=== PATIENT | male | born 1965 | race Caucasian/White ===

== ENCOUNTER 2016-05-17 11:46 | Inpatient (IN) | payer OTHER ==
[~2016-05-17] VITALS: Ht 180.3 cm; Wt 96.6 kg
[2016-05-17] VITALS (15 sets, daily range): BP systolic 131–169; BP diastolic 68–104; PULSE 99–138; RESP 14–24; O2SAT 89–99
[~2016-05-17 11:46] MED LIST: CARI350T PO; CITA20TA11 PO; HYDR50TA3 PO; INSU100I13 SUBQ; INSU100V28 SUBQ; LISI40TA PO; OXYC5CAP4 PO
--- NOTE | 2016-05-17 11:55 | ED.REPORT ---
HPI-Abd Pain M 40 and Over Date of Service May 17, 2016 ED Provider: Quan Gonzalez MD Pt is a 50 y/o male w/ a hx of IDDM, portal gastropathy, HTN, diverticulosis, hereditary hemochromatosis, hx colon polyps, presenting to the ED via EMS c/o vomiting onset this morning. He vomited once yesterday at noon and this morning at 02:00 he vomited coffee-ground emesis and called EMS. He c/o associated soft dark stool (non-melena), upper abdominal pain. He denies diarrhea, fever, chills , CP, SOB. The pt states he had a terrible flu-like illness 2 weeks ago which caused him to be bedridden. Last endoscopy 01/28/16 with final diagnosis of portal gastropathy. Nursing Notes Stated Complaint: VOMITING Chief Complaint: Male Abdominal Pain Nursing Notes Reviewed: Yes Allergies: Coded Allergies: No Known Drug Allergies (Verified Allergy, Unknown, 05/17/16) Scheduled Amlodipine (Amlodipine) 10 Mg Tablet 10 MG PO DAILY Atorvastatin (Lipitor) 10 Mg Tab 10 MG PO DAILY Citalopram (Citalopram) 20 Mg Tablet 20 MG PO DAILY Hydrochlorothiazide (Hydrochlorothiazide) 50 Mg Tablet 50 MG PO DAILY Insulin Glargine (Lantus U100 Solostar Insulin Pen) 100 Unit/1 Ml Insuln.pen 35 UNIT SUBQ EVENING Insulin Regular, Human (HUMulin-R U100 Insulin Vial) 100 Unit/1 Ml Vial 3-5 UNIT SUBQ ACHS SLIDING SCALE Lansoprazole DR (Prevacid) 30 Mg Capsule 20 MG PO DAILY Lisinopril (Lisinopril) 40 Mg Tablet 40 MG PO DAILY Lisinopril (Lisinopril) 40 Mg Tablet 40 MG PO DAILY Scheduled PRN Carisoprodol (Soma) 350 Mg Tablet 350 MG PO BID PRN PRN For Spasm Ondansetron ODT (Zofran ODT) 4 Mg Tablet 4 MG PO Q4H PRN PRN For Nausea Oxycodone (Roxicodone) 5 Mg Tablet 5 MG PO TID PRN PRN For Pain General Time Seen by MD: 11:53 Chief Complaint Other (Vomiting) Hx Obtained From: Patient, EMS Arrived By: Ambulance Sudden in Onset?: Yes Onset Occurred: Yesterday Symptom Duration: Intermittent Progression since Onset: Intermittent Location: : Abdomen upper Quality: Painful Radiation: : Does not radiate Severity: Current: Moderate Severity: Maximum: Moderate Past Medical History Past Medical History Notes: Followed by Dr. 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 Physical Exam Initial Vital Signs Vital Signs (First) Date Time Temp Pulse Resp B/P Pulse Ox O2 Delivery O2 Flow Rate FiO2 05/17/16 11:48 36.5 127 24 157/104 99 Room Air Initial VS: Reviewed, Vital signs abnormal Head / Eyes: Atraumatic, Normocephalic, PERRL ENT: Mucous membranes moist, Conjunctiva normal, No scleral icterus Neck: Supple, Full range of motion Extremities: Vascular intact, Neuro intact, No swelling, No tenderness Neurologic: Alert, Oriented, Nonfocal Psychiatric: Mood/affect normal, Behavior normal, Normal thought content General/Constitutional: Awake, Alert, Cooperative, Not toxic appearing Respiratory / Chest: Atraumatic, Breath sounds NL, Breath sounds = bilat, No respiratory distress, No rales, No rhonchi, No wheezing, No retractions, No stridor, No chest tenderness, No chest wall deformity, No crepitus Cardiovascular: Regular rhythm, Heart sounds NL, No gallop, No murmurs, No rubs , Cap refill not delayed, Peripheral circulation NL Heart Rate / Rhythm: Positive: Tachycardia Abdomen: Atraumatic, Soft, No rebound, No distention Upper abdominal tenderness with guarding Back: Full range of motion, Painless range of motion Skin: Atraumatic, Warm, Dry, Intact Color / Condition: Positive: Rash present Rash / Lesion Notes: Patchy multiple erythematous macules over chest, confluent with upper back Rectum / Perineum: Atraumatic, No gross blood Brown liquid stool Faintly guaiac positive Interpretation & Diagnostics Lab Results Interpretation Result Diagram: 05/17/16 1214 05/17/16 1214 Test 05/17/16 12:14 White Blood Count 15.5th/mm3 (3.8-10.1) Red Blood Count 5.35mil/mm3 (4.40-5.80) Hemoglobin 16.9g/dL (13.8-17.2) Hematocrit 45.8% (41.0-50.0) Mean Corpuscular Volume 85.6fL (81-100) Mean Corpuscular Hemoglobin 31.6pg (27.0-35.0) Mean Corpuscular Hemoglobin Concent 36.9% (32.0-37.0) Red Cell Distribution Width 12.9% (12.3-15.4) Platelet Count 134bil/L (150-400) Neutrophils (%) (Auto) 79.0% (40-74) Lymphocytes (%) (Auto) 12.1% (14-46) Monocytes (%) (Auto) 8.5% (4-12) Eosinophils (%) (Auto) 0% (0-5) Basophils (%) (Auto) 0.1% (0-3) Prothrombin Time 10.9sec (8.1-12.5) Prothromb Time International Ratio 1.02ratio Sodium Level 136mEq/L (134-144) Potassium Level 3.3mEq/L (3.5-5.2) Chloride Level 89mEq/L (97-108) Carbon Dioxide Level 24mmol/L (18-29) Blood Urea Nitrogen 23mg/dL (6-24) Creatinine 1.01mg/dL (0.76-1.27) Estimat Glomerular Filtration Rate 82mL/min (>59) Glucose Level 277mg/dL (60-99) Calcium Level 10.6mg/dL (8.5-10.1) Magnesium Level 1.9mg/dL (1.6-2.6) Total Bilirubin 1.1mg/dL (0.0-1.2) Aspartate Amino Transf (AST/SGOT) 27U/L (0-50) Alanine Aminotransferase (ALT/SGPT) 26U/L (0-44) Alkaline Phosphatase 90U/L (25-150) Total Protein 9.2g/dL (6.4-8.4) Albumin 5.3g/dL (3.4-5.0) Re-Eval/Medical Decision Source of Hx: Old records, EMS Time of Eval: 13:53 Patient Status: Condition improved, Moderate relief, Pain improved Re-Evaluation/Progress Note: Pt rechecked. Sleeping comfortably and is easily aroused. He is much improved and is no longer vomiting after medications. Abdomen is non-tender. He feels appropriate to be discharged as long as he can walk. Orthostatics will be performed. Time of Eval: 15:06 Re-Evaluation/Progress Note: Pt rechecked. The patient is orthostatic both objectively and subjectively and will be admitted. Informed pt of need for admission. Pt understands and agrees with plan for admission. All questions addressed. Consultation #1: Referral / Consult Name: Go Covington MD Call Returned at: 15:14 Receiving Worker: Will see patient, Agrees with eval, Agrees with plan Note: Case discussed with GI. Requests a second IV be placed. Will perform endoscopy later today. Consultation #2: Referral / Consult Name: Emma Sunshine MD Consulted With: Hospitalist Call Returned at: 15:39 Receiving Worker: Will see patient, Agrees with eval, Agrees with plan, Accepts admit Note: Case discussed. Counseled Regarding: Diagnosis, Lab results, Need for admission Discharge & Departure Primary Impression: Generalized abdominal pain Additional Impressions: Vomiting Vomiting type: unspecified Vomiting Intractability: non-intractable Nausea presence: unspecified Qualified Code: R11.10 - Vomiting, unspecified Hematochezia Orthostasis Disposition: ADMITTED TO HOSPITAL Vital Signs - All Vital Signs Date Time Temp Pulse Resp B/P Pulse Ox O2 Delivery O2 Flow Rate FiO2 05/17/16 14:35 138 24 151/94 95 Room Air 05/17/16 14:30 113 14 169/96 97 Room Air 05/17/16 14:05 108 17 136/68 95 Room Air 05/17/16 11:48 36.5 127 24 157/104 99 Room Air )( All Prior VS Reviewed: Yes Condition: Stable Referrals: Zelalem Echols MD (PCP) Scribe Attestation Portions of this note were transcribed by Min Savage. I, Dr. Gonzalez personally performed the history, physical exam and medical decision-making; I reviewed and confirmed the accuracy of the information in the transcribed note. Signed by Sunitha Mejia, 05/17/16 - 0402 copies to: Zelalem Echols MD, Kirk H MD May 17, 2016 11:55 MIN SAVAGE May 17, 2016 12:01
[2016-05-17] MEDS ORDERED: 0.9% Sodium Chloride 1,000 ML IV ONE (12:01)
[2016-05-17] MEDS ORDERED: Acetaminophen IV 1,000 MG in IV Premix 1 EACH IV ONE (12:05)
[2016-05-17] MEDS ORDERED: Pantoprazole 4 mg/mL 10 mL Inj IVPUSH ONE (12:05)
[2016-05-17] MEDS ORDERED: MetoCLOpramide 5 mg/mL 2 mL Inj IVPUSH ONE ×2 (12:05→15:05)
[2016-05-17] MEDS ORDERED: AMLO10TA3 PO (12:09)
[2016-05-17] MEDS ORDERED: ATRV10T PO (12:09)
[2016-05-17] MEDS ORDERED: LISI40TA PO (12:09)
[2016-05-17] MEDS ORDERED: OXYC-474 PO (12:09)
[2016-05-17 12:18] LABS: BASOPHILS % (AUTO) 0.1 % (0-3); EOSINOPHILS % (AUTO) 0 % (0-5); MONOCYTES % (AUTO) 8.5 % (4-12); Mean Corpuscular Hemoglobin 31.6 pg (27.0-35.0); Mean Corpuscular Volume 85.6 fL (81-100); Platelet Count 134 bil/L (150-400)
[2016-05-17 12:22] LABS: INR 1.02 ratio
[2016-05-17 12:30] LABS: Magnesium 1.9 mg/dL (1.6-2.6)
[2016-05-17] MEDS ORDERED: LANS30CA14 PO (14:01)
[2016-05-17] MEDS ORDERED: ONDA4TAB9 PO (14:01)
[2016-05-17] MEDS ORDERED: HYDROmorphone 1 mg/mL Inj IVPUSH PRN (15:05)
[2016-05-17] MEDS ORDERED: Pantoprazole Inj 80 MG, Pharmacy To Mix 1 EA in 0.9% Sodium Chloride 80 ML IV ONE ×2 (15:05)
--- NOTE | 2016-05-17 15:49 | PCM.HPANE ---
Patient Data Surgeon Admitting Provider: Attending Provider:Go Covington MD Primary Care Physician:Zelalem Echols MD Other Provider: Reason for Visit Upper Gi Bleed Ht/WT & BMI Height (Feet): 5 Height (Inches): 11 Weight (Kilograms): 95.91 Body Mass Index Allergies Coded Allergies: No Known Drug Allergies (Verified Allergy, Unknown, 05/17/16) Past Anesthesia History Anesthesia History: Denies:: Abnormal Airway, Anesthesia Reactions, Difficult Intubation, Fam Anesthesia Reaction, Fam Malignant Hypertherm, Malignant Hyperthermia Diabetes History Hx Diabetes?: Yes Type of Diabetes: Type II Glycemic Control: Insulin Dependent MRSA MRSA: No Medications Active Scripts Ondansetron ODT (Zofran ODT)4 Mg Tablet4 Mg PO Q4H PRN For Nausea #20 TABLET Prov:Quan Gonzalez MD 05/17/[address] (Prevacid)30 Mg [id number] Mg PO DAILY #20 CAPSULE Ref 0 Prov:Quan Gonzalez MD 05/17/16 Reported Medications Atorvastatin (Lipitor)10 Mg Tab10 Mg PO DAILY Ref 0 05/17/16 Amlodipine 10 Mg Heytau06 Mg PO DAILY Ref 0 05/17/16 Lisinopril 40 Mg [id number] Mg PO DAILY 30 Days Ref 0 05/17/16 Oxycodone (Roxicodone)5 Mg Tablet5 Mg PO TID PRN For Pain Ref 0 05/17/16 Hydrochlorothiazide 50 Mg Rcagua79 Mg PO DAILY Ref 0 12/06/15 Lisinopril 40 Mg Xgdwxo15 Mg PO DAILY Ref 0 12/06/15 Carisoprodol (Soma)350 Mg Wesrik186 Mg PO BID PRN For Spasm 08/23/15 Insulin Regular, Human (HUMulin-R U100 Insulin Vial)100 Unit/1 Ml Vial3-5 Unit SUBQ ACHS #1 VIAL Ref 0 SLIDING SCALE 06/25/15 Citalopram 20 Mg Hyvckq72 Mg PO DAILY Ref 0 06/25/15 Insulin Glargine (Lantus U100 Solostar Insulin Pen)100 Unit/1 Ml Insuln.pen35 Unit SUBQ EVENING #1 PENINJ Ref 0 04/29/14 Discontinued Scripts oxyCODONE 5 Mg Capsule5 Mg PO Q4H PRN For Pain #20 CAPSULE Ref 0 Prov:Jermaine Zendejas MD 12/03/13 History History of ENT Problems?: No HEENT History: Denies:: Abnormal Airway Difficult Intubation Dysphagia Hearing Problem Sinus Problem Hx of Heart Problems?: Yes Cardiovascular History: Positive for:: Edema (ANKLES, none present today) Hypertension (hyperlipidemia) Denies:: AICD Atrial Fibrillation Chest Pain Congestive Heart Failure Heart Murmur Pacemaker Rheumatic Fever Thrombophlebitis Valvular Heart Disease Hx of Respiratory Problem?: No Respiratory History: Positive for:: Cough Dyspnea Denies:: Asthma COPD Emphysema Hemoptysis Pneumonia Tuberculosis Use of C-PAP Machine Hx Neurologic Problems?: Yes Neurological History: Positive for:: Headaches Denies:: Alzheimer's Disease CVA Dementia Dizziness Seizures Hx of GI Problems?: Yes Gastrointestinal History: Positive for:: Cirrhosis Gastroesphageal Reflux Hepatitis (hep C s/p anti-retroviral therapy(HARVONI)) Denies:: Diverticulitis (DIVERTICULOSIS) Heartburn Hiatal Hernia Rectal Bleeding (HX OF COLON POLYPS) Hx of Problems?: Yes Genitourinary History: Positive for:: Kidney Stones (HX OF) Denies:: HX of Hemodialysis Urinary Tract Infection Male Hx: Positive for:: Prostate Problems (S/P TUR PROSTATIC ABCESS 2013) Denies:: Scrotal Mass Testicular Surgery Skin History: Positive for:: History Skin Disorders? (HX OF CHRONIC PRURITIS/ RASHES) Denies:: Pressure Ulcers Hx Musculoskeletal Problems?: Yes Musculoskeletal History: Positive for:: Back Injury (chronic back pain) Musculoskeletal Trauma (HX FX HAND/WRIST S/P RPR MCA'S X3) Denies:: Joint Replacement Hx of Psycho/Social Problems?: Yes Psycho Social History: Positive for:: Anxiety Hx Depression Denies:: Bipolar Disorder Hx Surgeries?: Yes (BACK, HIP, FINGER WRIST, prostate) Hx Any Other Health Problems?: Yes Other History: Positive for:: Hospitalization Denies:: Cancer Endocrine Disease (c/of chills) Thyroid Disease History Blood Transfusions: Denies:: Blood Transfuse Reaction Blood Transfusions Hx Diabetes: Yes Hx Alcohol Use: Yes (OCCASIONALLY)Hx Substance Use: Yes (CURRENT MARIJUANA; HX (REMOTE) OF COCAINE) Smoking Status: Never Smoker Have You Smoked inLast 12 mo: No Stop/Bang Risk Assessment Category Category 1A: Patient has history of documented sleep apnea, and HAS NOT received any narcotic, sedative or anesthesia administration during this stay. Category 1B: Patient has history of documented sleep apnea, and HAS received any narcotic , sedative or anesthesia administration during this stay Category 2: Patient has SUSPECTED Obstructive Sleep Apnea, and HAS received any narcotic , sedative or anesthesia administration during this stay. Category 3: Patient has SUSPECTED Obstructive Sleep Apnea and HAS NOT received narcotic, sedative or anesthesia administration during this stay. Category 4: Outpatient in Procedural Areas with known sleep apnea or who screen positive for High Risk via the STOP/BANG questionnaire. Exam Exam Vital Signs Vital Signs Date Time Temp Pulse Resp B/P Pulse Ox O2 Delivery O2 Flow Rate FiO2 05/17/16 14:35 138 24 151/94 95 Room Air 05/17/16 14:30 113 14 169/96 97 Room Air 05/17/16 14:05 108 17 136/68 95 Room Air 05/17/16 11:48 36.5 127 24 157/104 99 Room Air General Appearance: Alert, Oriented X3, Cooperative, Mild Distress HEENT/AIRWAY: MP 2, Neck Movement (from), Mouth Opening (wnl, missing teeth) Lungs: Clear to Auscultation Heart: Exam Unremarkable (HR of around 120) Meds/Labs/Diagnostics Admission Meds Current Medications Pantoprazole 80 mg 80 mg STAT ONCE IVPUSH Last administered on 05/17/16 12:27 ; Start 05/17/16 at 12:05; Stop 05/17/16 at 12:06; Status DC Sodium Chloride 1,000 ml @ 0 mls/hr Q0M ONCE IV Last administered on 05/17/16 12:26; Start 05/17/16 at 12:01; Stop 05/17/16 at 12:05; Status DC Acetaminophen 1000 mg/Premix 100 ml @ 400 mls/hr ONCE ONCE IV Last administered on 05/17/16 13:02; Start 05/17/16 at 12:05; Stop 05/17/16 at 12:19; Status DC Pantoprazole/ Miscellaneous/ Sodium Chloride (Protonix Inj/ Pharmacy To Mix/ Normal Saline) 100 ml @ 10 mls/hr ONCE ONCE IV Last administered on 05/17/16 15:41; Start 05/17/16 at 15:05; Stop 05/18/16 at 01:04 Metoclopramide HCl (Reglan Inj) 5 mg ONCE ONCE IVPUSH Last administered on 05/17t 15:41; Start 05/17/16 at 15:05; Stop 05/17/16 at 15:09; Status DC Labs Test 05/17/16 12:14 White Blood Count 15.5th/mm3 (3.8-10.1) Red Blood Count 5.35mil/mm3 (4.40-5.80) Hemoglobin 16.9g/dL (13.8-17.2) Hematocrit 45.8% (41.0-50.0) Mean Corpuscular Volume 85.6fL (81-100) Mean Corpuscular Hemoglobin 31.6pg (27.0-35.0) Mean Corpuscular Hemoglobin Concent 36.9% (32.0-37.0) Red Cell Distribution Width 12.9% (12.3-15.4) Platelet Count 134bil/L (150-400) Neutrophils (%) (Auto) 79.0% (40-74) Lymphocytes (%) (Auto) 12.1% (14-46) Monocytes (%) (Auto) 8.5% (4-12) Eosinophils (%) (Auto) 0% (0-5) Basophils (%) (Auto) 0.1% (0-3) Prothrombin Time 10.9sec (8.1-12.5) Prothromb Time International Ratio 1.02ratio Sodium Level 136mEq/L (134-144) Potassium Level 3.3mEq/L (3.5-5.2) Chloride Level 89mEq/L (97-108) Carbon Dioxide Level 24mmol/L (18-29) Blood Urea Nitrogen 23mg/dL (6-24) Creatinine 1.01mg/dL (0.76-1.27) Estimat Glomerular Filtration Rate 82mL/min (>59) Glucose Level 277mg/dL (60-99) Calcium Level 10.6mg/dL (8.5-10.1) Magnesium Level 1.9mg/dL (1.6-2.6) Total Bilirubin 1.1mg/dL (0.0-1.2) Aspartate Amino Transf (AST/SGOT) 27U/L (0-50) Alanine Aminotransferase (ALT/SGPT) 26U/L (0-44) Alkaline Phosphatase 90U/L (25-150) Total Protein 9.2g/dL (6.4-8.4) Albumin 5.3g/dL (3.4-5.0) Plan Impression Patient chart reviewed, patient interviewed and anesthestic plan with risks, benefits, and alternatives discussed, and informed consent obtained. NPO Status: COFFEE BLACK 5AM ASA Physical Status: ASA4 Plus Emergency Anesthetic Plan: GA Bene/Risks/Altern/Consents: Yes HP Complete Prior to Induction: Yes Jose Rafael Henderson MD May 17, 2016 15:49
[2016-05-17] MEDS ORDERED: Lactated Ringer's 1,000 ML IV ONE (15:52)
[2016-05-17] MEDS ORDERED: Insulin Human REGular-Omnicell 100 Unit/mL ONE (15:59)
--- NOTE | 2016-05-17 16:36 | PCM.ANEP1 ---
Post Anesthesia Phase 1 PACU Phase 1 Assessment Vital Signs Vital Signs Date Time Temp Pulse Resp B/P Pulse Ox O2 Delivery O2 Flow Rate FiO2 05/17/16 15:55 37.7 118 14 132/96 96 Nasal Cannula 2 05/17/16 15:51 36.5 138 24 151/94 95 Room Air 05/17/16 15:40 117 18 167/100 97 Nasal Cannula 2 05/17/16 15:30 89 Room Air 05/17/16 14:35 138 24 151/94 95 Room Air 05/17/16 14:30 113 14 169/96 97 Room Air 05/17/16 14:05 108 17 136/68 95 Room Air 05/17/16 11:48 36.5 127 24 157/104 99 Room Air Anesthetic Administered: GA Level of Alertness: Awake, talking MARAVILLA's with Equal Strength: Yes Pain: Yes Nausea or Vomiting: No Oxygen Delivery: Nasal Cannula Lungs: Normal Air Movement Jose Rafael Henderson MD May 17, 2016 16:36
--- NOTE | 2016-05-17 16:37 | PCM.ANEP2 ---
Post Anesthesia Evaluation ASA/CMS Post Anesthesia VS in Patient's Normal Range?: Yes Resp Stable; Airway Patent?: Yes CV Function & Hydration Stable: Yes Mental Status Recovered?: Yes Pain control Satisfactory?: Yes N/V Control Satisfactory?: Yes Jose Rafael Henderson MD May 17, 2016 16:37
[2016-05-17 16:49] LABS: Lipase 27 U/L (13-60)
--- NOTE | 2016-05-17 16:52 | PCM.CHPMED ---
Subjective Date of Service: May 17, 2016 Provider requesting consult: Quan Gonzalez MD Primary Physician: Admitting Physician: Primary Care Physician: Zelalem Echols MD Attending Physician: Go Covington MD Chief Complaint: Chief Complaint: Abdominal pain, nausea, vomiting, hematemesis History of Present Illness: Patient is a 50 year old male with hx of diabetes on insulin, portal gastropathy , HTN, diverticulosis, hereditary hemochromatosis, Hep C treated with Harvoni, and colon polyps who presents with nausea and vomiting with hematemesis and abdominal pain. He states he vomited yesterday at noon and continued to vomit throughout the night, associated with fevers, night sweats, and chills. Early this morning he reports he vomited coffee-ground emesis and called EMS and was brought to the ED. He also complains of soft dark stool, but denies black tarry stool. He reports central upper abdominal pain which does not radiate and comes in waves. He has been unable to eat for the past 2 days because of his nausea and abdominal pain. He denies diarrhea, CP, SOB. The pt states he had a flu- like illness 2 weeks ago which caused him to be bedridden. In the ED, he was found to have brown stool that was faintly guaiac positive. Denies NSAID or Tylenol use. No family history of colon cancer, Crohn's, UC, or celiac disease. He states he doesn't drink alcohol although he drank heavily in his 20s. Last EGD 01/28/16 showed portal gastropathy. Last colonoscopy 07/20/14 showed 2 polyps and scattered sigmoid diverticula. Abdominal ultrasound on 12/21/15 showed liver with coarse echotexture, with splenomegaly redemonstrated suggesting portal hypertension. A region of increased echogenicity was seen within the posterior right hepatic lobe which likely represents periportal fibrosis but subcentimeter mass cannot totally be completely excluded; recommended follow up US in 3 months. Cholelithiasis without evidence for cholecystitis was also seen. Review of Systems: Comprehensive review of systems conducted and was negative except for the pertinent positives listed above. 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 Portal gastropathy Diverticulosis Hx colon polyps Hx prostatic abscess s/p removal Chronic back pain Depression Anxiety Surgical History Back surgery Hip surgery Finger surgery Wrist surgery Prostate abscess removal Allergies: Coded Allergies: No Known Drug Allergies (Verified Allergy, Unknown, 05/17/16) Social History Hx Alcohol Use: Yes (OCCASIONALLY)Hx Substance Use: Yes (CURRENT MARIJUANA; HX (REMOTE) OF COCAINE)Hx Tobacco Use: No Smoking Status: Never Smoker Exam Vital Signs Vital Sign - Last Date Time Temp Pulse Resp B/P Pulse Ox O2 Delivery O2 Flow Rate FiO2 05/17/16 15:55 37.7 118 14 132/96 96 Nasal Cannula 2 Additional Information: General: Alert, Oriented X3, Cooperative, No Acute Distress Head: Normocephalic, atraumatic. External ears normal. Eyes: PERRLA, EOMI. Anicteric sclerae. Mouth: Mouth Normal, Mucous Membranes Dry Neck: Neck supple with full range of motion. Poor skin turgor. Chest & Lungs: Clear to auscultation bilaterally with no crackles, wheezes, or rhonchi. Cardiovascular: Regular Rate/Rhythm, Normal S1, Normal S2, No Murmurs/Rubs/ Gallops Abdomen: Severe epigastric tenderness to palpation, with no tenderness in the 4 quadrants, Non-distended, No masses, Normoactive bowel tones, Soft Musculoskeletal: Normal Range of Motion Skin: Scattered macular rash across lower chest. Extremities: No cyanosis/clubbing/edema bilaterally Neurological: Grossly Neurologically Intact, Normal Speech Lab and Diagnostics Result Diagram: 05/17/16 1214 05/17/16 1214 Assessment & Plan Assessment Patient is a 50 year old male with hx of diabetes on insulin, portal gastropathy , HTN, diverticulosis, hereditary hemochromatosis, Hep C treated with Harvoni, and colon polyps who presents with nausea and vomiting with hematemesis and abdominal pain. Ulcerative esophagitis - EGD today showed L.A. Class D ulcerative esophagitis, encompassing 100% of the circumference of the esophagus. Likely the cause of his hematemesis. His Hb today is normal at 16.9, but suspect hemoconcentration given his elevated total protein of 9.2. Will have to re-evaluate after he receives IV fluids and monitor his H&H. - Carafate 1g QID for 2 weeks - Protonix 40 mg BID - Clear liquid diet - Trend H&H, transfuse as necessary. Abdominal pain, acute. - Pt presents with central abdominal pain and epigastric pain on palpation. US on 12/21/15 showed cholelithiasis without evidence for cholecystitis was also seen. Differential includes his ulcerative esophagitis, but cannot yet rule out pancreatitis given his nausea and epigastric pain. Cholecystitis/ choledocholithiasis are still possibilities, and can still occur in the absence of elevated bilirubin, LFTs, or lipase. - Amylase and lipase ordered - Monitor CMP - Abdominal ultrasound ordered - Recommend aggressive fluid resuscitation Dehydration, acute. - Pt presents with signs of hemoconcentration (total protein 9.2) and appears dehydrated on physical exam. Given his possible pancreatitis, recommend aggressive IV hydration. - Aggressive fluids, 200 ml/hr for around 4 hours, then down to 150 ml/hr History of possible liver mass. - Abdominal ultrasound on 12/21/15 showed a region of increased echogenicity within the posterior right hepatic lobel; possible periportal fibrosis vs possible mass. If the repeat US is negative, we will consider proceeding with abdominal MRI. - Ordered repeat abdominal US History of hereditary hemochromatosis. - Followed by Dr. Horne. Given his history of hemochromatosis and Hep C (now in remission), he is at risk for hepatocellular carcinoma. Given his risk, we will have to monitor this possible liver mass closely. Problems: Attending Statement patient seen and examined with resident physician I agree with his note and plan as outlined in his plan. Ramo Maxwell May 17, 2016 16:07 Go Covington MD May 20, 2016 12:34
--- NOTE | 2016-05-17 16:59 | ENDO ---
[address] [address] ENDOSCOPY PROCEDURE PATIENT: JANNIE GAMBOA : 1965 MR#: [id number] ADMIT: 05/17/2016 JOB ID: [id number] PROCEDURE: Esophagogastroduodenoscopy. INDICATION: Hematemesis. Patient's ASA classification, Mallampati score and medications as per Dr. Jose Rafael Henderson' anesthesia report. INSTRUMENT USED: GIF H 180 J. PROCEDURE DETAILS: After informed consent was obtained, the patient was brought into the GI suite, where he was placed on oxygen via nasal cannula and monitored with continuous pulse oximeter, telemetry, and blood pressure monitoring. A time-out was performed and then he was placed in a left lateral decubitus position and medications were administered for sedation. A bite block was placed. The standard EGD scope was inserted through the bite block and advanced under direct visualization to the second portion of the duodenum without difficulty. FINDINGS: 1. There was evidence of old blood noted in the examined portions of the duodenum that we were able to clear with irrigation and suctioning. 2. Normal-appearing pylorus. In the antrum, body and fundus of the stomach, there was evidence of old blood in the form of coffee grounds which we were able to clear with suction irrigation. No fresh blood was seen in the stomach or duodenum. 3. The GE junction was at approximately 40 cm. From 40 cm extending up to 30 cm proximally, the mucosa was ulcerated, friable, appearance was consistent with ulcerative esophagitis in a circumferential fashion. The proximal to 30 cm the mucosa appeared unremarkable. 4. No esophageal or gastric varices were seen. 5. Portal gastropathy was appreciated in the antrum and gastric body of the stomach. IMPRESSION: 1. LA class D ulcerative esophagitis. 2. Portal gastropathy. RECOMMENDATIONS: 1. Sucralfate 1 g q.i.d. Continue PPI b.i.d. Recommend abdominal imaging to evaluate the patient's complaint of abdominal pain and check amylase and lipase. Would recommend discontinuing PPI drip. 2. A clear liquid diet. COMPLICATIONS: None. ESTIMATED BLOOD LOSS: 0. MTDD
[2016-05-17] MEDS ORDERED: fentaNYL-PF 50 mCg/mL 2 mL Inj ONE (17:26)
[2016-05-17] MEDS ORDERED: Propofol 10,000 mCg/mL 20 mL Inj ONE (17:26)
--- NOTE | 2016-05-17 17:47 | NUR ---
Admit [facility] Rm 3028 Pt admitted to [facility] from ENDO at 1720. Pt c/o abd pain 07/24. Currently NPO-waiting for US of abd. IVF and PPI IV infusing. 1 IVS in R arm, patent, 1 infusing fluids. Pt oriented to room and facility. All questions answered. All admit BUT med rec complete. Bed in low position, upper rails up, call light in reach. Will continue with frequent rounding.
--- NOTE | 2016-05-17 18:52 | DRSVH ---
PROCEDURE: US ABDOMEN ([id number]) INDICATIONS: Abdominal pain, hx gallstones and poss liver mass TECHNIQUE: Real-time scanning was performed of the abdominal and retroperitoneal organs, with image documentatio n. COMPARISON: [facility] Ultrasound, US, US ABDOMEN, 05/10/2015, 8:11. FINDINGS: Liver: Liver is normal in size and homogeneous in echotexture. Gallbladder: The multiple mobile gallstones are identified. No gallbladder wall thickening. No per icholecystic fluid. No sonographic Toledo sign. Biliary ducts: Intrahepatic bile ducts are non-dilated. Extrahepatic bile duct caliber measures 6.1 mm. Normal is 6-7 mm or less in diameter, or 10 mm or less post-cholecystectomy. Pancreas: Visualized portions of the pancreas are sonographically normal. Spleen: Spleen is enlarged measuring 14.0 cm Spleen is homogeneous in echotexture. Kidneys: Kidneys are normal in size and echotexture. Right kidney measures 13.3 cm long; left kidne y measures 12.9 cm long. No hydronephrosis or nephrolithiasis. No solid masses. Left renal cyst is noted. Aorta: Visualized aorta is normal in caliber at less than 3 cm. Iliacs: Proximal common iliac arteries are normal in caliber at less than 2.5 cm. IVC: Intrahepatic inferior vena cava is patent. Miscellaneous: No free abdominal fluid. IMPRESSION: 1. Cholelithiasis without evidence of cholecystitis. 2. Sonographic splenomegaly. Please correlate with clinical data. 3. Left renal cyst. Dictated by: Tracey Meier MD, PhD on 05/17/2016 at 18:47 Approved by: Tracey Meier MD, PhD on 05/17/2016 at 18:50
[2016-05-17] MEDS: 0.9% Sodium Chloride 1,000 ML IV SCH ×2 (19:51→23:28)
--- NOTE | 2016-05-17 21:29 | PCM.HPMED ---
Subjective Date of Service May 17, 2016 Primary Provider: Admitting Physician: Go Covington MD Primary Care Physician: Zelalem Echols MD Attending Physician: Go Covington MD Chief Complaint: Abdominal pain, nausea, vomiting, hematemesis History of Present Illness: Patient is a 50 year old male with hx of diabetes on insulin, portal gastropathy , HTN, diverticulosis, hereditary hemochromatosis, Hep C treated with Harvoni, and colon polyps presented with intractable nausea, frequent emesis, abdominal pain. Patient stated the symptoms started 2 days ago, appetite has decreased, constant nausea and vomiting, early this morning patient vomited coffee- grounded vomitus, also had dark stools, never had similar episode in the past, complaining of abdominal pain, epigastric, sharp, 10/10, no radiation. pt also mild difficulty of swallowing at the lower neck level. this is also new to the patient. Patient was recently sick with flu-like symptoms 2 weeks ago but recovered. in ED, [id number], tachy [id number], afebrile, 99% on RA, found to have FOBT+, seen by GI, started on PPI drip, taken to EGD, which showed ulcerative esophagitis, portal gastropathy(seen in last EGD ), PPI switch to bid, sucralfate qid started. on MPC post-EGD, patient still felt mildly nauseous, however pain seems really subsided, comfortably laying down on the back ROS: Denied fever, chills, dysuria, frequency, urgency, diarrhea, constipation, sick contacts, travel, chest pain, palpitation Review of Systems: Pertinent positives as noted in history of present illness. All other systems were reviewed and are negative Allergies Coded Allergies: No Known Drug Allergies (Verified Allergy, Unknown, 05/17/16) Home Medications DOSAGE HAS TO BE VERIFIED Scheduled Amlodipine (Amlodipine) 10 Mg Tablet 10 MG PO DAILY Atorvastatin (Lipitor) 10 Mg Tab 10 MG PO DAILY Citalopram (Citalopram) 20 Mg Tablet 20 MG PO DAILY Hydrochlorothiazide (Hydrochlorothiazide) ??50 Mg Tablet 50 MG PO DAILY Insulin Glargine (Lantus U100 Solostar Insulin Pen) 100 Unit/1 Ml Insuln.pen 35 UNIT SUBQ EVENING Insulin Regular, Human (HUMulin-R U100 Insulin Vial) 100 Unit/1 Ml Vial 3-5 UNIT SUBQ ACHS SLIDING SCALE Patient is not sure taking PPI ?Lansoprazole DR (Prevacid) 30 Mg Capsule 20 MG PO DAILY Lisinopril (Lisinopril) 40 Mg Tablet 40 MG PO DAILY Scheduled PRN Carisoprodol (Soma) 350 Mg Tablet 350 MG PO BID PRN PRN For Spasm Ondansetron ODT (Zofran ODT) 4 Mg Tablet 4 MG PO Q4H PRN PRN For Nausea Oxycodone (Roxicodone) 5 Mg Tablet 5 MG PO TID PRN PRN For Pain 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 Portal gastropathy Diverticulosis Hx colon polyps Hx prostatic abscess s/p removal Chronic back pain Depression Anxiety Surgical History Surgical History Back surgery Hip surgery Finger surgery Wrist surgery Prostate abscess removal Patient is scheduled to have a neck fusion surgery next week Family History No CAD Social History Hx Alcohol Use: Yes (quit drinking "my liver cannot handle it") Hx Substance Use: Yes (CURRENT MARIJUANA; ) Hx Tobacco Use: No Smoking Status: Never Smoker Additional Information , lives alone Exam Vital Signs Vital Sign - Last Date Time Temp Pulse Resp B/P Pulse Ox O2 Delivery O2 Flow Rate FiO2 05/17/16 20:48 37.0 106 16 162/96 98 Room Air 05/17/16 17:00 2 Exam NAD, comfortably laying down on the bed no JVD, MMM, no LAD RRR, nl s1, s2 no mrg CTAB, no w,c S,ND, diffuse abdominal tenderness,normoactive BS+ warm, no edema, pulses 2/2 Lab and Diagnostics Result Diagram: 05/17/16 1910 05/17/16 1214 Additional Diagnostics: PROCEDURE: Esophagogastroduodenoscopy. INDICATION: Hematemesis. Patient's ASA classification, Mallampati score and medications as per Dr. Jose Rafael Henderson' anesthesia report. INSTRUMENT USED: GIF H 180 J. PROCEDURE DETAILS: After informed consent was obtained, the patient was brought into the GI suite, where he was placed on oxygen via nasal cannula and monitored with continuous pulse oximeter, telemetry, and blood pressure monitoring. A time-out was performed and then he was placed in a left lateral decubitus position and medications were administered for sedation. A bite block was placed. The standard EGD scope was inserted through the bite block and advanced under direct visualization to the second portion of the duodenum without difficulty. FINDINGS: 1. There was evidence of old blood noted in the examined portions of the duodenum that we were able to clear with irrigation and suctioning. 2. Normal-appearing pylorus. In the antrum, body and fundus of the stomach, there was evidence of old blood in the form of coffee grounds which we were able to clear with suction irrigation. No fresh blood was seen in the stomach or duodenum. 3. The GE junction was at approximately 40 cm. From 40 cm extending up to 30 cm proximally, the mucosa was ulcerated, friable, appearance was consistent with ulcerative esophagitis. The proximal to 30 cm mucosa appeared unremarkable. 4. No esophageal or gastric varices were seen. 5. Portal gastropathy was appreciated in the antrum and gastric body of the stomach. IMPRESSION: 1. LA class B ulcerative esophagitis. 2. Portal gastropathy. RECOMMENDATIONS: 1. Sucralfate 1 g q.i.d. Continue PPI b.i.d. Recommend abdominal imaging to evaluate the patient's complaint of abdominal pain and check amylase and lipase. Would recommend discontinuing PPI drip. 2. A clear liquid diet. COMPLICATIONS: None. ESTIMATED BLOOD LOSS: 0. Go Covington MD 05/17/16 9881 PROCEDURE: US ABDOMEN ([id number]) INDICATIONS: Abdominal pain, hx gallstones and poss liver mass TECHNIQUE: Real-time scanning was performed of the abdominal and retroperitoneal organs, with image documentation. COMPARISON: [facility] Ultrasound, US, US ABDOMEN, 05/10/2015, 8: 11. FINDINGS: Liver: Liver is normal in size and homogeneous in echotexture. Gallbladder: The multiple mobile gallstones are identified. No gallbladder wall thickening. No pericholecystic fluid. No sonographic Toledo sign. Biliary ducts: Intrahepatic bile ducts are non-dilated. Extrahepatic bile duct caliber measures 6.1 mm. Normal is 6-7 mm or less in diameter, or 10 mm or less post-cholecystectomy. Pancreas: Visualized portions of the pancreas are sonographically normal. Spleen: Spleen is enlarged measuring 14.0 cm Spleen is homogeneous in echotexture. Kidneys: Kidneys are normal in size and echotexture. Right kidney measures 13.3 cm long; left kidney measures 12.9 cm long. No hydronephrosis or nephrolithiasis. No solid masses. Left renal cyst is noted. Aorta: Visualized aorta is normal in caliber at less than 3 cm. Iliacs: Proximal common iliac arteries are normal in caliber at less than 2.5 cm. IVC: Intrahepatic inferior vena cava is patent. Miscellaneous: No free abdominal fluid. IMPRESSION: 1. Cholelithiasis without evidence of cholecystitis. 2. Sonographic splenomegaly. Please correlate with clinical data. 3. Left renal cyst. Dictated by: Tracey Meier MD, PhD on 05/17/2016 at 18:47 Approved by: Tracey Meier MD, PhD on 05/17/2016 at 18:50 Assessment & Plan Acute, active #UGIB, POA, secondary to ulcerative esophagitis on repeat EGD, no varices, but persistent portal gastropathy. lipase/amylase WNL, abd US showed GB stones, no signs of cholecystitis or pancreatitis. -appreciate GI recommendation -Continue PPI twice a day, sucralfate 4 times a day -Advanced to clears -Zofran when necessary for nausea -Continue IV fluids 200 mL per hour chronic, stable Hep C - s/p Harvoni therapy, LFT stable Insulin dependent diabetes, resume lantus 15unit this evening, increase with resuming diet, lispro SS Hypertension, hold BP med for now Hyperlipidemia, resume statin once med rec done Chronic back pain, percocet prn Depression, Anxiety, continue anti-depressant after med rec dispo:Patient will be admitted with inpatient status with expectation of inpatient therapy for more than 2 midnights diet:clears dvt ppx:HSQ Code VTE Mechanical Devices: Venous Foot Pump Time spent 65 minutes Emma Sunshine MD May 17, 2016 21:25
[2016-05-17] MEDS ORDERED: Insulin GLARgine 100 Unit/mL Syringe SUBQ ONE (21:30)
[2016-05-17] MEDS ORDERED: Glucose 40% Oral Gel 15 Gm Tube PO PRN (21:30)
[2016-05-17] MEDS: Insulin LISPRO 300 Unit/3 mL Inj SUBQ SCH (23:25)
[2016-05-17] MEDS: Sucralfate 1,000 mg Tablet PO SCH (23:28)
[2016-05-18] VITALS (8 sets, daily range): BP systolic 147–164; BP diastolic 83–95; PULSE 84–103; RESP 16–21; O2SAT 96–97
[2016-05-18] MEDS: 0.9% Sodium Chloride 1,000 ML IV SCH ×5 (04:30→21:37)
--- NOTE | 2016-05-18 04:36 | NUR ---
GI c/o slightly nausea especially when getting up; no vomiting noted this shift. tolerating clear liquid diet. has slight abdominal tenderness. using urinal in bed.
[2016-05-18 06:38] LABS: BASOPHILS % (AUTO) 0.1 % (0-3); EOSINOPHILS % (AUTO) 0.2 % (0-5); MONOCYTES % (AUTO) 9.9 % (4-12); Mean Corpuscular Hemoglobin 31.7 pg (27.0-35.0); Mean Corpuscular Volume 89.7 fL (81-100); NEUTROPHILS % (AUTO) 74.2 % (40-74); Platelet Count 77 bil/L (150-400)
[2016-05-18] MEDS: Ondansetron 2 mg/mL 2 mL Inj IVPUSH PRN ×3 (06:49→17:57)
[2016-05-18 06:52] LABS: Phosphorus 1.8 mg/dL (2.5-4.9)
[2016-05-18] MEDS: Pantoprazole 40 mg ER24 Tablet PO SCH ×2 (08:03→17:45)
[2016-05-18] MEDS: Sucralfate 1,000 mg Tablet PO SCH ×4 (08:03→21:36)
[2016-05-18] MEDS: Insulin Human REGular 300 Unit/3 mL Inj SUBQ SCH ×2 (08:06→12:08)
[2016-05-18] MEDS: Insulin LISPRO 300 Unit/3 mL Inj SUBQ SCH ×4 (08:07→21:36)
[2016-05-18] MEDS ORDERED: Sucralfate 1,000 mg Tablet PO SCH (08:30)
--- NOTE | 2016-05-18 09:18 | NUR ---
Social Work: Screening Data: Pt is a 50 y/o male admitted for upper GI bleed. Pt's PCP is Dr Echols, pt's insurance is [employer]. Pt readmit score is 4. No d/c planning needs anticipated at this time. [employer] will continue to follow if needs arise. Assessment: Pt who is independent at baseline. Plan: Pt will d/c home via POV when medically stable. No d/c planning needs anticipated at this time. [employer] will continue to follow if needs arise. ADDISON Ramirez
--- NOTE | 2016-05-18 13:39 | PCM.PNMED ---
Subjective Date of Service May 18, 2016 Subjective Patient continued to have nausea and abdominal pain overnight. This morning he reports severe nausea that comes in waves, accompanied by severe epigastric pain. He denies vomiting or diarrhea but reports fevers, chills, and drenching night sweats, as well as shortness of breath associated with his pain. Exam Vital Signs Vital Sign - Last Date Time Temp Pulse Resp B/P Pulse Ox O2 Delivery O2 Flow Rate FiO2 05/18/16 09:51 36.7 93 21 164/91 97 Room Air 05/17/16 17:00 2 Intake and Output 05/17/16 05/17/16 05/18/16 Cumulative From/Thru 15:00 23:00 07:00 05/17/16 11:48 - 05/18/16 06:06 Intake Total 1500 ml 200 ml 2282 ml 3982 ml Balance 1500 ml 200 ml 2282 ml 3982 ml IV Total 1500 ml 200 ml 2282 ml 3982 ml Exam General: Alert, Oriented X3, Cooperative, Moderate distress due to abdominal pain Eyes: PERRLA, EOMI. Anicteric sclerae. Chest & Lungs: Clear to auscultation bilaterally with no crackles, wheezes, or rhonchi. Cardiovascular: Regular Rate/Rhythm, Normal S1, Normal S2, No Murmurs/Rubs/ Gallops Abdomen: Severe epigastric tenderness to palpation, with no tenderness in the 4 quadrants, Non-distended, No masses, Normoactive bowel tones Musculoskeletal: Normal Range of Motion Skin: Scattered macular rash across lower chest. Extremities: No cyanosis/clubbing/edema bilaterally Neurological: Grossly Neurologically Intact, Normal Speech Lab and Diagnostics Result Diagram: 05/18/1661305/18/16613 Additional Diagnostics PROCEDURE: Esophagogastroduodenoscopy. INDICATION: Hematemesis. Patient's ASA classification, Mallampati score and medications as per Dr. Jose Rafael Henderson' anesthesia report. INSTRUMENT USED: GIF H 180 J. PROCEDURE DETAILS: After informed consent was obtained, the patient was brought into the GI suite, where he was placed on oxygen via nasal cannula and monitored with continuous pulse oximeter, telemetry, and blood pressure monitoring. A time-out was performed and then he was placed in a left lateral decubitus position and medications were administered for sedation. A bite block was placed. The standard EGD scope was inserted through the bite block and advanced under direct visualization to the second portion of the duodenum without difficulty. FINDINGS: 1. There was evidence of old blood noted in the examined portions of the duodenum that we were able to clear with irrigation and suctioning. 2. Normal-appearing pylorus. In the antrum, body and fundus of the stomach, there was evidence of old blood in the form of coffee grounds which we were able to clear with suction irrigation. No fresh blood was seen in the stomach or duodenum. 3. The GE junction was at approximately 40 cm. From 40 cm extending up to 30 cm proximally, the mucosa was ulcerated, friable, appearance was consistent with ulcerative esophagitis. The proximal to 30 cm mucosa appeared unremarkable. 4. No esophageal or gastric varices were seen. 5. Portal gastropathy was appreciated in the antrum and gastric body of the stomach. IMPRESSION: 1. LA class B ulcerative esophagitis. 2. Portal gastropathy. RECOMMENDATIONS: 1. Sucralfate 1 g q.i.d. Continue PPI b.i.d. Recommend abdominal imaging to evaluate the patient's complaint of abdominal pain and check amylase and lipase. Would recommend discontinuing PPI drip. 2. A clear liquid diet. COMPLICATIONS: None. ESTIMATED BLOOD LOSS: 0. Go Covington MD 05/17/16 4421 PROCEDURE: US ABDOMEN ([id number]) INDICATIONS: Abdominal pain, hx gallstones and poss liver mass TECHNIQUE: Real-time scanning was performed of the abdominal and retroperitoneal organs, with image documentation. COMPARISON: [facility] Ultrasound, US, US ABDOMEN, 05/10/2015, 8: 11. FINDINGS: Liver: Liver is normal in size and homogeneous in echotexture. Gallbladder: The multiple mobile gallstones are identified. No gallbladder wall thickening. No pericholecystic fluid. No sonographic Toledo sign. Biliary ducts: Intrahepatic bile ducts are non-dilated. Extrahepatic bile duct caliber measures 6.1 mm. Normal is 6-7 mm or less in diameter, or 10 mm or less post-cholecystectomy. Pancreas: Visualized portions of the pancreas are sonographically normal. Spleen: Spleen is enlarged measuring 14.0 cm Spleen is homogeneous in echotexture. Kidneys: Kidneys are normal in size and echotexture. Right kidney measures 13.3 cm long; left kidney measures 12.9 cm long. No hydronephrosis or nephrolithiasis. No solid masses. Left renal cyst is noted. Aorta: Visualized aorta is normal in caliber at less than 3 cm. Iliacs: Proximal common iliac arteries are normal in caliber at less than 2.5 cm. IVC: Intrahepatic inferior vena cava is patent. Miscellaneous: No free abdominal fluid. IMPRESSION: 1. Cholelithiasis without evidence of cholecystitis. 2. Sonographic splenomegaly. Please correlate with clinical data. 3. Left renal cyst. Dictated by: Tracey Meier MD, PhD on 05/17/2016 at 18:47 Approved by: Tracey Meier MD, PhD on 05/17/2016 at 18:50 Assessment & Plan Patient is a 50 year old male with hx of diabetes on insulin, portal gastropathy , HTN, diverticulosis, hereditary hemochromatosis, Hep C treated with Harvoni, and colon polyps who presents with nausea and vomiting with hematemesis and abdominal pain. Ulcerative esophagitis - EGD today showed L.[place]. Class D ulcerative esophagitis, encompassing 100% of the circumference of the esophagus. Likely the cause of his hematemesis. His Hb today is normal at 13.8, but trending down, likely secondary to fluids. - Carafate 1g QID for 2 weeks - Protonix 40 mg BID - Clear liquid diet - Trend H&H, transfuse as necessary. Abdominal pain, acute. - Pt presents with central abdominal pain and epigastric pain on palpation. US on 12/21/15 showed cholelithiasis without evidence for cholecystitis was also seen. Given the history he provides and the severity of his pain, esophagitis is not likely the only cause. Differential also includes pancreatitis, cholecystitis, and choledocholithiasis. However, amylase/lipase were normal, bilirubin and alk phos were normal, and the pancreas, gallbladder, and bile ducts appeared normal on ultrasound. Hepatic mass is also possible but not seen on repeat ultrasound. - Monitor CMP - Recommend aggressive fluid resuscitation - Ordered CT abd/pelvis with/without contrast Dehydration, acute. Improving. - Continue IV hydration History of possible liver mass. - Abdominal ultrasound on 12/21/15 showed a region of increased echogenicity within the posterior right hepatic lobel; possible periportal fibrosis vs possible mass. If the repeat US is negative, we will consider proceeding with abdominal MRI. No mass apparently seen on repeat US today. - Ordered CT abd/pelvis with/without contrast History of hereditary hemochromatosis. - Followed by Dr. Horne. Given his history of hemochromatosis and Hep C (now in remission), he is at risk for hepatocellular carcinoma. Given his risk, we will have to monitor this possible liver mass closely. VTE Mechanical Devices: Intermittant Pneumatic CD Attending Statement patient seen and examined agree with resident physician note plan as outlined in his note no further hematemesis He is still complaining of epigastric pain post prandially, CT to further evaluate Ramo Maxwell May 18, 2016 13:38 Go Covington MD May 20, 2016 12:35
--- NOTE | 2016-05-18 16:29 | PCM.PNMED ---
Subjective Date of Service May 18, 2016 Subjective Patient was seen and examined today. The patient currently complains of midepigastric abdominal pain but currently denies any nausea vomiting or diarrhea. Exam Vital Signs Vital Sign - Last Date Time Temp Pulse Resp B/P Pulse Ox O2 Delivery O2 Flow Rate FiO2 05/18/16 14:07 36.8 86 19 151/84 96 Room Air 05/17/16 17:00 2 Intake and Output 05/17/16 05/17/16 05/18/16 Cumulative From/Thru 15:00 23:00 07:00 05/17/16 11:48 - 05/18/16 06:06 Intake Total 1500 ml 200 ml 2282 ml 3982 ml Balance 1500 ml 200 ml 2282 ml 3982 ml IV Total 1500 ml 200 ml 2282 ml 3982 ml Exam Physical Exam: GEN: Patient was awake, alert, responding appropriately to questions HEENT: PERRLA, EOMI, Neck soft supple, trachea midline, nomocephalic/atraumatic CV: +S1/S2, RRR, no murmurs auscultated Respiratory: CTAB, no wheezes, rales, rhonchi GI: +bowel sounds x4, soft, compressible, tenderness to palpation in the upper quadrants and especially in the midepigastric region, umbilical bruising noted most likely secondary to insulin injections EXT: no c/c/e Neuro: CN II-XII grossly intact Psych: mood and affect were appropriate IVs and Medications Medications Reviewed: Medications were reviewed in detail Medications Current Medications Hydromorphone HCl 1 mg 1 mg Q15MIN PRN IVPUSH Last administered on 05/17/16 15: 41; Admin Dose 1 MG; Start 05/17/16 at 15:05 Sodium Chloride 1,000 ml @ 200 mls/hr Q5H IV Last administered on 05/18/16 10: 20; Admin Dose 200 MLS/HR; Start 05/17/16 at 16:55 Pantoprazole 40 mg BIDAC PO Last administered on 05/18/16 08:03; Admin Dose 40 MG; Start 05/18/16 at 07:30 Sucralfate 1,000 mg DAILY PO; Start 05/18/16 at 08:30; Stop 05/18/16 at 08:30; Status DC Sucralfate 1,000 mg ACHS PO Last administered on 05/18/16 12:03; Admin Dose 1, 000 MG; Start 05/17/16 at 22:00 Insulin Human Lispro Nutritional Dose to be given pr... [facility] SUBQ Last administered on 05/18/16 12:08; Admin Dose 1 UNIT; Start 05/17/16 at 22:00 Ondansetron HCl 4 mg Q4H PRN IVPUSH Last administered on 05/18/16 12:05; Admin Dose 4 MG; Start 05/18/16 at 06:45 Morphine Sulfate 1-2 mg Q4H PRN IVPUSH Last administered on 05/18/16 11:34; Admin Dose 1 MG; Start 05/18/16 at 11:20 Lab and Diagnostics Result Diagram: 05/18/1661305/18/16613 Additional Diagnostics PROCEDURE: Esophagogastroduodenoscopy. INDICATION: Hematemesis. Patient's ASA classification, Mallampati score and medications as per Dr. Jose Rafael Henderson' anesthesia report. INSTRUMENT USED: GIF H 180 J. PROCEDURE DETAILS: After informed consent was obtained, the patient was brought into the GI suite, where he was placed on oxygen via nasal cannula and monitored with continuous pulse oximeter, telemetry, and blood pressure monitoring. A time-out was performed and then he was placed in a left lateral decubitus position and medications were administered for sedation. A bite block was placed. The standard EGD scope was inserted through the bite block and advanced under direct visualization to the second portion of the duodenum without difficulty. FINDINGS: 1. There was evidence of old blood noted in the examined portions of the duodenum that we were able to clear with irrigation and suctioning. 2. Normal-appearing pylorus. In the antrum, body and fundus of the stomach, there was evidence of old blood in the form of coffee grounds which we were able to clear with suction irrigation. No fresh blood was seen in the stomach or duodenum. 3. The GE junction was at approximately 40 cm. From 40 cm extending up to 30 cm proximally, the mucosa was ulcerated, friable, appearance was consistent with ulcerative esophagitis. The proximal to 30 cm mucosa appeared unremarkable. 4. No esophageal or gastric varices were seen. 5. Portal gastropathy was appreciated in the antrum and gastric body of the stomach. IMPRESSION: 1. LA class B ulcerative esophagitis. 2. Portal gastropathy. RECOMMENDATIONS: 1. Sucralfate 1 g q.i.d. Continue PPI b.i.d. Recommend abdominal imaging to evaluate the patient's complaint of abdominal pain and check amylase and lipase. Would recommend discontinuing PPI drip. 2. A clear liquid diet. COMPLICATIONS: None. ESTIMATED BLOOD LOSS: 0. Go Covington MD 05/17/16 1631 PROCEDURE: US ABDOMEN ([id number]) INDICATIONS: Abdominal pain, hx gallstones and poss liver mass TECHNIQUE: Real-time scanning was performed of the abdominal and retroperitoneal organs, with image documentation. COMPARISON: [facility] Ultrasound, US, US ABDOMEN, 05/10/2015, 8: 11. FINDINGS: Liver: Liver is normal in size and homogeneous in echotexture. Gallbladder: The multiple mobile gallstones are identified. No gallbladder wall thickening. No pericholecystic fluid. No sonographic Tol[place] sign. Biliary ducts: Intrahepatic bile ducts are non-dilated. Extrahepatic bile duct caliber measures 6.1 mm. Normal is 6-7 mm or less in diameter, or 10 mm or less post-cholecystectomy. Pancreas: Visualized portions of the pancreas are sonographically normal. Spleen: Spleen is enlarged measuring 14.0 cm Spleen is homogeneous in echotexture. Kidneys: Kidneys are normal in size and echotexture. Right kidney measures 13.3 cm long; left kidney measures 12.9 cm long. No hydronephrosis or nephrolithiasis. No solid masses. Left renal cyst is noted. Aorta: Visualized aorta is normal in caliber at less than 3 cm. Iliacs: Proximal common iliac arteries are normal in caliber at less than 2.5 cm. IVC: Intrahepatic inferior vena cava is patent. Miscellaneous: No free abdominal fluid. IMPRESSION: 1. Cholelithiasis without evidence of cholecystitis. 2. Sonographic splenomegaly. Please correlate with clinical data. 3. Left renal cyst. Dictated by: Tracey Meier MD, PhD on 05/17/2016 at 18:47 Approved by: Tracey Meier MD, PhD on 05/17/2016 at 18:50 Assessment & Plan Patient is a 50 year old male with hx of diabetes on insulin, portal gastropathy , HTN, diverticulosis, hereditary hemochromatosis, Hep C treated with Harvoni, and colon polyps who presents with nausea and vomiting with hematemesis and abdominal pain. Ulcerative esophagitis - EGD today showed L.A. Class D ulcerative esophagitis, encompassing 100% of the circumference of the esophagus. Likely the cause of his hematemesis. His Hb today is normal at 13.8, but trending down, likely secondary to fluids. - Carafate 1g QID for 2 weeks - Protonix 40 mg BID - Clear liquid diet - Trend H&H, transfuse as necessary. Abdominal pain most likely secondary to ulcerative esophagitis on repeat EGD, no varices, but persistent portal gastropathy. lipase/amylase WNL, abd US showed GB stones, no signs of cholecystitis or pancreatitis. -Continue aggressive fluid resuscitation as recommended by GI -Follow up abdominal CT and pelvis with and without contrast -GI following and would appreciate their recommendations -Pain control -We will continue to monitor Dehydration -Improving continue IV hydration Insulin-dependent diabetes -Lantus 25 units daily at bedtime -Sliding scale -Accu-Cheks before meals and at bedtime Hypertension -Restart home medications for blood pressure Hyperlipidemia -Restart home medications chronic, stable Hep C - s/p Harvoni therapy, LFT stable Chronic back pain, percocet prn Depression, Anxiety, continue anti-depressant History of hereditary hemochromatosis currently followed by Dr. Horne. Patient is at high risk for hepatocellular carcinoma due to the history of hemachromatosis, hepatitis C (now in remission), with a questionable liver mass present Disposition: Patient currently still complaining of abdominal pain. We are progressing the patient's diet as tolerated. Patient will have a CT of the abdomen and pelvis with and without contrast and we will see what the results are back. There is a concern that the patient may have hepatocellular carcinoma as there was a previous ultrasound done showing a liver mass but has not been worked up. The patient will have an abdominal CT scan to confirm the presence of any type of liver mass. At this time we will continue to manage the patient's pain and appreciate any recommendations from GI. VTE Mechanical Devices: Intermittant Pneumatic CD Time spent Greater than 35 minutes Sue Kimbrough DO May 18, 2016 16:29
[2016-05-18] MEDS: Lisinopril 40 Tablet PO SCH (17:44)
--- NOTE | 2016-05-18 19:57 | DRSVH ---
PROCEDURE: CT ABDOMEN W&WO CONTRAST, PELVIS WITH CONTRAST INDICATIONS: Possible liver mass, abdominal pain TECHNIQUE: After the administration of oral contrast, 5 mm thick sections acquired from the diaphrag ms to the iliac crests. After the administration of intravenous contrast, 5 mm thick sections acquir ed from the diaphragms to the symphysis. 5 mm thick coronal and sagittal reformats were acquired. F or radiation dose reduction, the following was used: automated exposure control, adjustment of mA an d/or kV according to patient size. COMPARISON: [facility], CT, ABD/PELVIS W/CON (PNL), 11/26/2013, 10:01. [facility] Ultrasound, US, US ABD DOPPLER LTD, 12/21/2015, 8:14. [facility], US, US ABDOMEN, 05/17/2016, 17:46. FINDINGS: Image quality: Excellent. ABDOMEN: Lung bases: Bibasilar scarring/atelectasis . Heart size is normal. Solid organs: Cirrhosis of the liver is present. No suspicious arterial enhancement. No focal lesion is seen. A definite correlate to the ultrasound appearance from prior study dated 12/21/15. Gallbladder sludge and small 1-2 mm gallstones are present. No definite gallbladder wall thickening or perichole cystic inflammation. Biliary tree and pancreas negative. Spleen unremarkable. 1.2 cm left adrenal nod ule which is grossly unchanged since 11/16/13. Kidneys grossly unremarkable. No hydronephrosis. Bowel and peritoneum: Stomach, small and large bowel loops are normal in caliber and wall thickness. No free fluid or air. Colonic diverticulosis incidentally noted. Nodes and vessels: No retroperitoneal or mesenteric adenopathy by size criteria. Aorta and inferior vena are normal in caliber. Miscellaneous: No ventral hernias. PELVIS: Genitourinary: Bladder wall thickness is normal. Miscellaneous: No inguinal hernias or adenopathy. Bones: No suspicious bony lesions. No vertebral body compression fractures. IMPRESSION: Cirrhosis of the liver. No focal hepatic lesion identified or suspicious enhancement. Gallbladder sludge and small gallstones. No definite evidence of acute cholecystitis Additional chronic and incidental findings as above Dictated by: Pk Napoles M.D. on 05/18/2016 at 19:41 Approved by: Pk Napoles M.D. on 05/18/2016 at 19:56
[2016-05-18] MEDS: Insulin GLARgine 100 Unit/mL Syringe SUBQ SCH (21:35)
--- NOTE | 2016-05-18 23:00 | NUR ---
Pain Pt complained of abdominal and back pain. His back pain has been ongoing for years. (See flow sheet for pain rating) Given 2mg IV morphine Pt states he had immediate relief and is able to sleep Care ongoing.
[2016-05-19 00:46] VITALS: BP 123/80; PULSE 64; RESP 18; O2SAT 94
[2016-05-19 05:36] VITALS: BP 143/85; PULSE 67; RESP 18; O2SAT 93
[2016-05-19 07:08] LABS: Mean Corpuscular Hemoglobin 31.9 pg (27.0-35.0); Mean Corpuscular Volume 87.9 fL (81-100)
[2016-05-19] MEDS: Pantoprazole 40 mg ER24 Tablet PO SCH ×2 (07:32→17:23)
[2016-05-19] MEDS: Sucralfate 1,000 mg Tablet PO SCH ×4 (07:32→22:06)
[2016-05-19 08:00] VITALS: PULSE 74
[2016-05-19] MEDS: Insulin LISPRO 300 Unit/3 mL Inj SUBQ SCH ×4 (08:17→20:20)
[2016-05-19] MEDS: Lisinopril 40 Tablet PO SCH (09:14)
--- NOTE | 2016-05-19 09:21 | NUR ---
Social Work: Initial Assessment Data: Pt is a 50 y/o male admitted for upper GI bleed. Pt's PCP is Dr Echols. Pt's insurance is [employer]. EMR reviewed. TAPE RECORDING MACHINE OPERATOR met with pt at bedside, role explained. Pt states that he lives in [facility] [place] where he uses no DME in a single story home. Pt states that he has no history of SNF or HH, no LTC or VA benefits. Pt reports no DPOA, and declined information for this. No further d/c planning needs anticipated at this time. TAPE RECORDING MACHINE OPERATOR will continue to follow if needs arise. Assessment: Pt who is independent at baseline. Plan: Pt will d/c home via POV when medically stable. No further d/c planning needs anticipated at this time. TAPE RECORDING MACHINE OPERATOR will continue to follow if needs arise. ADDISON Ramirez Addendum: 05/19/16 at 0923 by IAM MALCOLM Amended: Links added.
[2016-05-19] MEDS ORDERED: Potassium Chloride Inj 20 MEQ in Dextrose 5% 250 ML IV ONE (09:40)
--- NOTE | 2016-05-19 11:19 | PCM.PNMED ---
Subjective Date of Service May 19, 2016 Subjective Patient states he feels much better today; his nausea his minimal, he has not vomited in 2 days, and his abdominal pain is much improved. He does reports some ongoing heartburn but also improved. Otherwise no other complaints. Exam Vital Signs Vital Sign - Last Date Time Temp Pulse Resp B/P Pulse Ox O2 Delivery O2 Flow Rate FiO2 05/19/16 05:36 36.6 67 18 143/85 93 Room Air 05/17/16 17:00 2 Intake and Output 05/18/16 05/18/16 05/19/16 Cumulative From/Thru 15:00 23:00 07:00 05/17/16 11:48 - 05/19/16 05:50 Intake Total 150 ml 3330 ml 962 ml 8424 ml Output Total 850 ml 2050 ml 2900 ml Balance -700 ml 1280 ml 962 ml 5524 ml Intake Oral 150 ml 2000 ml 2150 ml IV Total 1330 ml 962 ml 6274 ml Output Urine Total 850 ml 2050 ml 2900 ml # Bowel Movements 0 0 Exam General: Alert, Oriented X3, Cooperative, No acute distress Eyes: PERRLA, EOMI. Anicteric sclerae. Chest & Lungs: Clear to auscultation bilaterally with no crackles, wheezes, or rhonchi. Cardiovascular: Regular Rate/Rhythm, Normal S1, Normal S2, No Murmurs/Rubs/ Gallops Abdomen: Mild epigastric tenderness to palpation, with no tenderness in the 4 quadrants, Non-distended, No masses, Normoactive bowel tones Musculoskeletal: Normal Range of Motion Skin: Scattered macular rash across lower chest. Extremities: No cyanosis/clubbing/edema bilaterally Neurological: Grossly Neurologically Intact, Normal Speech Lab and Diagnostics Result Diagram: 05/19/1662705/19/16627 Additional Diagnostics PROCEDURE: Esophagogastroduodenoscopy. INDICATION: Hematemesis. Patient's ASA classification, Mallampati score and medications as per Dr. Jose Rafael Henderson' anesthesia report. INSTRUMENT USED: GIF H 180 J. PROCEDURE DETAILS: After informed consent was obtained, the patient was brought into the GI suite, where he was placed on oxygen via nasal cannula and monitored with continuous pulse oximeter, telemetry, and blood pressure monitoring. A time-out was performed and then he was placed in a left lateral decubitus position and medications were administered for sedation. A bite block was placed. The standard EGD scope was inserted through the bite block and advanced under direct visualization to the second portion of the duodenum without difficulty. FINDINGS: 1. There was evidence of old blood noted in the examined portions of the duodenum that we were able to clear with irrigation and suctioning. 2. Normal-appearing pylorus. In the antrum, body and fundus of the stomach, there was evidence of old blood in the form of coffee grounds which we were able to clear with suction irrigation. No fresh blood was seen in the stomach or duodenum. 3. The GE junction was at approximately 40 cm. From 40 cm extending up to 30 cm proximally, the mucosa was ulcerated, friable, appearance was consistent with ulcerative esophagitis. The proximal to 30 cm mucosa appeared unremarkable. 4. No esophageal or gastric varices were seen. 5. Portal gastropathy was appreciated in the antrum and gastric body of the stomach. IMPRESSION: 1. LA class B ulcerative esophagitis. 2. Portal gastropathy. RECOMMENDATIONS: 1. Sucralfate 1 g q.i.d. Continue PPI b.i.d. Recommend abdominal imaging to evaluate the patient's complaint of abdominal pain and check amylase and lipase. Would recommend discontinuing PPI drip. 2. A clear liquid diet. COMPLICATIONS: None. ESTIMATED BLOOD LOSS: 0. Go Covington MD 05/17/16 1631 PROCEDURE: US ABDOMEN ([id number]) INDICATIONS: Abdominal pain, hx gallstones and poss liver mass TECHNIQUE: Real-time scanning was performed of the abdominal and retroperitoneal organs, with image documentation. COMPARISON: [facility] Ultrasound, US, US ABDOMEN, 05/10/2015, 8: 11. FINDINGS: Liver: Liver is normal in size and homogeneous in echotexture. Gallbladder: The multiple mobile gallstones are identified. No gallbladder wall thickening. No pericholecystic fluid. No sonographic [place] sign. Biliary ducts: Intrahepatic bile ducts are non-dilated. Extrahepatic bile duct caliber measures 6.1 mm. Normal is 6-7 mm or less in diameter, or 10 mm or less post-cholecystectomy. Pancreas: Visualized portions of the pancreas are sonographically normal. Spleen: Spleen is enlarged measuring 14.0 cm Spleen is homogeneous in echotexture. Kidneys: Kidneys are normal in size and echotexture. Right kidney measures 13.3 cm long; left kidney measures 12.9 cm long. No hydronephrosis or nephrolithiasis. No solid masses. Left renal cyst is noted. Aorta: Visualized aorta is normal in caliber at less than 3 cm. Iliacs: Proximal common iliac arteries are normal in caliber at less than 2.5 cm. IVC: Intrahepatic inferior vena cava is patent. Miscellaneous: No free abdominal fluid. IMPRESSION: 1. Cholelithiasis without evidence of cholecystitis. 2. Sonographic splenomegaly. Please correlate with clinical data. 3. Left renal cyst. Dictated by: Tracey Meier MD, PhD on 05/17/2016 at 18:47 Approved by: Tracey Meier MD, PhD on 05/17/2016 at 18:50 Assessment & Plan Patient is a 50 year old male with hx of diabetes on insulin, portal gastropathy , HTN, diverticulosis, hereditary hemochromatosis, Hep C treated with Harvoni, and colon polyps who presents with nausea and vomiting with hematemesis and abdominal pain. Ulcerative esophagitis - EGD today showed L.A. Class D ulcerative esophagitis, encompassing 100% of the circumference of the esophagus. Likely the cause of his hematemesis. His Hb appears to be stable. He will likely be appropriate for discharge soon if his symptoms continue to improve. He reports constipation, which may worsen his reflux. - Carafate 1g QID for 2 weeks - Protonix 40 mg BID - Will begin advancing diet as tolerated. - Trend H&H, transfuse as necessary. - Recommend all meals sitting in chair - Miralax for constipation, to continue outpatient. Abdominal pain, acute. - Pt presents with central abdominal pain and epigastric pain on palpation. Likely secondary to ulcerative esophagitis. Pancreatitis unlikely due to normal lipase and normal pancreas on CT. Cholecystitis/choledocholithiasis unlikely given negative imaging. - Monitor CMP - Recommend aggressive fluid resuscitation Dehydration, acute. Improving. - Continue IV hydration History of possible liver mass. - Abdominal ultrasound on 12/21/15 showed a region of increased echogenicity within the posterior right hepatic lobel; possible periportal fibrosis vs possible mass. If the repeat US is negative, we will consider proceeding with abdominal MRI. No mass apparently seen on repeat US, and CT abd with/without contrast showed no focal hepatic lesion identified or suspicious enhancement. This does not appear to be hepatocellular carcinoma. History of hereditary hemochromatosis. - Followed by Dr. Horne. VTE Mechanical Devices: Intermittant Pneumatic CD Attending Statement pt seen and examined with resident physician agree with his note he is still having post prandial chest and abdominal pain, If symptoms don't improve with continued PPI and carafate, may need to consider gall bladder etiology for pain. He may need HIDA scan to further evaluate. His USG and CT scan show cholelithiasis without findings to suggest cholecystitis and no other findings to explain pain. Ramo Maxwell May 19, 2016 11:19 Go Covington MD May 20, 2016 12:39
[2016-05-19 13:16] VITALS: BP 151/84; PULSE 81; RESP 18; O2SAT 97
--- NOTE | 2016-05-19 15:55 | PCM.PNMED ---
Subjective Date of Service May 19, 2016 Subjective Patient was examined at bedside today. Patient denies any chest pain, shortness of breath, nausea, vomiting, diarrhea. Patient still complains of abdominal pain and states that he also has pain with eating. Patient does not report any nausea or vomiting Exam Vital Signs Vital Sign - Last Date Time Temp Pulse Resp B/P Pulse Ox O2 Delivery O2 Flow Rate FiO2 05/19/16 13:16 36.7 81 18 151/84 97 Room Air 05/17/16 17:00 2 Intake and Output 05/18/16 05/18/16 05/19/16 Cumulative From/Thru 15:00 23:00 07:00 05/17/16 11:48 - 05/19/16 05:50 Intake Total 150 ml 3330 ml 962 ml 8424 ml Output Total 850 ml 2050 ml 2900 ml Balance -700 ml 1280 ml 962 ml 5524 ml Intake Oral 150 ml 2000 ml 2150 ml IV Total 1330 ml 962 ml 6274 ml Output Urine Total 850 ml 2050 ml 2900 ml # Bowel Movements 0 0 Exam Physical Exam: GEN: Patient was awake, alert, responding appropriately to questions HEENT: PERRLA, EOMI, Neck soft supple, trachea midline, nomocephalic/atraumatic CV: +S1/S2, RRR, no murmurs auscultated Respiratory: CTAB, no wheezes, rales, rhonchi GI: +bowel sounds x4, soft, compressible, mild right upper quadrant pain and midepigastric pain improved from yesterday EXT: no c/c/e Neuro: CN II-XII grossly intact Psych: mood and affect were appropriate IVs and Medications Medications Reviewed: Medications were reviewed in detail Medications Current Medications Sodium Chloride 1,000 ml @ 80 mls/hr [id number] IV Last administered on 05/18/16 21:37; Admin Dose 80 MLS/HR; Start 05/17/16 at 16:55; Stop 05/19/16 at 15:07; Status DC Pantoprazole 40 mg BIDAC PO Last administered on 05/19/16 07:32; Admin Dose 40 MG; Start 05/18/16 at 07:30 Sucralfate 1,000 mg DAILY PO; Start 05/18/16 at 08:30; Stop 05/18/16 at 08:30; Status DC Sucralfate 1,000 mg ACHS PO Last administered on 05/19/16 11:41; Admin Dose 1, 000 MG; Start 05/17/16 at 22:00 Insulin Human Lispro Nutritional Dose to be given pr... [facility] SUBQ Last administered on 05/19/16 11:41; Admin Dose 1 UNIT; Start 05/17/16 at 22:00 Ondansetron HCl 4 mg Q4H PRN IVPUSH Last administered on 05/18/16 17:57; Admin Dose 4 MG; Start 05/18/16 at 06:45 Morphine Sulfate 1-2 mg Q4H PRN IVPUSH Last administered on 05/19/16 13:31; Admin Dose 2 MG; Start 05/18/16 at 11:20 Atorvastatin Calcium 10 mg DAILY PO Last administered on 05/19/16 09:14; Admin Dose 10 MG; Start 05/19/16 at 08:30 Citalopram Hydrobromide 20 mg DAILY PO Last administered on 05/19/16 09:14; Admin Dose 20 MG; Start 05/18/16 at 16:25 Lisinopril 40 mg DAILY PO Last administered on 05/19/16 09:14; Admin Dose 40 MG ; Start 05/18/16 at 16:25 Amlodipine Besylate 10 mg DAILY PO Last administered on 05/19/16 09:14; Admin Dose 10 MG; Start 05/18/16 at 16:25 Hydrochlorothiazide 50 mg DAILY PO Last administered on 05/19/16 09:14; Admin Dose 50 MG; Start 05/19/16 at 08:30 Insulin Glargine 25 unit HS SUBQ Last administered on 05/18/16 21:35; Admin Dose 25 UNIT; Start 05/18/16 at 21:00 Lab and Diagnostics Result Diagram: 05/19/1662705/19/1628 X-Rays, CTs and MRIs PROCEDURE: CT ABDOMEN W&WO CONTRAST, PELVIS WITH CONTRAST INDICATIONS: Possible liver mass, abdominal pain TECHNIQUE: After the administration of oral contrast, 5 mm thick sections acquired from the diaphragms to the iliac crests. After the administration of intravenous contrast, 5 mm thick sections acquired from the diaphragms to the symphysis. 5 mm thick coronal and sagittal reformats were acquired. For radiation dose reduction, the following was used: automated exposure control, adjustment of mA and/or kV according to patient size. COMPARISON: [facility], CT, ABD/PELVIS W/CON (PNL), 11/26/2013, 10: 01. [facility], US, US ABD DOPPLER LTD, 12/21/2015, 8: 14. [facility], US, US ABDOMEN, 05/17/2016, 17:46. FINDINGS: Image quality: Excellent. ABDOMEN: Lung bases: Bibasilar scarring/atelectasis . Heart size is normal. Solid organs: Cirrhosis of the liver is present. No suspicious arterial enhancement. No focal lesion is seen. A definite correlate to the ultrasound appearance from prior study dated 12/21/15. Gallbladder sludge and small 1-2 mm gallstones are present. No definite gallbladder wall thickening or pericholecystic inflammation. Biliary tree and pancreas negative. Spleen unremarkable. 1.2 cm left adrenal nodule which is grossly unchanged since . Kidneys grossly unremarkable. No hydronephrosis. Bowel and peritoneum: Stomach, small and large bowel loops are normal in caliber and wall thickness. No free fluid or air. Colonic diverticulosis incidentally noted. Nodes and vessels: No retroperitoneal or mesenteric adenopathy by size criteria. Aorta and inferior vena are normal in caliber. Miscellaneous: No ventral hernias. PELVIS: Genitourinary: Bladder wall thickness is normal. Miscellaneous: No inguinal hernias or adenopathy. Bones: No suspicious bony lesions. No vertebral body compression fractures. IMPRESSION: Cirrhosis of the liver. No focal hepatic lesion identified or suspicious enhancement. Gallbladder sludge and small gallstones. No definite evidence of acute cholecystitis Additional chronic and incidental findings as above Dictated by: Pk Napoles M.D. on 05/18/2016 at 19:41 Approved by: Pk Napoles M.D. on 05/18/2016 at 19:56 PROCEDURE: US ABDOMEN ([id number]) INDICATIONS: Abdominal pain, hx gallstones and poss liver mass TECHNIQUE: Real-time scanning was performed of the abdominal and retroperitoneal organs, with image documentation. COMPARISON: [facility] Ultrasound, US, US ABDOMEN, 05/10/2015, 8: 11. FINDINGS: Liver: Liver is normal in size and homogeneous in echotexture. Gallbladder: The multiple mobile gallstones are identified. No gallbladder wall thickening. No pericholecystic fluid. No sonographic Toledo sign. Biliary ducts: Intrahepatic bile ducts are non-dilated. Extrahepatic bile duct caliber measures 6.1 mm. Normal is 6-7 mm or less in diameter, or 10 mm or less post-cholecystectomy. Pancreas: Visualized portions of the pancreas are sonographically normal. Spleen: Spleen is enlarged measuring 14.0 cm Spleen is homogeneous in echotexture. Kidneys: Kidneys are normal in size and echotexture. Right kidney measures 13.3 cm long; left kidney measures 12.9 cm long. No hydronephrosis or nephrolithiasis. No solid masses. Left renal cyst is noted. Aorta: Visualized aorta is normal in caliber at less than 3 cm. Iliacs: Proximal common iliac arteries are normal in caliber at less than 2.5 cm. IVC: Intrahepatic inferior vena cava is patent. Miscellaneous: No free abdominal fluid. IMPRESSION: 1. Cholelithiasis without evidence of cholecystitis. 2. Sonographic splenomegaly. Please correlate with clinical data. 3. Left renal cyst. Dictated by: Tracey Meier MD, PhD on 05/17/2016 at 18:47 Approved by: Tracey Meier MD, PhD on 05/17/2016 at 18:50 Additional Diagnostics PROCEDURE: Esophagogastroduodenoscopy. INDICATION: Hematemesis. Patient's ASA classification, Mallampati score and medications as per Dr. Jose Rafael Henderson' anesthesia report. INSTRUMENT USED: GIF H 180 J. PROCEDURE DETAILS: After informed consent was obtained, the patient was brought into the GI suite, where he was placed on oxygen via nasal cannula and monitored with continuous pulse oximeter, telemetry, and blood pressure monitoring. A time-out was performed and then he was placed in a left lateral decubitus position and medications were administered for sedation. A bite block was placed. The standard EGD scope was inserted through the bite block and advanced under direct visualization to the second portion of the duodenum without difficulty. FINDINGS: 1. There was evidence of old blood noted in the examined portions of the duodenum that we were able to clear with irrigation and suctioning. 2. Normal-appearing pylorus. In the antrum, body and fundus of the stomach, there was evidence of old blood in the form of coffee grounds which we were able to clear with suction irrigation. No fresh blood was seen in the stomach or duodenum. 3. The GE junction was at approximately 40 cm. From 40 cm extending up to 30 cm proximally, the mucosa was ulcerated, friable, appearance was consistent with ulcerative esophagitis. The proximal to 30 cm mucosa appeared unremarkable. 4. No esophageal or gastric varices were seen. 5. Portal gastropathy was appreciated in the antrum and gastric body of the stomach. IMPRESSION: 1. LA class B ulcerative esophagitis. 2. Portal gastropathy. RECOMMENDATIONS: 1. Sucralfate 1 g q.i.d. Continue PPI b.i.d. Recommend abdominal imaging to evaluate the patient's complaint of abdominal pain and check amylase and lipase. Would recommend discontinuing PPI drip. 2. A clear liquid diet. COMPLICATIONS: None. ESTIMATED BLOOD LOSS: 0. Go Covington MD 05/17/16 1631 PROCEDURE: US ABDOMEN ([id number]) INDICATIONS: Abdominal pain, hx gallstones and poss liver mass TECHNIQUE: Real-time scanning was performed of the abdominal and retroperitoneal organs, with image documentation. COMPARISON: [facility] Ultrasound, US, US ABDOMEN, 05/10/2015, 8: 11. FINDINGS: Liver: Liver is normal in size and homogeneous in echotexture. Gallbladder: The multiple mobile gallstones are identified. No gallbladder wall thickening. No pericholecystic fluid. No sonographic Toledo sign. Biliary ducts: Intrahepatic bile ducts are non-dilated. Extrahepatic bile duct caliber measures 6.1 mm. Normal is 6-7 mm or less in diameter, or 10 mm or less post-cholecystectomy. Pancreas: Visualized portions of the pancreas are sonographically normal. Spleen: Spleen is enlarged measuring 14.0 cm Spleen is homogeneous in echotexture. Kidneys: Kidneys are normal in size and echotexture. Right kidney measures 13.3 cm long; left kidney measures 12.9 cm long. No hydronephrosis or nephrolithiasis. No solid masses. Left renal cyst is noted. Aorta: Visualized aorta is normal in caliber at less than 3 cm. Iliacs: Proximal common iliac arteries are normal in caliber at less than 2.5 cm. IVC: Intrahepatic inferior vena cava is patent. Miscellaneous: No free abdominal fluid. IMPRESSION: 1. Cholelithiasis without evidence of cholecystitis. 2. Sonographic splenomegaly. Please correlate with clinical data. 3. Left renal cyst. Dictated by: Tracey Meier MD, PhD on 05/17/2016 at 18:47 Approved by: Tracey Meier MD, PhD on 05/17/2016 at 18:50 Assessment & Plan Patient is a 50 year old male with hx of diabetes on insulin, portal gastropathy , HTN, diverticulosis, hereditary hemochromatosis, Hep C treated with Harvoni, and colon polyps who presents with nausea and vomiting with hematemesis and abdominal pain. Ulcerative esophagitis - EGD today showed L.[place]. Class D ulcerative esophagitis, encompassing 100% of the circumference of the esophagus. Likely the cause of his hematemesis. His Hb today is normal at 13.8, but trending down, likely secondary to fluids. - Carafate 1g QID for 2 weeks - Protonix 40 mg BID - Clear liquid diet advance diet as tolerated - Trend H&H, transfuse as necessary. Abdominal pain most likely secondary to ulcerative esophagitis on repeat EGD, no varices, but persistent portal gastropathy. lipase/amylase WNL, abd US showed GB stones, no signs of cholecystitis or pancreatitis. -Continue aggressive fluid resuscitation as recommended by GI -Follow up abdominal CT and pelvis with and without contrast -GI following and would appreciate their recommendations -Pain control -We will continue to monitor Leukocytosis (resolving) -Patient's white blood cell count on admission was 15.5 currently 8.7 back within normal limits Dehydration - improved will discontinue IV hydration Hypokalemia - Repeat potassium with 20 mEq IV today -We will reassess in the morning Insulin-dependent diabetes -Lantus 25 units daily at bedtime -Sliding scale -Accu-Cheks before meals and at bedtime Hypertension -Restart home medications for blood pressure Hyperlipidemia -Restart home medications chronic, stable Hep C - s/p Harvoni therapy, LFT stable Chronic back pain, percocet prn Depression, Anxiety, continue anti-depressant History of hereditary hemochromatosis currently followed by Dr. Horne. Patient is at high risk for hepatocellular carcinoma due to the history of hemachromatosis, hepatitis C (now in remission), with a questionable liver mass present Disposition: Patient still complains of abdominal pain however the pain has improved. The patient still however is only on a clear liquid diet and not able to tolerate this at this time. We will continue to advance the patient's diet. Once the patient is able to tolerate his diet patient should be stable to be discharged home. 1.2 cm nodule was found in the adrenal kidneys however this is been stable since November 2013. [employer] Devices: Intermittant Pneumatic CD Time spent Greater than 35 minutes Sue Kimbrough DO May 19, 2016 15:55
--- NOTE | 2016-05-19 16:04 | NUR ---
took over care at 3pm
[2016-05-19 17:45] VITALS: BP 139/93; PULSE 105; RESP 18; O2SAT 95
--- NOTE | 2016-05-19 18:22 | NUR ---
Pain Pt c/o of abd pain 01/23, gave morphine IVP, with good relief 2/10 pain. Pt does have pain when eating, but states it helps when followed with ice chips. Additionally, it has helped to have pt up in chair for meals.
[2016-05-19] MEDS ORDERED: Polyethylene Glycol (PEG) 17 Gm Powder PO ONE (18:25)
[2016-05-19] MEDS: Ondansetron 2 mg/mL 2 mL Inj IVPUSH PRN (20:07)
[2016-05-19] MEDS: Insulin GLARgine 100 Unit/mL Syringe SUBQ SCH (20:20)
[2016-05-19 20:42] VITALS: BP 133/83; PULSE 78; RESP 18; O2SAT 95
[2016-05-20 00:17] VITALS: BP 138/86; PULSE 60; RESP 18; O2SAT 95
[2016-05-20 05:14] VITALS: BP 116/74; PULSE 62; RESP 18; O2SAT 94
[2016-05-20 06:17] LABS: Mean Corpuscular Hemoglobin 31.5 pg (27.0-35.0); Mean Corpuscular Volume 86.6 fL (81-100)
--- NOTE | 2016-05-20 06:30 | NUR ---
GI Pt c/o upper abdominal lemus 4-11/23, radiated to back, Morphine 2mg IV givenx3 per pt requests, pain down to 0 at night,then rises up this am. Mild nausea intermittently, no vomitus, Zofran given, symptoms improved. Small amount of back watery stool yesterday per pt report, not visualized by the creative writer, no BM or active GI bleed overnight. VSS, afebrile.
[2016-05-20] MEDS ORDERED: KCl 40 mEq/100 mL (CENTRAL) 40 MEQ in IV Premix 1 EACH IV ONE (08:25)
[2016-05-20] MEDS: Pantoprazole 40 mg ER24 Tablet PO SCH ×2 (08:26→16:45)
[2016-05-20] MEDS: Sucralfate 1,000 mg Tablet PO SCH ×4 (08:26→21:33)
[2016-05-20 08:27] LABS: APPEARANCE,URINE CLEAR (CLEAR,HAZY); COLOR,URINE YELLOW (YELLOW)
[2016-05-20] MEDS: Lisinopril 40 Tablet PO SCH (08:28)
[2016-05-20 08:29] LABS: OCCULT BLOOD,URINE NEGATIVE (NEGATIVE)
[2016-05-20] MEDS: Insulin LISPRO 300 Unit/3 mL Inj SUBQ SCH ×4 (08:29→21:38)
[2016-05-20] MEDS ORDERED: Potassium Chloride Inj 40 MEQ in 0.9% Sodium Chloride 500 ML IV ONE (08:30)
[2016-05-20] MEDS: Ondansetron 2 mg/mL 2 mL Inj IVPUSH PRN ×2 (08:30→17:00)
--- NOTE | 2016-05-20 10:21 | NUR ---
Nausea/Pain: Patient complains of nausea and feeling of stomach "burning" after attempting to have breakfast. Carafate, Protonix, and Zofran administered. On reassessment, patient states nausea relieved. Patient complained of abdominal pain 8/10 on pain scale. Addendum: 05/20/16 at 1042 by LYNDSAY MANCERA RN Morphine 2mg administered for 8/10 abdominal pain. Addendum: 05/20/16 at 1221 by LYNDSAY MANCERA RN On reassessment, patient states he has 0/10 pain.
--- NOTE | 2016-05-20 12:58 | NUR ---
NUTRITION ASSESSMENT: ASSESS:50 YO male admitted with intractable nausea, frequent emesis, abdominal pain, related to ulcerative esophagitis on repeat EGD, no varices, but persistent portal gastropathy. Lipase/amylase WNL, abd US showed GB stones, no signs of cholecystitis or pancreatitis.upper GI bleed. The patient reports weight loss. Admission records indicate a weight loss of 7.2 kg x 6 weeks = 6.94% = moderate malnutrition. 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 DIET:Full liquid. PO intake consistently 50% trays. LABS: Reviewed. K+ 3.3, Cr 0.64, Glu 185, A1c pending. MEDICATIONS: Reviewed. Colace, insulin. NUTRITION FOCUSED PHYSICAL ASSESSMENT: GI symptoms / stool: No BM reported.Lopez: 19.0 Skin Integrity: No issues reported. ANTHROPOMETRICS: Current Wt: 96.6 kgBMI: 29.0 kg/m2.Admit weight: 95.91 kg. IBW: 78.18 (124% IBW) ESTIMATED NEEDS (MODERATE MALNUTRITION, LIVER DISEASE): Calories: 2415 - 2898 kcal (25 - 30 kcal / kg BW) Protein: 116 - 145 g protein (1.2 - 1.5 g / kg BW) NUTRITION DIAGNOSIS: 1) Moderate malnutrition related to acute on chronic nausea / vomiting, abdominal pain, as evidenced by 6.94% weight loss x 6 weeks. 2)Increased nutrient needs related to liver disease. INTERVENTION: 1) Will add supplements to trays and snacks between meals to encourage PO intake. MONITOR/EVALUATE: Diet / supplement tolerance, PO intake, labs, GI/nutrition status. Follow up per moderate nutrition risk guidelines.
[2016-05-20] MEDS ORDERED: PEG/Electrolytes 4,000 mL Solution PO ONE (14:15)
--- NOTE | 2016-05-20 15:08 | NUR ---
Social Work: Readiness for d/c Data: Pt is on day 3 of hospitalization. EMR reviewed, pt discussed in rounds. MD states pt likely to d/c either today or tomorrow. No d/c planning needs anticipated. DOOR CUTTER will continue to follow if needs arise. Assessment: Pt who is independent at baseline. Plan: Pt will d/c home via POV when medically stable, likely today or tomorrow. No d/c planning needs anticipated. DOOR CUTTER will continue to follow if needs arise. ADDISON Ramirez
--- NOTE | 2016-05-20 16:08 | NUR ---
pain / anxiety Pt states increased pain 6-8/10 with ingestion of most fluids and hot foods. Pt desires to go home today - eager to watch Superbowl. Pt is apologetic and embarrassed that he needs all this care. Pt reassured and calming techniques provided. Call light in reach.
--- NOTE | 2016-05-20 16:10 | PCM.PNMED ---
Subjective Date of Service May 20, 2016 Subjective reports he had nausea following PO states he is still having postprandial epigastric pain and retrosternal burning He has not had a BM since sunday he takes narcotics at home as needed for chronic lower back and leg pain Exam Vital Signs Vital Sign - Last Date Time Temp Pulse Resp B/P Pulse Ox O2 Delivery O2 Flow Rate FiO2 05/20/16 05:14 36.8 62 18 116/74 94 Room Air 05/17/16 17:00 2 Intake and Output 05/19/16 05/19/16 05/20/16 Cumulative From/Thru 14:59 22:59 06:59 05/17/16 11:48 - 05/19/16 20:25 Intake Total 430 ml 1030 ml 9884 ml Output Total 750 ml 1100 ml 4750 ml Balance -320 ml -70 ml 5134 ml Intake Oral 430 ml 1030 ml 3610 ml IV Total 6274 ml Output Urine Total 750 ml 1100 ml 4750 ml # Bowel Movements 0 Exam GEN- appears comfortable, talking with his friend on arrival to bedside, received pain meds he states earlier HEENT- no pallor or icterus RESP- Clear bilaterally CVS-RRR abdomen-soft, epigastric tenderness, no rebound or guarding ext- trace edema Lab and Diagnostics Result Diagram: 05/20/16 0525 05/20/16 0525 X-Rays, CTs and MRIs PROCEDURE: CT ABDOMEN W&WO CONTRAST, PELVIS WITH CONTRAST INDICATIONS: Possible liver mass, abdominal pain TECHNIQUE: After the administration of oral contrast, 5 mm thick sections acquired from the diaphragms to the iliac crests. After the administration of intravenous contrast, 5 mm thick sections acquired from the diaphragms to the symphysis. 5 mm thick coronal and sagittal reformats were acquired. For radiation dose reduction, the following was used: automated exposure control, adjustment of mA and/or kV according to patient size. COMPARISON: [facility], CT, ABD/PELVIS W/CON (PNL), 11/26/2013, 10: 01. [facility] Ultrasound, US, US ABD DOPPLER LTD, 12/21/2015, 8: 14. [facility], US, US ABDOMEN, 05/17/2016, 17:46. FINDINGS: Image quality: Excellent. ABDOMEN: Lung bases: Bibasilar scarring/atelectasis . Heart size is normal. Solid organs: Cirrhosis of the liver is present. No suspicious arterial enhancement. No focal lesion is seen. A definite correlate to the ultrasound appearance from prior study dated 12/21/15. Gallbladder sludge and small 1-2 mm gallstones are present. No definite gallbladder wall thickening or pericholecystic inflammation. Biliary tree and pancreas negative. Spleen unremarkable. 1.2 cm left adrenal nodule which is grossly unchanged since . Kidneys grossly unremarkable. No hydronephrosis. Bowel and peritoneum: Stomach, small and large bowel loops are normal in caliber and wall thickness. No free fluid or air. Colonic diverticulosis incidentally noted. Nodes and vessels: No retroperitoneal or mesenteric adenopathy by size criteria. Aorta and inferior vena are normal in caliber. Miscellaneous: No ventral hernias. PELVIS: Genitourinary: Bladder wall thickness is normal. Miscellaneous: No inguinal hernias or adenopathy. Bones: No suspicious bony lesions. No vertebral body compression fractures. IMPRESSION: Cirrhosis of the liver. No focal hepatic lesion identified or suspicious enhancement. Gallbladder sludge and small gallstones. No definite evidence of acute cholecystitis Additional chronic and incidental findings as above Dictated by: Pk Napoles M.D. on 05/18/2016 at 19:41 Approved by: Pk Napoles M.D. on 05/18/2016 at 19:56 PROCEDURE: US ABDOMEN ([id number]) INDICATIONS: Abdominal pain, hx gallstones and poss liver mass TECHNIQUE: Real-time scanning was performed of the abdominal and retroperitoneal organs, with image documentation. COMPARISON: [facility] Ultrasound, US, US ABDOMEN, 05/10/2015, 8: 11. FINDINGS: Liver: Liver is normal in size and homogeneous in echotexture. Gallbladder: The multiple mobile gallstones are identified. No gallbladder wall thickening. No pericholecystic fluid. No sonographic Toledo sign. Biliary ducts: Intrahepatic bile ducts are non-dilated. Extrahepatic bile duct caliber measures 6.1 mm. Normal is 6-7 mm or less in diameter, or 10 mm or less post-cholecystectomy. Pancreas: Visualized portions of the pancreas are sonographically normal. Spleen: Spleen is enlarged measuring 14.0 cm Spleen is homogeneous in echotexture. Kidneys: Kidneys are normal in size and echotexture. Right kidney measures 13.3 cm long; left kidney measures 12.9 cm long. No hydronephrosis or nephrolithiasis. No solid masses. Left renal cyst is noted. Aorta: Visualized aorta is normal in caliber at less than 3 cm. Iliacs: Proximal common iliac arteries are normal in caliber at less than 2.5 cm. IVC: Intrahepatic inferior vena cava is patent. Miscellaneous: No free abdominal fluid. IMPRESSION: 1. Cholelithiasis without evidence of cholecystitis. 2. Sonographic splenomegaly. Please correlate with clinical data. 3. Left renal cyst. Dictated by: Tracey Meier MD, PhD on 05/17/2016 at 18:47 Approved by: Tracey Meier MD, PhD on 05/17/2016 at 18:50 Additional Diagnostics PROCEDURE: Esophagogastroduodenoscopy. INDICATION: Hematemesis. Patient's ASA classification, Mallampati score and medications as per Dr. Jose Rafael Henderson' anesthesia report. INSTRUMENT USED: GIF H 180 J. PROCEDURE DETAILS: After informed consent was obtained, the patient was brought into the GI suite, where he was placed on oxygen via nasal cannula and monitored with continuous pulse oximeter, telemetry, and blood pressure monitoring. A time-out was performed and then he was placed in a left lateral decubitus position and medications were administered for sedation. A bite block was placed. The standard EGD scope was inserted through the bite block and advanced under direct visualization to the second portion of the duodenum without difficulty. FINDINGS: 1. There was evidence of old blood noted in the examined portions of the duodenum that we were able to clear with irrigation and suctioning. 2. Normal-appearing pylorus. In the antrum, body and fundus of the stomach, there was evidence of old blood in the form of coffee grounds which we were able to clear with suction irrigation. No fresh blood was seen in the stomach or duodenum. 3. The GE junction was at approximately 40 cm. From 40 cm extending up to 30 cm proximally, the mucosa was ulcerated, friable, appearance was consistent with ulcerative esophagitis. The proximal to 30 cm mucosa appeared unremarkable. 4. No esophageal or gastric varices were seen. 5. Portal gastropathy was appreciated in the antrum and gastric body of the stomach. IMPRESSION: 1. LA class B ulcerative esophagitis. 2. Portal gastropathy. RECOMMENDATIONS: 1. Sucralfate 1 g q.i.d. Continue PPI b.i.d. Recommend abdominal imaging to evaluate the patient's complaint of abdominal pain and check amylase and lipase. Would recommend discontinuing PPI drip. 2. A clear liquid diet. COMPLICATIONS: None. ESTIMATED BLOOD LOSS: 0. Go Covington MD 05/17/16 1631 PROCEDURE: US ABDOMEN ([id number]) INDICATIONS: Abdominal pain, hx gallstones and poss liver mass TECHNIQUE: Real-time scanning was performed of the abdominal and retroperitoneal organs, with image documentation. COMPARISON: [facility] Ultrasound, US, US ABDOMEN, 05/10/2015, 8: 11. FINDINGS: Liver: Liver is normal in size and homogeneous in echotexture. Gallbladder: The multiple mobile gallstones are identified. No gallbladder wall thickening. No pericholecystic fluid. No sonographic Toledo sign. Biliary ducts: Intrahepatic bile ducts are non-dilated. Extrahepatic bile duct caliber measures 6.1 mm. Normal is 6-7 mm or less in diameter, or 10 mm or less post-cholecystectomy. Pancreas: Visualized portions of the pancreas are sonographically normal. Spleen: Spleen is enlarged measuring 14.0 cm Spleen is homogeneous in echotexture. Kidneys: Kidneys are normal in size and echotexture. Right kidney measures 13.3 cm long; left kidney measures 12.9 cm long. No hydronephrosis or nephrolithiasis. No solid masses. Left renal cyst is noted. Aorta: Visualized aorta is normal in caliber at less than 3 cm. Iliacs: Proximal common iliac arteries are normal in caliber at less than 2.5 cm. IVC: Intrahepatic inferior vena cava is patent. Miscellaneous: No free abdominal fluid. IMPRESSION: 1. Cholelithiasis without evidence of cholecystitis. 2. Sonographic splenomegaly. Please correlate with clinical data. 3. Left renal cyst. Dictated by: Tracey Meier MD, PhD on 05/17/2016 at 18:47 Approved by: Tracey Meier MD, PhD on 05/17/2016 at 18:50 Assessment & Plan Ulcerative esophagitis - EGD today showed L.A. Class D ulcerative esophagitis, encompassing 100% of the circumference of the esophagus. Likely the cause of his hematemesis. His Hb appears to be stable. He will likely be appropriate for discharge soon if his symptoms continue to improve. He reports constipation, which may worsen his reflux. - Carafate 1g QID for 2 weeks - Protonix 40 mg BID - clear liquid diet today - Trend H&H, transfuse as necessary. - Recommend all meals sitting in chair - Abdominal pain, acute. - Pt presents with central abdominal pain and epigastric pain on palpation. -trial of colon prep as he reports constipation -if no improvement following colon purge, may need to consider HIDA scan to evaluate the gallbladder History of hereditary hemochromatosis. - Followed by Dr. Horne. VTE Mechanical Devices: Intermittant Pneumatic CD Go Covington MD May 20, 2016 16:10
--- NOTE | 2016-05-20 16:26 | PCM.PNMED ---
Subjective Date of Service May 20, 2016 Subjective Patient was examined at bedside today. Patient denies any chest pain, shortness of breath, nausea, vomiting, diarrhea. Patient complains of midepigastric pain, esophageal burning, and constipation. The patient states that every time he eats he gets an esophageal burning however the Carafate and the Protonix does seem to help decrease this. The patient also states that he has been constipated for the last 6 days. Exam Vital Signs Vital Sign - Last Date Time Temp Pulse Resp B/P Pulse Ox O2 Delivery O2 Flow Rate FiO2 05/20/16 05:14 36.8 62 18 116/74 94 Room Air 05/17/16 17:00 2 Intake and Output 05/19/16 05/19/16 05/20/16 Cumulative From/Thru 15:00 23:00 07:00 05/17/16 11:48 - 05/19/16 20:25 Intake Total 430 ml 1030 ml 9884 ml Output Total 750 ml 1100 ml 4750 ml Balance -320 ml -70 ml 5134 ml Intake Oral 430 ml 1030 ml 3610 ml IV Total 6274 ml Output Urine Total 750 ml 1100 ml 4750 ml # Bowel Movements 0 Exam Physical Exam: GEN: Patient was awake, alert, responding appropriately to questions HEENT: PERRLA, EOMI, Neck soft supple, trachea midline, nomocephalic/atraumatic CV: +S1/S2, RRR, no murmurs auscultated Respiratory: CTAB, no wheezes, rales, rhonchi GI: +bowel sounds x4, soft, compressible, midepigastric tenderness to palpation , left lower quadrant tenderness with deep palpation secondary to constipation. EXT: no c/c/e Neuro: CN II-XII grossly intact Psych: mood and affect were appropriate IVs and Medications Medications Reviewed: Medications were reviewed in detail Medications Current Medications Atorvastatin Calcium 10 mg DAILY PO Last administered on 05/20/16 08:28; Admin Dose 10 MG; Start 05/19/16 at 08:30 Citalopram Hydrobromide 20 mg DAILY PO Last administered on 05/20/16 08:26; Admin Dose 20 MG; Start 05/18/16 at 16:25 Lisinopril 40 mg DAILY PO Last administered on 05/20/16 08:28; Admin Dose 40 MG ; Start 05/18/16 at 16:25 Amlodipine Besylate 10 mg DAILY PO Last administered on 05/20/16 08:28; Admin Dose 10 MG; Start 05/18/16 at 16:25 Hydrochlorothiazide 50 mg DAILY PO Last administered on 05/20/16 08:27; Admin Dose 50 MG; Start 05/19/16 at 08:30 Insulin Glargine 25 unit HS SUBQ Last administered on 05/19/16 20:20; Admin Dose 25 UNIT; Start 05/18/16 at 21:00 Docusate Sodium 100 mg BID PRN PO Last administered on 05/20/16 11:06; Admin Dose 100 MG; Start 05/20/16 at 08:50 Lab and Diagnostics Result Diagram: 05/20/1652405/20/16 05 X-Rays, CTs and MRIs PROCEDURE: CT ABDOMEN W&WO CONTRAST, PELVIS WITH CONTRAST INDICATIONS: Possible liver mass, abdominal pain TECHNIQUE: After the administration of oral contrast, 5 mm thick sections acquired from the diaphragms to the iliac crests. After the administration of intravenous contrast, 5 mm thick sections acquired from the diaphragms to the symphysis. 5 mm thick coronal and sagittal reformats were acquired. For radiation dose reduction, the following was used: automated exposure control, adjustment of mA and/or kV according to patient size. COMPARISON: [facility], CT, ABD/PELVIS W/CON (PNL), 11/26/2013, 10: 01. [facility] Ultrasound, US, US ABD DOPPLER LTD, 12/21/2015, 8: 14. [facility], US, US ABDOMEN, 05/17/2016, 17:46. FINDINGS: Image quality: Excellent. ABDOMEN: Lung bases: Bibasilar scarring/atelectasis . Heart size is normal. Solid organs: Cirrhosis of the liver is present. No suspicious arterial enhancement. No focal lesion is seen. A definite correlate to the ultrasound appearance from prior study dated 12/21/15. Gallbladder sludge and small 1-2 mm gallstones are present. No definite gallbladder wall thickening or pericholecystic inflammation. Biliary tree and pancreas negative. Spleen unremarkable. 1.2 cm left adrenal nodule which is grossly unchanged since . Kidneys grossly unremarkable. No hydronephrosis. Bowel and peritoneum: Stomach, small and large bowel loops are normal in caliber and wall thickness. No free fluid or air. Colonic diverticulosis incidentally noted. Nodes and vessels: No retroperitoneal or mesenteric adenopathy by size criteria. Aorta and inferior vena are normal in caliber. Miscellaneous: No ventral hernias. PELVIS: Genitourinary: Bladder wall thickness is normal. Miscellaneous: No inguinal hernias or adenopathy. Bones: No suspicious bony lesions. No vertebral body compression fractures. IMPRESSION: Cirrhosis of the liver. No focal hepatic lesion identified or suspicious enhancement. Gallbladder sludge and small gallstones. No definite evidence of acute cholecystitis Additional chronic and incidental findings as above Dictated by: Pk Napoles M.D. on 05/18/2016 at 19:41 Approved by: Pk Napoles M.D. on 05/18/2016 at 19:56 PROCEDURE: US ABDOMEN ([id number]) INDICATIONS: Abdominal pain, hx gallstones and poss liver mass TECHNIQUE: Real-time scanning was performed of the abdominal and retroperitoneal organs, with image documentation. COMPARISON: [facility] Ultrasound, US, US ABDOMEN, 05/10/2015, 8: 11. FINDINGS: Liver: Liver is normal in size and homogeneous in echotexture. Gallbladder: The multiple mobile gallstones are identified. No gallbladder wall thickening. No pericholecystic fluid. No sonographic Toledo sign. Biliary ducts: Intrahepatic bile ducts are non-dilated. Extrahepatic bile duct caliber measures 6.1 mm. Normal is 6-7 mm or less in diameter, or 10 mm or less post-cholecystectomy. Pancreas: Visualized portions of the pancreas are sonographically normal. Spleen: Spleen is enlarged measuring 14.0 cm Spleen is homogeneous in echotexture. Kidneys: Kidneys are normal in size and echotexture. Right kidney measures 13.3 cm long; left kidney measures 12.9 cm long. No hydronephrosis or nephrolithiasis. No solid masses. Left renal cyst is noted. Aorta: Visualized aorta is normal in caliber at less than 3 cm. Iliacs: Proximal common iliac arteries are normal in caliber at less than 2.5 cm. IVC: Intrahepatic inferior vena cava is patent. Miscellaneous: No free abdominal fluid. IMPRESSION: 1. Cholelithiasis without evidence of cholecystitis. 2. Sonographic splenomegaly. Please correlate with clinical data. 3. Left renal cyst. Dictated by: Tracey Meier MD, PhD on 05/17/2016 at 18:47 Approved by: Tracey Meier MD, PhD on 05/17/2016 at 18:50 Additional Diagnostics PROCEDURE: Esophagogastroduodenoscopy. INDICATION: Hematemesis. Patient's ASA classification, Mallampati score and medications as per Dr. Jose Rafael Henderson' anesthesia report. INSTRUMENT USED: GIF H 180 J. PROCEDURE DETAILS: After informed consent was obtained, the patient was brought into the GI suite, where he was placed on oxygen via nasal cannula and monitored with continuous pulse oximeter, telemetry, and blood pressure monitoring. A time-out was performed and then he was placed in a left lateral decubitus position and medications were administered for sedation. A bite block was placed. The standard EGD scope was inserted through the bite block and advanced under direct visualization to the second portion of the duodenum without difficulty. FINDINGS: 1. There was evidence of old blood noted in the examined portions of the duodenum that we were able to clear with irrigation and suctioning. 2. Normal-appearing pylorus. In the antrum, body and fundus of the stomach, there was evidence of old blood in the form of coffee grounds which we were able to clear with suction irrigation. No fresh blood was seen in the stomach or duodenum. 3. The GE junction was at approximately 40 cm. From 40 cm extending up to 30 cm proximally, the mucosa was ulcerated, friable, appearance was consistent with ulcerative esophagitis. The proximal to 30 cm mucosa appeared unremarkable. 4. No esophageal or gastric varices were seen. 5. Portal gastropathy was appreciated in the antrum and gastric body of the stomach. IMPRESSION: 1. LA class B ulcerative esophagitis. 2. Portal gastropathy. RECOMMENDATIONS: 1. Sucralfate 1 g q.i.d. Continue PPI b.i.d. Recommend abdominal imaging to evaluate the patient's complaint of abdominal pain and check amylase and lipase. Would recommend discontinuing PPI drip. 2. A clear liquid diet. COMPLICATIONS: None. ESTIMATED BLOOD LOSS: 0. Go Covington MD 05/17/16 2581 PROCEDURE: US ABDOMEN ([id number]) INDICATIONS: Abdominal pain, hx gallstones and poss liver mass TECHNIQUE: Real-time scanning was performed of the abdominal and retroperitoneal organs, with image documentation. COMPARISON: [facility] Ultrasound, US, US ABDOMEN, 05/10/2015, 8: 11. FINDINGS: Liver: Liver is normal in size and homogeneous in echotexture. Gallbladder: The multiple mobile gallstones are identified. No gallbladder wall thickening. No pericholecystic fluid. No sonographic Toledo sign. Biliary ducts: Intrahepatic bile ducts are non-dilated. Extrahepatic bile duct caliber measures 6.1 mm. Normal is 6-7 mm or less in diameter, or 10 mm or less post-cholecystectomy. Pancreas: Visualized portions of the pancreas are sonographically normal. Spleen: Spleen is enlarged measuring 14.0 cm Spleen is homogeneous in echotexture. Kidneys: Kidneys are normal in size and echotexture. Right kidney measures 13.3 cm long; left kidney measures 12.9 cm long. No hydronephrosis or nephrolithiasis. No solid masses. Left renal cyst is noted. Aorta: Visualized aorta is normal in caliber at less than 3 cm. Iliacs: Proximal common iliac arteries are normal in caliber at less than 2.5 cm. IVC: Intrahepatic inferior vena cava is patent. Miscellaneous: No free abdominal fluid. IMPRESSION: 1. Cholelithiasis without evidence of cholecystitis. 2. Sonographic splenomegaly. Please correlate with clinical data. 3. Left renal cyst. Dictated by: Tracey Meier MD, PhD on 05/17/2016 at 18:47 Approved by: Tracey Meier MD, PhD on 05/17/2016 at 18:50 Assessment & Plan Patient is a 50 year old male with hx of diabetes on insulin, portal gastropathy , HTN, diverticulosis, hereditary hemochromatosis, Hep C treated with Harvoni, and colon polyps who presents with nausea and vomiting with hematemesis and abdominal pain. Ulcerative esophagitis - EGD today showed L.A. Class D ulcerative esophagitis, encompassing 100% of the circumference of the esophagus. Likely the cause of his hematemesis. His Hb today is normal at 13.8, but trending down, likely secondary to fluids. - Carafate 1g QID for 2 weeks - Protonix 40 mg BID - Clear liquid diet advance diet as tolerated - Trend H&H, transfuse as necessary. Abdominal pain most likely secondary to ulcerative esophagitis on repeat EGD, no varices, but persistent portal gastropathy. lipase/amylase WNL, abd US showed GB stones, no signs of cholecystitis or pancreatitis. -Discontinue IV fluids -Follow up abdominal CT and pelvis with and without contrast -GI following and would appreciate their recommendations -Pain control -We will continue to monitor Constipation -GoLYTELY -If patient does not have a bowel movement since the patient may need to be manually evacuated with a colonoscopy by GI -GI is currently considering a HIDA scan if the relief of constipation does not decrease the patient's pain Leukocytosis (resolving) -Patient's white blood cell count on admission was 15.5 currently 8.7 back within normal limits Dehydration - improved will discontinue IV hydration Hypokalemia - Repeat potassium with 20 mEq IV today -We will reassess in the morning Insulin-dependent diabetes -Lantus 25 units daily at bedtime -Sliding scale -Accu-Cheks before meals and at bedtime Hypertension -Restart home medications for blood pressure Hyperlipidemia -Restart home medications chronic, stable Hep C - s/p Harvoni therapy, LFT stable Chronic back pain, percocet prn Depression, Anxiety, continue anti-depressant History of hereditary hemochromatosis currently followed by Dr. Horne. Patient is at high risk for hepatocellular carcinoma due to the history of hemachromatosis, hepatitis C (now in remission), with a questionable liver mass present Disposition: The patient still complains of abdominal pain however it has improved. The patient is not able to tolerate a diet at this time. This may be secondary to constipation. The patient is going to do a trial of GoLYTELY in order to relieve the constipation. If this is not successful the patient may be manually disimpacted via GI. The patient presented to the emergency room with the complaint of severe abdominal pain and hematemesis. An EGD was performed showing L.A. Class D ulcerative esophagitis, encompassing 100% of the circumference of the esophagus. Likely the cause of his hematemesis. The patient did also have a CT scan which showed and a 1.2 cm nodule was found in the adrenal kidneys however this has been stable since November 2013. At this point we are waiting for the progression of the patient's diet once he is able to tolerate a full diet then he should be able to be discharged home. We will continue to follow with GI and their recommendations. [employer] Mechanical Devices: Intermittant Pneumatic CD Sue Kimbrough DO May 20, 2016 16:26
[2016-05-20 16:32] VITALS: BP 132/81; PULSE 69; RESP 20; O2SAT 95
[2016-05-20] MEDS: Insulin GLARgine 100 Unit/mL Syringe SUBQ SCH (21:37)
[2016-05-20 22:02] VITALS: BP 142/92; PULSE 76; RESP 20; O2SAT 96
[2016-05-20] MEDS: oxyCODONE-Acetamin 5-325 mg Tablet PO PRN (22:10)
--- NOTE | 2016-05-20 22:40 | NUR ---
Home meds/Wallet Home meds found in the med drawl outside pt room, 7 bottles in the bag. Verified with pt that are his home meds, pt wants to keep the meds in the drawl rather than sent to pharmacy because he thinks he will discharge home tomorrow. Rn talked with charge nurse: ok to keep the home meds in the pt's med drawl. Pt is very anxious when he saw his home meds without seeing his wallet with it. He states he signed the paper work in ER when he came in and was told that his home meds and brown wallet will be stored in the safe in pharmacy. 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 KIRA Neri contacted ER that pt wallet stored in the safe at ER. Wallet is given back to pt per pt requests and verified by pt that nothing is lost. Pt keeps his wallet at bedside table. Paper work signed by pt.
--- NOTE | 2016-05-20 23:02 | NUR ---
Pt unable to tolerate Colyte Pt unable to tolerate Colyte, he appears upset and states the Colyte "causes me so much pain in my esophagus", pain 10/10 "like fire". He drank about 1000ml of Colyte, "I am not going to take more!". He had about 1000ml liquid brown stool so far. Morphine given, pain improved but shortly coming back, Percocet given, ice chips and popsicle for ease the pain. Pain comes down, tolerable.
[2016-05-21] MEDS: oxyCODONE-Acetamin 5-325 mg Tablet PO PRN ×3 (03:16→18:17)
[2016-05-21 05:27] VITALS: BP 138/78; PULSE 66; RESP 20; O2SAT 95
[2016-05-21 06:44] LABS: Mean Corpuscular Hemoglobin 31.6 pg (27.0-35.0)
[2016-05-21] MEDS: Pantoprazole 40 mg ER24 Tablet PO SCH (08:01)
[2016-05-21] MEDS: Lisinopril 40 Tablet PO SCH (08:01)
[2016-05-21] MEDS: Sucralfate 1,000 mg Tablet PO SCH ×4 (08:01→20:53)
[2016-05-21] MEDS: Insulin LISPRO 300 Unit/3 mL Inj SUBQ SCH ×4 (08:03→20:59)
--- NOTE | 2016-05-21 14:52 | PCM.PNMED ---
Subjective Date of Service May 21, 2016 Subjective epigastric pain improved following golyetly still with retrosternal burning with warm liquids(chicken broth) however able to tolerate cool liquids states he is hungry and wants to eat he reports he has not required any IV narcotics today and is taking po percocet which he takes at home for chronic lower back pain Exam Vital Signs Vital Sign - Last Date Time Temp Pulse Resp B/P Pulse Ox O2 Delivery O2 Flow Rate FiO2 05/21/16 05:27 36.4 66 20 138/78 95 Room Air 05/17/16 17:00 2 Intake and Output 05/20/16 05/20/16 05/21/16 Cumulative From/Thru 15:00 23:00 07:00 05/17/16 11:48 - 05/20/16 20:35 Intake Total 1200 ml 557 ml 18684 ml Output Total 650 ml 1250 ml 6650 ml Balance 550 ml -693 ml 4991 ml Intake Oral 1200 ml 557 ml 5367 ml IV Total 6274 ml Output Urine Total 650 ml 450 ml 5850 ml Stool Total 800 ml 800 ml # Voids 3 3 # Bowel Movements 0 Exam GEN- no apparent distress, oriented and appropriate HEENT- o/p clear RESP- clear CVS-RRR abdomen-no epigastric tenderness today, soft Lab and Diagnostics Result Diagram: 05/21/16 0625 05/21/16 0625 X-Rays, CTs and MRIs PROCEDURE: CT ABDOMEN W&WO CONTRAST, PELVIS WITH CONTRAST INDICATIONS: Possible liver mass, abdominal pain TECHNIQUE: After the administration of oral contrast, 5 mm thick sections acquired from the diaphragms to the iliac crests. After the administration of intravenous contrast, 5 mm thick sections acquired from the diaphragms to the symphysis. 5 mm thick coronal and sagittal reformats were acquired. For radiation dose reduction, the following was used: automated exposure control, adjustment of mA and/or kV according to patient size. COMPARISON: [facility], CT, ABD/PELVIS W/CON (PNL), 11/26/2013, 10: 01. [facility]ound, US, US ABD DOPPLER LTD, 12/21/2015, 8: 14. [facility], US, US ABDOMEN, 05/17/2016, 17:46. FINDINGS: Image quality: Excellent. ABDOMEN: Lung bases: Bibasilar scarring/atelectasis . Heart size is normal. Solid organs: Cirrhosis of the liver is present. No suspicious arterial enhancement. No focal lesion is seen. A definite correlate to the ultrasound appearance from prior study dated 12/21/15. Gallbladder sludge and small 1-2 mm gallstones are present. No definite gallbladder wall thickening or pericholecystic inflammation. Biliary tree and pancreas negative. Spleen unremarkable. 1.2 cm left adrenal nodule which is grossly unchanged since . Kidneys grossly unremarkable. No hydronephrosis. Bowel and peritoneum: Stomach, small and large bowel loops are normal in caliber and wall thickness. No free fluid or air. Colonic diverticulosis incidentally noted. Nodes and vessels: No retroperitoneal or mesenteric adenopathy by size criteria. Aorta and inferior vena are normal in caliber. Miscellaneous: No ventral hernias. PELVIS: Genitourinary: Bladder wall thickness is normal. Miscellaneous: No inguinal hernias or adenopathy. Bones: No suspicious bony lesions. No vertebral body compression fractures. IMPRESSION: Cirrhosis of the liver. No focal hepatic lesion identified or suspicious enhancement. Gallbladder sludge and small gallstones. No definite evidence of acute cholecystitis Additional chronic and incidental findings as above Dictated by: Pk Napoles M.D. on 05/18/2016 at 19:41 Approved by: Pk Napoles M.D. on 05/18/2016 at 19:56 PROCEDURE: US ABDOMEN ([id number]) INDICATIONS: Abdominal pain, hx gallstones and poss liver mass TECHNIQUE: Real-time scanning was performed of the abdominal and retroperitoneal organs, with image documentation. COMPARISON: [facility]trasound, US, US ABDOMEN, 05/10/2015, 8: 11. FINDINGS: Liver: Liver is normal in size and homogeneous in echotexture. Gallbladder: The multiple mobile gallstones are identified. No gallbladder wall thickening. No pericholecystic fluid. No sonographic Toledo sign. Biliary ducts: Intrahepatic bile ducts are non-dilated. Extrahepatic bile duct caliber measures 6.1 mm. Normal is 6-7 mm or less in diameter, or 10 mm or less post-cholecystectomy. Pancreas: Visualized portions of the pancreas are sonographically normal. Spleen: Spleen is enlarged measuring 14.0 cm Spleen is homogeneous in echotexture. Kidneys: Kidneys are normal in size and echotexture. Right kidney measures 13.3 cm long; left kidney measures 12.9 cm long. No hydronephrosis or nephrolithiasis. No solid masses. Left renal cyst is noted. Aorta: Visualized aorta is normal in caliber at less than 3 cm. Iliacs: Proximal common iliac arteries are normal in caliber at less than 2.5 cm. IVC: Intrahepatic inferior vena cava is patent. Miscellaneous: No free abdominal fluid. IMPRESSION: 1. Cholelithiasis without evidence of cholecystitis. 2. Sonographic splenomegaly. Please correlate with clinical data. 3. Left renal cyst. Dictated by: Tracey Meier MD, PhD on 05/17/2016 at 18:47 Approved by: Tracey Meier MD, PhD on 05/17/2016 at 18:50 Additional Diagnostics PROCEDURE: Esophagogastroduodenoscopy. INDICATION: Hematemesis. Patient's ASA classification, Mallampati score and medications as per Dr. Jose Rafael Henderson' anesthesia report. INSTRUMENT USED: GIF H 180 J. PROCEDURE DETAILS: After informed consent was obtained, the patient was brought into the GI suite, where he was placed on oxygen via nasal cannula and monitored with continuous pulse oximeter, telemetry, and blood pressure monitoring. A time-out was performed and then he was placed in a left lateral decubitus position and medications were administered for sedation. A bite block was placed. The standard EGD scope was inserted through the bite block and advanced under direct visualization to the second portion of the duodenum without difficulty. FINDINGS: 1. There was evidence of old blood noted in the examined portions of the duodenum that we were able to clear with irrigation and suctioning. 2. Normal-appearing pylorus. In the antrum, body and fundus of the stomach, there was evidence of old blood in the form of coffee grounds which we were able to clear with suction irrigation. No fresh blood was seen in the stomach or duodenum. 3. The GE junction was at approximately 40 cm. From 40 cm extending up to 30 cm proximally, the mucosa was ulcerated, friable, appearance was consistent with ulcerative esophagitis. The proximal to 30 cm mucosa appeared unremarkable. 4. No esophageal or gastric varices were seen. 5. Portal gastropathy was appreciated in the antrum and gastric body of the stomach. IMPRESSION: 1. LA class B ulcerative esophagitis. 2. Portal gastropathy. RECOMMENDATIONS: 1. Sucralfate 1 g q.i.d. Continue PPI b.i.d. Recommend abdominal imaging to evaluate the patient's complaint of abdominal pain and check amylase and lipase. Would recommend discontinuing PPI drip. 2. A clear liquid diet. COMPLICATIONS: None. ESTIMATED BLOOD LOSS: 0. Go Covington MD 05/17/16 1631 PROCEDURE: US ABDOMEN ([id number]) INDICATIONS: Abdominal pain, hx gallstones and poss liver mass TECHNIQUE: Real-time scanning was performed of the abdominal and retroperitoneal organs, with image documentation. COMPARISON: [facility]trasound, US, US ABDOMEN, 05/10/2015, 8: 11. FINDINGS: Liver: Liver is normal in size and homogeneous in echotexture. Gallbladder: The multiple mobile gallstones are identified. No gallbladder wall thickening. No pericholecystic fluid. No sonographic Toledo sign. Biliary ducts: Intrahepatic bile ducts are non-dilated. Extrahepatic bile duct caliber measures 6.1 mm. Normal is 6-7 mm or less in diameter, or 10 mm or less post-cholecystectomy. Pancreas: Visualized portions of the pancreas are sonographically normal. Spleen: Spleen is enlarged measuring 14.0 cm Spleen is homogeneous in echotexture. Kidneys: Kidneys are normal in size and echotexture. Right kidney measures 13.3 cm long; left kidney measures 12.9 cm long. No hydronephrosis or nephrolithiasis. No solid masses. Left renal cyst is noted. Aorta: Visualized aorta is normal in caliber at less than 3 cm. Iliacs: Proximal common iliac arteries are normal in caliber at less than 2.5 cm. IVC: Intrahepatic inferior vena cava is patent. Miscellaneous: No free abdominal fluid. IMPRESSION: 1. Cholelithiasis without evidence of cholecystitis. 2. Sonographic splenomegaly. Please correlate with clinical data. 3. Left renal cyst. Dictated by: Tracey Meier MD, PhD on 05/17/2016 at 18:47 Approved by: Tracey Meier MD, PhD on 05/17/2016 at 18:50 Assessment & Plan LA Class D Ulcerative esophagitis - Carafate 1g QID for 2 weeks - change protonix to Ranitidine 150mg PO BID secondary to rash on upper chest and back - Full liquid diet and if tolerates advance diet to soft mechanical Rash -discontinue protonix -D/W Dr Almendarez, observe overnight to make sure rash does not worsen Epigastric Abdominal pain -improved following 1liter of golytely -will advance diet, if tolerates soft mechanical diet and rash improves he could go home tomorrow Constipation -secondary to chronic narcotic use - continue Miralax daily History of Chronic Hepatitis C -successfully treated with Harvoni VTE Mechanical Devices: Intermittant Pneumatic CD Go Covington MD May 21, 2016 14:52
[2016-05-21 15:15] VITALS: BP 139/92; PULSE 78; RESP 20; O2SAT 98
--- NOTE | 2016-05-21 18:07 | PCM.PNMED ---
Subjective Date of Service May 21, 2016 Subjective reports new non-pruritic rash on the back and the groins. continued mid epigastric pain. says unable to tolerate the bowel prep due to dysphagia. has had 2 loose stools today Exam Vital Signs Vital Sign - Last Date Time Temp Pulse Resp B/P Pulse Ox O2 Delivery O2 Flow Rate FiO2 05/21/16 15:15 36.4 78 20 139/92 98 Room Air 05/17/16 17:00 2 Intake and Output 05/20/16 05/20/16 05/21/16 Cumulative From/Thru 15:00 23:00 07:00 05/17/16 11:48 - 05/20/16 20:35 Intake Total 1200 ml 557 ml 20174 ml Output Total 650 ml 1250 ml 6650 ml Balance 550 ml -693 ml 4991 ml Intake Oral 1200 ml 557 ml 5367 ml IV Total 6274 ml Output Urine Total 650 ml 450 ml 5850 ml Stool Total 800 ml 800 ml # Voids 3 3 # Bowel Movements 0 General: Alert, Cooperative, No Acute Distress Eyes: Scleral Anicteric Mouth: Mucous Membr Moist/Stickney Neck: Supple Chest & Lungs: Chest Wall Normal, Clear to auscultation & percussion Cardiovascular: Regular Rate/Rhythm Pulses: NL carotid, radial, femoral, DP, PT Abdomen: Tender (mid epigastric and abd), Non-distended, Normoactive bowel tones, Soft Extremities: No cyanosis/clubbing/edma bilat Skin: Other (fairly diffuce macular rash on the back and the groins bilat) Neurological: Grossly Neurologically Intact, Normal Speech Lymphatic: Other Lymph Nodes (no lymphadenopathy) IVs and Medications Medications Reviewed: Medications were reviewed in detail Lab and Diagnostics Result Diagram: 05/21/1662405/21/16624 X-Rays, CTs and MRIs PROCEDURE: CT ABDOMEN W&WO CONTRAST, PELVIS WITH CONTRAST INDICATIONS: Possible liver mass, abdominal pain TECHNIQUE: After the administration of oral contrast, 5 mm thick sections acquired from the diaphragms to the iliac crests. After the administration of intravenous contrast, 5 mm thick sections acquired from the diaphragms to the symphysis. 5 mm thick coronal and sagittal reformats were acquired. For radiation dose reduction, the following was used: automated exposure control, adjustment of mA and/or kV according to patient size. COMPARISON: [facility], CT, ABD/PELVIS W/CON (PNL), 11/26/2013, 10: 01. [facility] Ultrasound, US, US ABD DOPPLER LTD, 12/21/2015, 8: 14. [facility], US, US ABDOMEN, 05/17/2016, 17:46. FINDINGS: Image quality: Excellent. ABDOMEN: Lung bases: Bibasilar scarring/atelectasis . Heart size is normal. Solid organs: Cirrhosis of the liver is present. No suspicious arterial enhancement. No focal lesion is seen. A definite correlate to the ultrasound appearance from prior study dated 12/21/15. Gallbladder sludge and small 1-2 mm gallstones are present. No definite gallbladder wall thickening or pericholecystic inflammation. Biliary tree and pancreas negative. Spleen unremarkable. 1.2 cm left adrenal nodule which is grossly unchanged since . Kidneys grossly unremarkable. No hydronephrosis. Bowel and peritoneum: Stomach, small and large bowel loops are normal in caliber and wall thickness. No free fluid or air. Colonic diverticulosis incidentally noted. Nodes and vessels: No retroperitoneal or mesenteric adenopathy by size criteria. Aorta and inferior vena are normal in caliber. Miscellaneous: No ventral hernias. PELVIS: Genitourinary: Bladder wall thickness is normal. Miscellaneous: No inguinal hernias or adenopathy. Bones: No suspicious bony lesions. No vertebral body compression fractures. IMPRESSION: Cirrhosis of the liver. No focal hepatic lesion identified or suspicious enhancement. Gallbladder sludge and small gallstones. No definite evidence of acute cholecystitis Additional chronic and incidental findings as above Dictated by: Pk Napoles M.D. on 05/18/2016 at 19:41 Approved by: Pk Napoles M.D. on 05/18/2016 at 19:56 PROCEDURE: US ABDOMEN ([id number]) INDICATIONS: Abdominal pain, hx gallstones and poss liver mass TECHNIQUE: Real-time scanning was performed of the abdominal and retroperitoneal organs, with image documentation. COMPARISON: [facility] Ultrasound, US, US ABDOMEN, 05/10/2015, 8: 11. FINDINGS: Liver: Liver is normal in size and homogeneous in echotexture. Gallbladder: The multiple mobile gallstones are identified. No gallbladder wall thickening. No pericholecystic fluid. No sonographic Toledo sign. Biliary ducts: Intrahepatic bile ducts are non-dilated. Extrahepatic bile duct caliber measures 6.1 mm. Normal is 6-7 mm or less in diameter, or 10 mm or less post-cholecystectomy. Pancreas: Visualized portions of the pancreas are sonographically normal. Spleen: Spleen is enlarged measuring 14.0 cm Spleen is homogeneous in echotexture. Kidneys: Kidneys are normal in size and echotexture. Right kidney measures 13.3 cm long; left kidney measures 12.9 cm long. No hydronephrosis or nephrolithiasis. No solid masses. Left renal cyst is noted. Aorta: Visualized aorta is normal in caliber at less than 3 cm. Iliacs: Proximal common iliac arteries are normal in caliber at less than 2.5 cm. IVC: Intrahepatic inferior vena cava is patent. Miscellaneous: No free abdominal fluid. IMPRESSION: 1. Cholelithiasis without evidence of cholecystitis. 2. Sonographic splenomegaly. Please correlate with clinical data. 3. Left renal cyst. Dictated by: Tracey Meier MD, PhD on 05/17/2016 at 18:47 Approved by: Tracey Meier MD, PhD on 05/17/2016 at 18:50 Additional Diagnostics PROCEDURE: Esophagogastroduodenoscopy. INDICATION: Hematemesis. Patient's ASA classification, Mallampati score and medications as per Dr. Jose Rafael Henderson' anesthesia report. INSTRUMENT USED: GIF H 180 J. PROCEDURE DETAILS: After informed consent was obtained, the patient was brought into the GI suite, where he was placed on oxygen via nasal cannula and monitored with continuous pulse oximeter, telemetry, and blood pressure monitoring. A time-out was performed and then he was placed in a left lateral decubitus position and medications were administered for sedation. A bite block was placed. The standard EGD scope was inserted through the bite block and advanced under direct visualization to the second portion of the duodenum without difficulty. FINDINGS: 1. There was evidence of old blood noted in the examined portions of the duodenum that we were able to clear with irrigation and suctioning. 2. Normal-appearing pylorus. In the antrum, body and fundus of the stomach, there was evidence of old blood in the form of coffee grounds which we were able to clear with suction irrigation. No fresh blood was seen in the stomach or duodenum. 3. The GE junction was at approximately 40 cm. From 40 cm extending up to 30 cm proximally, the mucosa was ulcerated, friable, appearance was consistent with ulcerative esophagitis. The proximal to 30 cm mucosa appeared unremarkable. 4. No esophageal or gastric varices were seen. 5. Portal gastropathy was appreciated in the antrum and gastric body of the stomach. IMPRESSION: 1. LA class B ulcerative esophagitis. 2. Portal gastropathy. RECOMMENDATIONS: 1. Sucralfate 1 g q.i.d. Continue PPI b.i.d. Recommend abdominal imaging to evaluate the patient's complaint of abdominal pain and check amylase and lipase. Would recommend discontinuing PPI drip. 2. A clear liquid diet. COMPLICATIONS: None. ESTIMATED BLOOD LOSS: 0. Go Covington MD 05/17/16 6071 PROCEDURE: US ABDOMEN ([id number]) INDICATIONS: Abdominal pain, hx gallstones and poss liver mass TECHNIQUE: Real-time scanning was performed of the abdominal and retroperitoneal organs, with image documentation. COMPARISON: [facility]ound, US, US ABDOMEN, 05/10/2015, 8: 11. FINDINGS: Liver: Liver is normal in size and homogeneous in echotexture. Gallbladder: The multiple mobile gallstones are identified. No gallbladder wall thickening. No pericholecystic fluid. No sonographic Toledo sign. Biliary ducts: Intrahepatic bile ducts are non-dilated. Extrahepatic bile duct caliber measures 6.1 mm. Normal is 6-7 mm or less in diameter, or 10 mm or less post-cholecystectomy. Pancreas: Visualized portions of the pancreas are sonographically normal. Spleen: Spleen is enlarged measuring 14.0 cm Spleen is homogeneous in echotexture. Kidneys: Kidneys are normal in size and echotexture. Right kidney measures 13.3 cm long; left kidney measures 12.9 cm long. No hydronephrosis or nephrolithiasis. No solid masses. Left renal cyst is noted. Aorta: Visualized aorta is normal in caliber at less than 3 cm. Iliacs: Proximal common iliac arteries are normal in caliber at less than 2.5 cm. IVC: Intrahepatic inferior vena cava is patent. Miscellaneous: No free abdominal fluid. IMPRESSION: 1. Cholelithiasis without evidence of cholecystitis. 2. Sonographic splenomegaly. Please correlate with clinical data. 3. Left renal cyst. Dictated by: Tracey Meier MD, PhD on 05/17/2016 at 18:47 Approved by: Tracey Meier MD, PhD on 05/17/2016 at 18:50 Assessment & Plan 50 year old male with hx of diabetes on insulin, portal gastropathy, HTN, diverticulosis, hereditary hemochromatosis, Hep C treated with Harvoni, and colon polyps who presents with nausea and vomiting with hematemesis and abdominal pain. # Acute LA Class D Ulcerative esophagitis. poa. ongoing - appreciate GI consult. will f/u w/ recs - post Esophagogastroduodenoscopy on 05/17/16 showing: " LA class D ulcerative esophagitis. Portal gastropathy." - Carafate 1g QID for 2 weeks - change Protonix to Ranitidine 150mg PO BID secondary to rash on upper chest and back - Full liquid diet and if tolerates advance diet to soft mechanical # Abdominal pain most likely secondary to ulcerative esophagitis. poa. improving - on repeat EGD, no varices, but persistent portal gastropathy. - lipase/amylase WNL, abd US showed GB stones, no signs of cholecystitis or pancreatitis. - treatment as noted above # Acute Rash. not poa - discontinue Protonix - observe overnight to make sure rash does not worsen # Constipation. poa. improving - unable to GoLYTELY due to dysphagia - secondary to chronic narcotic use - continue Miralax daily # Acute Leukocytosis. poa. resolved # Dehydration. poa - resolved w/ IVF # Acute Hypokalemia. poa. ongoing - replete and f/u # Insulin-dependent diabetes - Lantus 25 units daily at bedtime - Sliding scale # Hypertension. stable - c/w home medications for blood pressure # Hyperlipidemia - home medications chronic, stable: # Hep C - s/p Harvoni therapy, LFT stable # Chronic back pain, - Percocet prn # Depression, Anxiety. stable. - continue anti-depressant # History of hereditary hemochromatosis currently followed by Dr. Horne. - high risk for hepatocellular carcinoma due to the history of hemochromatosis, hepatitis C (now in remission), with a questionable liver mass present Dispo: likely home tomorrow [employer] Mechanical Devices: Intermittant Pneumatic CD Hardy Scanlon May 21, 2016 18:07
[2016-05-21] MEDS ORDERED: KCl 40 mEq/D5W 500 mL 40 MEQ in IV Premix 500 EACH IV ONE (18:10)
--- NOTE | 2016-05-21 18:22 | NUR ---
pain pt advanced to soft diet and stated that he had 8/10 abd pain after eating salmon and in the position. administered 2mg IVP morphine. reassessed and pt stated that pain decreased level 4/10
--- NOTE | 2016-05-21 20:01 | NUR ---
Esophagus pain/ Rash PT found lying quietly in bed, states esophagus pain is now down to 4/10 and nausea has passed, no other complaints. On assessment it was noted that the rash is now in his groin bilaterally. PT has agreed to stay on a liquid diet tonight and then try very soft food for breakfast. Will continue to monitor pain and rash.
[2016-05-21 21:13] VITALS: BP 160/89; PULSE 86; RESP 20; O2SAT 96
[2016-05-21] MEDS: Insulin GLARgine 100 Unit/mL Syringe SUBQ SCH (21:57)
[2016-05-22] MEDS: oxyCODONE-Acetamin 5-325 mg Tablet PO PRN ×3 (00:54→22:56)
[2016-05-22 05:20] VITALS: BP 128/89; PULSE 97; RESP 20; O2SAT 97
[2016-05-22] MEDS: Lisinopril 40 Tablet PO SCH (08:20)
[2016-05-22] MEDS: Sucralfate 1,000 mg Tablet PO SCH ×4 (08:21→20:35)
[2016-05-22] MEDS: Insulin LISPRO 300 Unit/3 mL Inj SUBQ SCH ×4 (08:22→22:00)
[2016-05-22] MEDS ORDERED: KCl 40 mEq/D5W 500 mL 40 MEQ in IV Premix 500 EACH IV ONE (08:30)
[2016-05-22 10:45] VITALS: BP 147/87; PULSE 87; RESP 18; O2SAT 97
[2016-05-22] MEDS ORDERED: 0.9% Sodium Chloride 500 ML ONE (12:19)
--- NOTE | 2016-05-22 15:54 | PCM.PNMED ---
Subjective Date of Service May 22, 2016 Subjective continued mid epigastric pain. says unable to tolerate advancing diet yesterday. Exam Vital Signs Vital Sign - Last Date Time Temp Pulse Resp B/P Pulse Ox O2 Delivery O2 Flow Rate FiO2 05/22/16 10:45 36.5 87 18 147/87 97 Room Air 05/17/16 17:00 2 Intake and Output 05/21/16 05/21/16 05/22/16 Cumulative From/Thru 15:00 23:00 07:00 05/17/16 11:48 - 05/21/16 19:50 Intake Total 600 ml 1494 ml 07004 ml Output Total 700 ml 1500 ml 8850 ml Balance -100 ml -6 ml 4885 ml Intake Oral 600 ml 1494 ml 7461 ml IV Total 6274 ml Output Urine Total 500 ml 1300 ml 7650 ml Stool Total 200 ml 200 ml 1200 ml # Voids 1 4 # Bowel Movements 0 Exam General: Alert, Cooperative, No Acute Distress Eyes: Scleral Anicteric Mouth: Mucous Membr Moist/[place] Neck: Supple Chest & Lungs: Chest Wall Normal, Clear to auscultation bilat Cardiovascular: Regular Rate/Rhythm Pulses: NL carotid, radial, femoral, DP, PT Abdomen: Tender (mid epigastric and abd), Non-distended, Normoactive bowel tones, Soft Extremities: No cyanosis/clubbing/edema bilat Skin: Other (fairly diffuse macular rash on the back and the groins bilat) Neurological: Grossly Neurologically Intact, Normal Speech Lymphatic: Other Lymph Nodes (no lymphadenopathy) IVs and Medications Medications Reviewed: Medications were reviewed in detail Lab and Diagnostics Result Diagram: 05/21/16 0625 05/22/16 0700 X-Rays, CTs and MRIs PROCEDURE: CT ABDOMEN W&WO CONTRAST, PELVIS WITH CONTRAST INDICATIONS: Possible liver mass, abdominal pain TECHNIQUE: After the administration of oral contrast, 5 mm thick sections acquired from the diaphragms to the iliac crests. After the administration of intravenous contrast, 5 mm thick sections acquired from the diaphragms to the symphysis. 5 mm thick coronal and sagittal reformats were acquired. For radiation dose reduction, the following was used: automated exposure control, adjustment of mA and/or kV according to patient size. COMPARISON: [facility], CT, ABD/PELVIS W/CON (PNL), 11/26/2013, 10: 01. [facility]ound, US, US ABD DOPPLER LTD, 12/21/2015, 8: 14. [facility], US, US ABDOMEN, 05/17/2016, 17:46. FINDINGS: Image quality: Excellent. ABDOMEN: Lung bases: Bibasilar scarring/atelectasis . Heart size is normal. Solid organs: Cirrhosis of the liver is present. No suspicious arterial enhancement. No focal lesion is seen. A definite correlate to the ultrasound appearance from prior study dated 12/21/15. Gallbladder sludge and small 1-2 mm gallstones are present. No definite gallbladder wall thickening or pericholecystic inflammation. Biliary tree and pancreas negative. Spleen unremarkable. 1.2 cm left adrenal nodule which is grossly unchanged since . Kidneys grossly unremarkable. No hydronephrosis. Bowel and peritoneum: Stomach, small and large bowel loops are normal in caliber and wall thickness. No free fluid or air. Colonic diverticulosis incidentally noted. Nodes and vessels: No retroperitoneal or mesenteric adenopathy by size criteria. Aorta and inferior vena are normal in caliber. Miscellaneous: No ventral hernias. PELVIS: Genitourinary: Bladder wall thickness is normal. Miscellaneous: No inguinal hernias or adenopathy. Bones: No suspicious bony lesions. No vertebral body compression fractures. IMPRESSION: Cirrhosis of the liver. No focal hepatic lesion identified or suspicious enhancement. Gallbladder sludge and small gallstones. No definite evidence of acute cholecystitis Additional chronic and incidental findings as above Dictated by: Pk Napoles M.D. on 05/18/2016 at 19:41 Approved by: Pk Napoles M.D. on 05/18/2016 at 19:56 PROCEDURE: US ABDOMEN ([id number]) INDICATIONS: Abdominal pain, hx gallstones and poss liver mass TECHNIQUE: Real-time scanning was performed of the abdominal and retroperitoneal organs, with image documentation. COMPARISON: [facility]ound, US, US ABDOMEN, 05/10/2015, 8: 11. FINDINGS: Liver: Liver is normal in size and homogeneous in echotexture. Gallbladder: The multiple mobile gallstones are identified. No gallbladder wall thickening. No pericholecystic fluid. No sonographic Toledo sign. Biliary ducts: Intrahepatic bile ducts are non-dilated. Extrahepatic bile duct caliber measures 6.1 mm. Normal is 6-7 mm or less in diameter, or 10 mm or less post-cholecystectomy. Pancreas: Visualized portions of the pancreas are sonographically normal. Spleen: Spleen is enlarged measuring 14.0 cm Spleen is homogeneous in echotexture. Kidneys: Kidneys are normal in size and echotexture. Right kidney measures 13.3 cm long; left kidney measures 12.9 cm long. No hydronephrosis or nephrolithiasis. No solid masses. Left renal cyst is noted. Aorta: Visualized aorta is normal in caliber at less than 3 cm. Iliacs: Proximal common iliac arteries are normal in caliber at less than 2.5 cm. IVC: Intrahepatic inferior vena cava is patent. Miscellaneous: No free abdominal fluid. IMPRESSION: 1. Cholelithiasis without evidence of cholecystitis. 2. Sonographic splenomegaly. Please correlate with clinical data. 3. Left renal cyst. Dictated by: Tracey Meier MD, PhD on 05/17/2016 at 18:47 Approved by: Tracey Meier MD, PhD on 05/17/2016 at 18:50 Additional Diagnostics PROCEDURE: Esophagogastroduodenoscopy. INDICATION: Hematemesis. Patient's ASA classification, Mallampati score and medications as per Dr. Jose Rafael Henderson' anesthesia report. INSTRUMENT USED: GIF H 180 J. PROCEDURE DETAILS: After informed consent was obtained, the patient was brought into the GI suite, where he was placed on oxygen via nasal cannula and monitored with continuous pulse oximeter, telemetry, and blood pressure monitoring. A time-out was performed and then he was placed in a left lateral decubitus position and medications were administered for sedation. A bite block was placed. The standard EGD scope was inserted through the bite block and advanced under direct visualization to the second portion of the duodenum without difficulty. FINDINGS: 1. There was evidence of old blood noted in the examined portions of the duodenum that we were able to clear with irrigation and suctioning. 2. Normal-appearing pylorus. In the antrum, body and fundus of the stomach, there was evidence of old blood in the form of coffee grounds which we were able to clear with suction irrigation. No fresh blood was seen in the stomach or duodenum. 3. The GE junction was at approximately 40 cm. From 40 cm extending up to 30 cm proximally, the mucosa was ulcerated, friable, appearance was consistent with ulcerative esophagitis. The proximal to 30 cm mucosa appeared unremarkable. 4. No esophageal or gastric varices were seen. 5. Portal gastropathy was appreciated in the antrum and gastric body of the stomach. IMPRESSION: 1. LA class B ulcerative esophagitis. 2. Portal gastropathy. RECOMMENDATIONS: 1. Sucralfate 1 g q.i.d. Continue PPI b.i.d. Recommend abdominal imaging to evaluate the patient's complaint of abdominal pain and check amylase and lipase. Would recommend discontinuing PPI drip. 2. A clear liquid diet. COMPLICATIONS: None. ESTIMATED BLOOD LOSS: 0. Go Covington MD 05/17/16 1631 PROCEDURE: US ABDOMEN ([id number]) INDICATIONS: Abdominal pain, hx gallstones and poss liver mass TECHNIQUE: Real-time scanning was performed of the abdominal and retroperitoneal organs, with image documentation. COMPARISON: [facility]ound, US, US ABDOMEN, 05/10/2015, 8: 11. FINDINGS: Liver: Liver is normal in size and homogeneous in echotexture. Gallbladder: The multiple mobile gallstones are identified. No gallbladder wall thickening. No pericholecystic fluid. No sonographic Toledo sign. Biliary ducts: Intrahepatic bile ducts are non-dilated. Extrahepatic bile duct caliber measures 6.1 mm. Normal is 6-7 mm or less in diameter, or 10 mm or less post-cholecystectomy. Pancreas: Visualized portions of the pancreas are sonographically normal. Spleen: Spleen is enlarged measuring 14.0 cm Spleen is homogeneous in echotexture. Kidneys: Kidneys are normal in size and echotexture. Right kidney measures 13.3 cm long; left kidney measures 12.9 cm long. No hydronephrosis or nephrolithiasis. No solid masses. Left renal cyst is noted. Aorta: Visualized aorta is normal in caliber at less than 3 cm. Iliacs: Proximal common iliac arteries are normal in caliber at less than 2.5 cm. IVC: Intrahepatic inferior vena cava is patent. Miscellaneous: No free abdominal fluid. IMPRESSION: 1. Cholelithiasis without evidence of cholecystitis. 2. Sonographic splenomegaly. Please correlate with clinical data. 3. Left renal cyst. Dictated by: Tracey Meier MD, PhD on 05/17/2016 at 18:47 Approved by: Tracey Meier MD, PhD on 05/17/2016 at 18:50 Assessment & Plan 50 year old male with hx of diabetes on insulin, portal gastropathy, HTN, diverticulosis, hereditary hemochromatosis, Hep C treated with Harvoni, and colon polyps who presents with nausea and vomiting with hematemesis and abdominal pain. # Acute LA Class D Ulcerative esophagitis. poa. ongoing - appreciate GI consult. will f/u w/ recs - post Esophagogastroduodenoscopy on 05/17/16 showing: " LA class D ulcerative esophagitis. Portal gastropathy." - Carafate 1g QID for 2 weeks - change Protonix to Ranitidine 150mg PO BID secondary to rash on upper chest and back - Full liquid diet and if tolerates advance diet to soft mechanical - plan for HIDA scan today given ongoing abdominal pain # Abdominal pain most likely secondary to ulcerative esophagitis. poa. improving - on repeat EGD, no varices, but persistent portal gastropathy. - lipase/amylase WNL, abd US showed GB stones, no signs of cholecystitis or pancreatitis. - treatment as noted above # Acute Rash. not poa. ongoing - discontinued Protonix on 05/21/16 - continue to f/u # Constipation. poa. improving - unable to GoLYTELY due to dysphagia - secondary to chronic narcotic use - continue Miralax daily # Acute Leukocytosis. poa. resolved # Dehydration. poa - resolved w/ IVF # Acute Hypokalemia. poa. - improved - replete and f/u # Insulin-dependent diabetes - Lantus 25 units daily at bedtime - Sliding scale # Hypertension. stable - c/w home medications for blood pressure # Hyperlipidemia - home medications chronic, stable: # Hep C - s/p Harvoni therapy, LFT stable # Chronic back pain, - Percocet prn # Depression, Anxiety. stable. - continue anti-depressant # History of hereditary hemochromatosis currently followed by Dr. Horne. - high risk for hepatocellular carcinoma due to the history of hemochromatosis, hepatitis C (now in remission), with a questionable liver mass present Dispo: 1-2 days pending improved GI issues VTE Mechanical Devices: Intermittant Pneumatic CD Time spent 30 min Hardy Scanlon May 22, 2016 15:54
--- NOTE | 2016-05-22 16:43 | DRSVH ---
PROCEDURE: NM HIDA SCAN WITH CCK PHARMACEUTICAL: 4.6 mCi Tc-99m mebrofenin IV. INDICATIONS: Abdominal pain and cholelithiasis. TECHNIQUE: Following intravenous administration of Tc-99m mebrofenin, sequential anterior abdominal images were obtained. To evaluate the contractile response of the gallbladder in response to Cholecystokinin (CC K), sincalide (0.02 g/kg) was administered by slow intravenous infusion approximately 60 minutes aft er the administration of the radiopharmaceutical. Sequential imaging was continued for [address] the start of CCK infusion. Gallbladder ejection fraction was calculated. COMPARISON: [facility], CT, CT ABD W&WO CON PELVIS W CON, 05/18/2016, 18:45. [facility], US, US ABDOMEN, 05/17/2016, 17:46. FINDINGS: Biliary scan: There is normal tracer uptake and excretion by the liver. There is normal visualizati on of the intrahepatic ducts, common bile duct, and normal tracer transit into the duodenum. Gallbla dder was not visualized so 120 minutes. IMPRESSION: Non-visualization of gallbladder through 120 minutes. The scintigraphic findings are high ly suspicious for acute cholecystitis. Dictated by: Marifer Betts M.D. on 05/22/2016 at 16:33 Approved by: Marifer Betts M.D. on 05/22/2016 at 16:41
[2016-05-22 16:46] VITALS: BP 135/92; PULSE 84; RESP 18; O2SAT 98
--- NOTE | 2016-05-22 18:35 | NUR ---
Abd pain Patient attempted soft diet. Only able to tolerate "3 bite" before having increased pain/nausea. Diet changed to clear liquids. Patient reports abd pain, and esophageal pain after eating.
[2016-05-22 21:52] VITALS: BP 146/98; PULSE 74; RESP 18; O2SAT 96
[2016-05-22] MEDS: Insulin GLARgine 100 Unit/mL Syringe SUBQ SCH (22:01)
[2016-05-23 01:20] VITALS: BP 116/60; PULSE 75; RESP 20; O2SAT 96
[2016-05-23] MEDS: oxyCODONE-Acetamin 5-325 mg Tablet PO PRN ×4 (03:59→22:04)
[2016-05-23 04:59] VITALS: BP 119/79; PULSE 63; RESP 20; O2SAT 97
--- NOTE | 2016-05-23 05:32 | NUR ---
Pain Pt complains of severe upper GI pain. Administered percocet PRN and Morphine for breakthrough pain. VSS, and pt has been afebrile overnight.
[2016-05-23 06:00] LABS: Mean Corpuscular Volume 87.6 fL (81-100)
[2016-05-23 06:16] LABS: BASOPHILS % (AUTO) 0.4 % (0-3); EOSINOPHILS % (AUTO) 2.6 % (0-5); MONOCYTES % (AUTO) 10.6 % (4-12); Mean Corpuscular Hemoglobin 32.3 pg (27.0-35.0); Platelet Count 106 bil/L (150-400)
[2016-05-23] MEDS: Insulin LISPRO 300 Unit/3 mL Inj SUBQ SCH ×4 (08:00→21:29)
[2016-05-23] MEDS: Sucralfate 1,000 mg Tablet PO SCH ×4 (08:36→21:27)
[2016-05-23] MEDS: Lisinopril 40 Tablet PO SCH (08:36)
[2016-05-23 11:05] VITALS: BP 124/86; PULSE 72; RESP 18; O2SAT 98
--- NOTE | 2016-05-23 12:21 | PCM.PNMED ---
Subjective Date of Service May 23, 2016 Subjective Experienced epigastric pain following chicken noodle soup for lunch He states his epigastric pain has not improved since hospital admission Exam Vital Signs Vital Sign - Last Date Time Temp Pulse Resp B/P Pulse Ox O2 Delivery O2 Flow Rate FiO2 05/23/16 11:05 36.4 72 18 124/86 98 Room Air 05/17/16 17:00 2 Intake and Output 05/22/16 05/22/16 05/23/16 Cumulative From/Thru 15:00 23:00 07:00 05/17/16 11:48 - 05/23/16 06:14 Intake Total 920 ml 942 ml 400 ml 19638 ml Output Total 950 ml 600 ml 500 ml 62617 ml Balance -30 ml 342 ml -100 ml 5097 ml Intake Oral 920 ml 650 ml 400 ml 9431 ml IV Total 292 ml 6566 ml Output Urine Total 950 ml 600 ml 500 ml 9700 ml Stool Total 1200 ml # Voids 4 # Bowel Movements 0 0 0 0 Exam GEN- oriented and in no distress HEENT- o/p clear RESP- clear bilaterally CVS-RRR Abdomen-soft, epigastric tenderness EXT- no edema Lab and Diagnostics Result Diagram: 05/23/16 0545 05/23/16 0545 X-Rays, CTs and MRIs PROCEDURE: CT ABDOMEN W&WO CONTRAST, PELVIS WITH CONTRAST INDICATIONS: Possible liver mass, abdominal pain TECHNIQUE: After the administration of oral contrast, 5 mm thick sections acquired from the diaphragms to the iliac crests. After the administration of intravenous contrast, 5 mm thick sections acquired from the diaphragms to the symphysis. 5 mm thick coronal and sagittal reformats were acquired. For radiation dose reduction, the following was used: automated exposure control, adjustment of mA and/or kV according to patient size. COMPARISON: [facility], CT, ABD/PELVIS W/CON (PNL), 11/26/2013, 10: 01. [facility]ound, US, US ABD DOPPLER LTD, 12/21/2015, 8: 14. [facility], US, US ABDOMEN, 05/17/2016, 17:46. FINDINGS: Image quality: Excellent. ABDOMEN: Lung bases: Bibasilar scarring/atelectasis . Heart size is normal. Solid organs: Cirrhosis of the liver is present. No suspicious arterial enhancement. No focal lesion is seen. A definite correlate to the ultrasound appearance from prior study dated 12/21/15. Gallbladder sludge and small 1-2 mm gallstones are present. No definite gallbladder wall thickening or pericholecystic inflammation. Biliary tree and pancreas negative. Spleen unremarkable. 1.2 cm left adrenal nodule which is grossly unchanged since . Kidneys grossly unremarkable. No hydronephrosis. Bowel and peritoneum: Stomach, small and large bowel loops are normal in caliber and wall thickness. No free fluid or air. Colonic diverticulosis incidentally noted. Nodes and vessels: No retroperitoneal or mesenteric adenopathy by size criteria. Aorta and inferior vena are normal in caliber. Miscellaneous: No ventral hernias. PELVIS: Genitourinary: Bladder wall thickness is normal. Miscellaneous: No inguinal hernias or adenopathy. Bones: No suspicious bony lesions. No vertebral body compression fractures. IMPRESSION: Cirrhosis of the liver. No focal hepatic lesion identified or suspicious enhancement. Gallbladder sludge and small gallstones. No definite evidence of acute cholecystitis Additional chronic and incidental findings as above Dictated by: Pk Napoles M.D. on 05/18/2016 at 19:41 Approved by: Pk Napoles M.D. on 05/18/2016 at 19:56 PROCEDURE: US ABDOMEN ([id number]) INDICATIONS: Abdominal pain, hx gallstones and poss liver mass TECHNIQUE: Real-time scanning was performed of the abdominal and retroperitoneal organs, with image documentation. COMPARISON: [facility]ound, US, US ABDOMEN, 05/10/2015, 8: 11. FINDINGS: Liver: Liver is normal in size and homogeneous in echotexture. Gallbladder: The multiple mobile gallstones are identified. No gallbladder wall thickening. No pericholecystic fluid. No sonographic Tol[place] sign. Biliary ducts: Intrahepatic bile ducts are non-dilated. Extrahepatic bile duct caliber measures 6.1 mm. Normal is 6-7 mm or less in diameter, or 10 mm or less post-cholecystectomy. Pancreas: Visualized portions of the pancreas are sonographically normal. Spleen: Spleen is enlarged measuring 14.0 cm Spleen is homogeneous in echotexture. Kidneys: Kidneys are normal in size and echotexture. Right kidney measures 13.3 cm long; left kidney measures 12.9 cm long. No hydronephrosis or nephrolithiasis. No solid masses. Left renal cyst is noted. Aorta: Visualized aorta is normal in caliber at less than 3 cm. Iliacs: Proximal common iliac arteries are normal in caliber at less than 2.5 cm. IVC: Intrahepatic inferior vena cava is patent. Miscellaneous: No free abdominal fluid. IMPRESSION: 1. Cholelithiasis without evidence of cholecystitis. 2. Sonographic splenomegaly. Please correlate with clinical data. 3. Left renal cyst. Dictated by: Tracey Meier MD, PhD on 05/17/2016 at 18:47 Approved by: Tracey Meier MD, PhD on 05/17/2016 at 18:50 Additional Diagnostics PROCEDURE: Esophagogastroduodenoscopy. INDICATION: Hematemesis. Patient's ASA classification, Mallampati score and medications as per Dr. Jose Rafael Henderson' anesthesia report. INSTRUMENT USED: GIF H 180 J. PROCEDURE DETAILS: After informed consent was obtained, the patient was brought into the GI suite, where he was placed on oxygen via nasal cannula and monitored with continuous pulse oximeter, telemetry, and blood pressure monitoring. A time-out was performed and then he was placed in a left lateral decubitus position and medications were administered for sedation. A bite block was placed. The standard EGD scope was inserted through the bite block and advanced under direct visualization to the second portion of the duodenum without difficulty. FINDINGS: 1. There was evidence of old blood noted in the examined portions of the duodenum that we were able to clear with irrigation and suctioning. 2. Normal-appearing pylorus. In the antrum, body and fundus of the stomach, there was evidence of old blood in the form of coffee grounds which we were able to clear with suction irrigation. No fresh blood was seen in the stomach or duodenum. 3. The GE junction was at approximately 40 cm. From 40 cm extending up to 30 cm proximally, the mucosa was ulcerated, friable, appearance was consistent with ulcerative esophagitis. The proximal to 30 cm mucosa appeared unremarkable. 4. No esophageal or gastric varices were seen. 5. Portal gastropathy was appreciated in the antrum and gastric body of the stomach. IMPRESSION: 1. LA class B ulcerative esophagitis. 2. Portal gastropathy. RECOMMENDATIONS: 1. Sucralfate 1 g q.i.d. Continue PPI b.i.d. Recommend abdominal imaging to evaluate the patient's complaint of abdominal pain and check amylase and lipase. Would recommend discontinuing PPI drip. 2. A clear liquid diet. COMPLICATIONS: None. ESTIMATED BLOOD LOSS: 0. Go Covington MD 05/17/16 8381 PROCEDURE: US ABDOMEN ([id number]) INDICATIONS: Abdominal pain, hx gallstones and poss liver mass TECHNIQUE: Real-time scanning was performed of the abdominal and retroperitoneal organs, with image documentation. COMPARISON: [facility]ound, US, US ABDOMEN, 05/10/2015, 8: 11. FINDINGS: Liver: Liver is normal in size and homogeneous in echotexture. Gallbladder: The multiple mobile gallstones are identified. No gallbladder wall thickening. No pericholecystic fluid. No sonographic Toledo sign. Biliary ducts: Intrahepatic bile ducts are non-dilated. Extrahepatic bile duct caliber measures 6.1 mm. Normal is 6-7 mm or less in diameter, or 10 mm or less post-cholecystectomy. Pancreas: Visualized portions of the pancreas are sonographically normal. Spleen: Spleen is enlarged measuring 14.0 cm Spleen is homogeneous in echotexture. Kidneys: Kidneys are normal in size and echotexture. Right kidney measures 13.3 cm long; left kidney measures 12.9 cm long. No hydronephrosis or nephrolithiasis. No solid masses. Left renal cyst is noted. Aorta: Visualized aorta is normal in caliber at less than 3 cm. Iliacs: Proximal common iliac arteries are normal in caliber at less than 2.5 cm. IVC: Intrahepatic inferior vena cava is patent. Miscellaneous: No free abdominal fluid. IMPRESSION: 1. Cholelithiasis without evidence of cholecystitis. 2. Sonographic splenomegaly. Please correlate with clinical data. 3. Left renal cyst. Dictated by: Tracey Meier MD, PhD on 05/17/2016 at 18:47 Approved by: Tracey Meier MD, PhD on 05/17/2016 at 18:50 Assessment & Plan LA Class D Ulcerative esophagitis - Carafate 1g QID for 2 weeks - change protonix to Ranitidine 150mg PO BID secondary to rash on upper chest and back - Full liquid diet and if tolerates advance diet to soft mechanical Rash -discontinue protonix -D/W Dr Almendarez, observe overnight to make sure rash does not worsen Epigastric Abdominal pain -Epigastric pain continues -HIDA scan shows non filling of the gall bladder, suggestive of cholecystitis -Dr. Caldwell with general surgery has been consulted Constipation -secondary to chronic narcotic use -Improved with GoLYTELY - continue Miralax daily History of Chronic Hepatitis C -successfully treated with Harvoni Cirrhosis(secondary to Hx of Chronic hepatitis C) -MELD is 6 VTE Mechanical Devices: Intermittant Pneumatic CD Go Covington MD May 23, 2016 12:20
--- NOTE | 2016-05-23 13:16 | NUR ---
Pain/BG Pt c/o epigastric pain this AM. PRN pain meds given. LOTS of pt teaching provided re diet and alerting RN when pain is felt. Pt was on 'clear' diet with advance as tolerated. Pt refused jello, stating "the sugars and salts hurt my stomach" GI Dr in, also emphasized on slow advancement with diet. Pt stated "I won't eat anything if I can't have regular food" Pt ordered a sandwich for lunch and completely denied any abd discomfort. BG at lunch may be inaccurate as pt had been snacking on juice/chicken broth all day. Bed in low position, upper rails up, call light in reach.
--- NOTE | 2016-05-23 15:29 | NUR ---
spiritual care: routine conversational visit. pt reflected on his condition, insights/thoughts it is raising for him about his life, purposoe and hopes. Pt reflected on his [place] background and personal history as he explored his convictions and spirituality. Pt appreciative of offer of eucharistic ministry but declined it for himself for now. Pt shared his thoughts about eating and "messaging my body" as he also anticipates surgery with some anxiety. Pt appreciative of prayer and follow up.
[2016-05-23 15:45] VITALS: BP 114/77; PULSE 82; RESP 18; O2SAT 95
--- NOTE | 2016-05-23 15:48 | PCM.PNMED ---
Subjective Date of Service May 23, 2016 Subjective continued mid epigastric pain. says unable to tolerate advancing diet yesterday. Exam Vital Signs Vital Sign - Last Date Time Temp Pulse Resp B/P Pulse Ox O2 Delivery O2 Flow Rate FiO2 05/23/16 11:05 36.4 72 18 124/86 98 Room Air 05/17/16 17:00 2 Intake and Output 05/22/16 05/22/16 05/23/16 Cumulative From/Thru 15:00 23:00 07:00 05/17/16 11:48 - 05/23/16 06:14 Intake Total 920 ml 942 ml 400 ml 43258 ml Output Total 950 ml 600 ml 500 ml 13496 ml Balance -30 ml 342 ml -100 ml 5097 ml Intake Oral 920 ml 650 ml 400 ml 9431 ml IV Total 292 ml 6566 ml Output Urine Total 950 ml 600 ml 500 ml 9700 ml Stool Total 1200 ml # Voids 4 # Bowel Movements 0 0 0 0 Exam General: Alert, Cooperative, No Acute Distress Eyes: Scleral Anicteric Mouth: Mucous Membr Moist/[place]ck: Supple Chest & Lungs: Chest Wall Normal, Clear to auscultation bilat Cardiovascular: Regular Rate/Rhythm Pulses: NL carotid, radial, femoral, DP, PT Abdomen: Tender (mid epigastric and abd), Non-distended, Normoactive bowel tones, Soft Extremities: No cyanosis/clubbing/edema bilat Skin: Other (fairly diffuse macular rash on the back and the groins bilat) Neurological: Grossly Neurologically Intact, Normal Speech Lymphatic: Other Lymph Nodes (no lymphadenopathy) IVs and Medications Medications Reviewed: Medications were reviewed in detail Lab and Diagnostics Result Diagram: 05/23/1654405/23/1645 X-Rays, CTs and MRIs PROCEDURE: CT ABDOMEN W&WO CONTRAST, PELVIS WITH CONTRAST INDICATIONS: Possible liver mass, abdominal pain TECHNIQUE: After the administration of oral contrast, 5 mm thick sections acquired from the diaphragms to the iliac crests. After the administration of intravenous contrast, 5 mm thick sections acquired from the diaphragms to the symphysis. 5 mm thick coronal and sagittal reformats were acquired. For radiation dose reduction, the following was used: automated exposure control, adjustment of mA and/or kV according to patient size. COMPARISON: [facility], CT, ABD/PELVIS W/CON (PNL), 11/26/2013, 10: 01. [facility], US, US ABD DOPPLER LTD, 12/21/2015, 8: 14. [facility], US, US ABDOMEN, 05/17/2016, 17:46. FINDINGS: Image quality: Excellent. ABDOMEN: Lung bases: Bibasilar scarring/atelectasis . Heart size is normal. Solid organs: Cirrhosis of the liver is present. No suspicious arterial enhancement. No focal lesion is seen. A definite correlate to the ultrasound appearance from prior study dated 12/21/15. Gallbladder sludge and small 1-2 mm gallstones are present. No definite gallbladder wall thickening or pericholecystic inflammation. Biliary tree and pancreas negative. Spleen unremarkable. 1.2 cm left adrenal nodule which is grossly unchanged since . Kidneys grossly unremarkable. No hydronephrosis. Bowel and peritoneum: Stomach, small and large bowel loops are normal in caliber and wall thickness. No free fluid or air. Colonic diverticulosis incidentally noted. Nodes and vessels: No retroperitoneal or mesenteric adenopathy by size criteria. Aorta and inferior vena are normal in caliber. Miscellaneous: No ventral hernias. PELVIS: Genitourinary: Bladder wall thickness is normal. Miscellaneous: No inguinal hernias or adenopathy. Bones: No suspicious bony lesions. No vertebral body compression fractures. IMPRESSION: Cirrhosis of the liver. No focal hepatic lesion identified or suspicious enhancement. Gallbladder sludge and small gallstones. No definite evidence of acute cholecystitis Additional chronic and incidental findings as above Dictated by: Pk Napoles M.D. on 05/18/2016 at 19:41 Approved by: Pk Napoles M.D. on 05/18/2016 at 19:56 PROCEDURE: US ABDOMEN ([id number]) INDICATIONS: Abdominal pain, hx gallstones and poss liver mass TECHNIQUE: Real-time scanning was performed of the abdominal and retroperitoneal organs, with image documentation. COMPARISON: [facility], US, US ABDOMEN, 05/10/2015, 8: 11. FINDINGS: Liver: Liver is normal in size and homogeneous in echotexture. Gallbladder: The multiple mobile gallstones are identified. No gallbladder wall thickening. No pericholecystic fluid. No sonographic [place] sign. Biliary ducts: Intrahepatic bile ducts are non-dilated. Extrahepatic bile duct caliber measures 6.1 mm. Normal is 6-7 mm or less in diameter, or 10 mm or less post-cholecystectomy. Pancreas: Visualized portions of the pancreas are sonographically normal. Spleen: Spleen is enlarged measuring 14.0 cm Spleen is homogeneous in echotexture. Kidneys: Kidneys are normal in size and echotexture. Right kidney measures 13.3 cm long; left kidney measures 12.9 cm long. No hydronephrosis or nephrolithiasis. No solid masses. Left renal cyst is noted. Aorta: Visualized aorta is normal in caliber at less than 3 cm. Iliacs: Proximal common iliac arteries are normal in caliber at less than 2.5 cm. IVC: Intrahepatic inferior vena cava is patent. Miscellaneous: No free abdominal fluid. IMPRESSION: 1. Cholelithiasis without evidence of cholecystitis. 2. Sonographic splenomegaly. Please correlate with clinical data. 3. Left renal cyst. Dictated by: Tracey Meier MD, PhD on 05/17/2016 at 18:47 Approved by: Tracey Meier MD, PhD on 05/17/2016 at 18:50 Additional Diagnostics PROCEDURE: Esophagogastroduodenoscopy. INDICATION: Hematemesis. Patient's ASA classification, Mallampati score and medications as per Dr. Jose Rafael Henderson' anesthesia report. INSTRUMENT USED: GIF H 180 J. PROCEDURE DETAILS: After informed consent was obtained, the patient was brought into the GI suite, where he was placed on oxygen via nasal cannula and monitored with continuous pulse oximeter, telemetry, and blood pressure monitoring. A time-out was performed and then he was placed in a left lateral decubitus position and medications were administered for sedation. A bite block was placed. The standard EGD scope was inserted through the bite block and advanced under direct visualization to the second portion of the duodenum without difficulty. FINDINGS: 1. There was evidence of old blood noted in the examined portions of the duodenum that we were able to clear with irrigation and suctioning. 2. Normal-appearing pylorus. In the antrum, body and fundus of the stomach, there was evidence of old blood in the form of coffee grounds which we were able to clear with suction irrigation. No fresh blood was seen in the stomach or duodenum. 3. The GE junction was at approximately 40 cm. From 40 cm extending up to 30 cm proximally, the mucosa was ulcerated, friable, appearance was consistent with ulcerative esophagitis. The proximal to 30 cm mucosa appeared unremarkable. 4. No esophageal or gastric varices were seen. 5. Portal gastropathy was appreciated in the antrum and gastric body of the stomach. IMPRESSION: 1. LA class B ulcerative esophagitis. 2. Portal gastropathy. RECOMMENDATIONS: 1. Sucralfate 1 g q.i.d. Continue PPI b.i.d. Recommend abdominal imaging to evaluate the patient's complaint of abdominal pain and check amylase and lipase. Would recommend discontinuing PPI drip. 2. A clear liquid diet. COMPLICATIONS: None. ESTIMATED BLOOD LOSS: 0. Go Covington MD 05/17/16 1631 PROCEDURE: US ABDOMEN ([id number]) INDICATIONS: Abdominal pain, hx gallstones and poss liver mass TECHNIQUE: Real-time scanning was performed of the abdominal and retroperitoneal organs, with image documentation. COMPARISON: [facility], US, US ABDOMEN, 05/10/2015, 8: 11. FINDINGS: Liver: Liver is normal in size and homogeneous in echotexture. Gallbladder: The multiple mobile gallstones are identified. No gallbladder wall thickening. No pericholecystic fluid. No sonographic [place] sign. Biliary ducts: Intrahepatic bile ducts are non-dilated. Extrahepatic bile duct caliber measures 6.1 mm. Normal is 6-7 mm or less in diameter, or 10 mm or less post-cholecystectomy. Pancreas: Visualized portions of the pancreas are sonographically normal. Spleen: Spleen is enlarged measuring 14.0 cm Spleen is homogeneous in echotexture. Kidneys: Kidneys are normal in size and echotexture. Right kidney measures 13.3 cm long; left kidney measures 12.9 cm long. No hydronephrosis or nephrolithiasis. No solid masses. Left renal cyst is noted. Aorta: Visualized aorta is normal in caliber at less than 3 cm. Iliacs: Proximal common iliac arteries are normal in caliber at less than 2.5 cm. IVC: Intrahepatic inferior vena cava is patent. Miscellaneous: No free abdominal fluid. IMPRESSION: 1. Cholelithiasis without evidence of cholecystitis. 2. Sonographic splenomegaly. Please correlate with clinical data. 3. Left renal cyst. Dictated by: Tracey Meier MD, PhD on 05/17/2016 at 18:47 Approved by: Tracey Meier MD, PhD on 05/17/2016 at 18:50 Assessment & Plan 50 year old male with hx of diabetes on insulin, portal gastropathy, HTN, diverticulosis, hereditary hemochromatosis, Hep C treated with Harvoni, and colon polyps who presents with nausea and vomiting with hematemesis and abdominal pain. # Acute LA Class D Ulcerative esophagitis. poa. ongoing - appreciate GI consult. will f/u w/ recs - post Esophagogastroduodenoscopy on 05/17/16 showing: " LA class D ulcerative esophagitis. Portal gastropathy." - Carafate 1g QID for 2 weeks - changed Protonix to Ranitidine 150mg PO BID secondary to rash on upper chest and back - Full liquid diet and further advancing per GI recs - HIDA scan on 05/22/16 suggestive of cholecystitis # Abdominal pain most likely secondary to ulcerative esophagitis and cholecystitis. poa. ongoing - on repeat EGD, no varices, but persistent portal gastropathy. - HIDA scan on 05/22/16 suggestive of cholecystitis - surgery consulted today. will f/u w/ recs # Acute Rash. not poa. improving - discontinued Protonix on 05/21/16 - continue to f/u # Constipation. poa. improving - unable to tolerate GoLYTELY due to dysphagia - secondary to chronic narcotic use - continue Miralax daily # Acute Leukocytosis. poa. resolved # Dehydration. poa - resolved w/ IVF # Acute Hypokalemia. poa. - improved - replete and f/u # Insulin-dependent diabetes - Lantus 25 units daily at bedtime - Sliding scale # Hypertension. stable - c/w home medications for blood pressure # Hyperlipidemia - home medications chronic, stable: # Hep C - s/p Harvoni therapy, LFT stable # Chronic back pain, - Percocet prn # Depression, Anxiety. stable. - continue anti-depressant # History of hereditary hemochromatosis currently followed by Dr. Horne. - high risk for hepatocellular carcinoma due to the history of hemochromatosis, hepatitis C (now in remission), with a questionable liver mass present Dispo: 2-3 days pending GI issues VTE Mechanical Devices: Venous Foot Pump Time spent 35 min Hardy Scanlon May 23, 2016 15:48
--- NOTE | 2016-05-23 18:39 | CONS ---
[address] [address] CONSULTATION REPORT PATIENT: JANNIE GAMBOA : 1965 MR#: [id number] ADMIT: 05/17/2016 JOB ID: [id number] DATE OF SERVICE: 05/23/2016 CHIEF COMPLAINT: A 50-year-old gentleman with possible cholecystitis seen in consultation at the request of Wandy Covington MD. HISTORY OF PRESENT ILLNESS: The patient is a 50-year-old gentleman who was admitted to the hospital on May 17, 2016 with decreased appetite, nausea, vomiting, abdominal pain with an episode of coffee-ground emesis. He had a clinical diagnosis of cirrhosis associated with hepatitis C. Hepatitis was treated with Harvoni with a documented cure. He reports never having a liver biopsy. He does not ever remember having ascites. Dr. Covington performed an endoscopy on May 17, 2016 and saw some old blood in the duodenum, diagnosed him with portal gastropathy with ulcerative esophagitis. He was maintained on a proton pump inhibitor, and he continued to have abdominal pain and inability to eat. He had an abdominal ultrasound on May 17, and then a CT showing gallstones without obvious signs of cholecystitis but because of persistent abdominal symptoms, Dr. Covington requested a HIDA scan yesterday. The HIDA scan did not visualize the gallbladder, raising the question of cholecystitis, prompting surgical consultation today. By the time I walked into the patient's room, he was eating a sandwich. He states he continues to have abdominal pain, and the pain got actually exacerbated by the eating but because he has been relatively without solid for the past week, he is actually happy that he got to eat something today. OTHER MEDICAL PROBLEMS: 1. Insulin-dependent diabetes mellitus. 2. Hypertension. 3. Hyperlipidemia. 4. Hereditary hemochromatosis. 5. Diverticulosis. 6. Colonic polyposis. 7. Chronic back pain. 8. Depression and anxiety. 9. Hepatitis C after Harvoni treatment. 10. Cirrhosis. PRIOR OPERATIONS: 1. Back surgery. 2. Hip surgery. 3. Finger surgery. 4. Wrist surgery. 5. Drainage of prostate abscess. ALLERGIES: No known drug allergies. SOCIAL HISTORY: He does drink alcohol occasionally, he does not smoke cigarettes. He does use marijuana and remote history of use of cocaine. REVIEW OF SYSTEMS: Twelve point review of systems negative other than the pertinent positives noted in the history of present illness and other medical problems. MEDICATIONS: 1. Insulin. 2. Atorvastatin. 3. Citalopram. 4. Lisinopril. 5. Amlodipine. 6. Pepcid. 7. Sucralfate. 8. Morphine. ALLERGIES: No known drug allergies. FAMILY HISTORY: Grandmother has diabetes and heart disease. Mother in a motor vehicle crash. Brother has some kind of cancer. INVESTIGATIONS: Labs May 23, 2016: WBC 9.1, down from 15.5 at the time of presentation. Hemoglobin 14.6, platelet count 106, creatinine 0.63 and glucose 141. Liver function tests mostly normal with occasional ALT 45, albumin 4.0, INR 1.0. Abdominal ultrasound dated May 17, 2016 showed multiple mobile gallstones with no gallbladder wall thickening or pericholecystic fluid. CT abdomen and pelvis showed a sense of cirrhosis with gallbladder sludge and stones but no evidence of obvious cholecystitis. HIDA scan performed May 22, 2016 showed normal uptake by the liver followed by excretion and visualization of the biliary ducts, but the gallbladder could not be visualized. Suspicious for cholecystitis. PHYSICAL EXAMINATION: A 50-year-old gentleman in no acute distress. BMI 29.7, temperature 36.4, pulse 72, blood pressure 124/86, saturating 98% on room air. Eyes: Normal pupils, conjunctivae. Ears, nose, and throat: Normal external appearance. Neck: No adenopathy or jugular venous distention. Respiratory: Normal effort, clear to auscultation. Cardiovascular: Regular rate and rhythm. Gastrointestinal: Abdomen tender to deep palpation immediately right of the epigastrium. Musculoskeletal: Normal strength in extremities. Neurologic: No gross deficits. Psych: Alert, appropriate. ASSESSMENT AND PLAN: Cholecystitis: Given the nonvisualization of the gallbladder on the HIDA scan, I would indeed suspect cholecystitis especially given his continued upper abdominal tenderness. Unfortunately, he already ate today, so I do not think we are going to plan the operation today. I will start him on Unasyn and plan for laparoscopic cholecystectomy with intraoperative cholangiogram tomorrow. I will discuss the case with Dr. Niesha Harris who is on-call tomorrow and depending on the schedule, either myself or she will be able to take care of it. Given his cirrhosis, he would obviously be a higher operative risk, but even with that with symptomatic gallstones, even if he does not truly have cholecystitis, I think he needs to have his gallbladder removed.
[2016-05-23] MEDS: Insulin GLARgine 100 Unit/mL Syringe SUBQ SCH (21:29)
[2016-05-23] MEDS: Ampicillin-Sulbactam Inj 3,000 MG in 0.9% Sodium Chloride 100 ML IV SCH (21:30)
[2016-05-23 21:53] VITALS: BP 125/78; PULSE 62; RESP 18; O2SAT 97
[2016-05-24] VITALS (13 sets, daily range): BP systolic 122–166; BP diastolic 78–91; PULSE 54–108; RESP 12–20; O2SAT 89–98
[2016-05-24] MEDS: oxyCODONE-Acetamin 5-325 mg Tablet PO PRN ×3 (02:08→19:13)
[2016-05-24] MEDS: Ampicillin-Sulbactam Inj 3,000 MG in 0.9% Sodium Chloride 100 ML IV SCH ×3 (02:09→12:12)
[2016-05-24] MEDS ORDERED: Lactated Ringer's 1,000 ML IV SCH ×2 (05:00→11:34)
--- NOTE | 2016-05-24 05:50 | NUR ---
NPO/Diabetic Teaching/Anxiety Start of shift, educated pt about diabetic diet and food to avoid. Pt verbalizes understanding. Pt has been NPO since midnight for upcoming surgery. Pt is teary-eyed and anxious about the surgery. Calm reassurance and allow pt to verbalize feelings. Second large bore IV access established. Denies chest pain, sob, n/v but still complains of abd pain. PRN IV morphine given. No further complains.
[2016-05-24] MEDS: Lisinopril 40 Tablet PO SCH (07:45)
[2016-05-24] MEDS: Insulin LISPRO 300 Unit/3 mL Inj SUBQ SCH ×4 (07:45→21:29)
[2016-05-24] MEDS: Sucralfate 1,000 mg Tablet PO SCH ×4 (07:45→21:28)
--- NOTE | 2016-05-24 09:18 | PCM.HPANE ---
Patient Data Surgeon Admitting Provider:Go Covington MD Attending Provider:Go Covington MD Primary Care Physician:Zelalem Echols MD Other Provider: Reason for Visit Upper Gi Bleed UPPER GI BLEED Ht/WT & BMI Height (Feet): 5 Height (Inches): 11.00 Weight (Kilograms): 96.600 Body Mass Index 29.81 Allergies Coded Allergies: No Known Drug Allergies (Verified Allergy, Unknown, 05/17/16) Past Anesthesia History Anesthesia History: Denies:: Abnormal Airway, Anesthesia Reactions, Difficult Intubation, Fam Anesthesia Reaction, Fam Malignant Hypertherm, Malignant Hyperthermia Diabetes History Hx Diabetes?: Yes (12 yrs) Type of Diabetes: Type II Glycemic Control: Insulin Dependent Current Bedside Blood Glucose: 143 MRSA MRSA: No Medications Reported Medications Atorvastatin (Lipitor)10 Mg Tab10 Mg PO DAILY 05/17/16 Amlodipine 10 Mg Fblcfq08 Mg PO DAILY 05/17/16 Lisinopril 40 Mg Fbnrdl17 Mg PO DAILY 05/17/16 Oxycodone (Roxicodone)5 Mg Tablet5 Mg PO TID PRN For Pain 05/17/16 Hydrochlorothiazide 50 Mg Stivun46 Mg PO DAILY 12/06/15 Carisoprodol (Soma)350 Mg Phzuis508 Mg PO BID PRN For Spasm 08/23/15 Insulin Regular, Human (HUMulin-R U100 Insulin Vial)100 Unit/1 Ml Vial3-5 Unit SUBQ ACHS SLIDING SCALE 06/25/15 Citalopram 20 Mg Dicxpx44 Mg PO DAILY 06/25/15 Insulin Glargine (Lantus U100 Solostar Insulin Pen)100 Unit/1 Ml Insuln.pen25 Unit SUBQ EVENING 04/29/14 Discontinued Reported Medications Lisinopril 40 Mg Ogdxvm91 Mg PO DAILY Ref 0 12/06/15 Discontinued Scripts Ondansetron ODT (Zofran ODT)4 Mg Tablet4 Mg PO Q4H PRN For Nausea #20 TABLET Prov:Quan Gonzalez MD 05/17/[address] (Prevacid)30 Mg Gvesmdw57 Mg PO DAILY #20 CAPSULE Ref 0 Prov:Quan Gonzalez MD 05/17/16 oxyCODONE 5 Mg Capsule5 Mg PO Q4H PRN For Pain #20 CAPSULE Ref 0 Prov:Jermaine Zendejas MD 12/03/13 History History of ENT Problems?: No HEENT History: Denies:: Abnormal Airway Cataracts Difficult Intubation Dysphagia Glaucoma Hearing Problem Sinus Problem Denture Type: Partial- Upper Partial- Lower Hx of Heart Problems?: Yes Cardiovascular History: Positive for:: Edema (ANKLES, none present today) Hypertension (hyperlipidemia) Denies:: AICD Atrial Fibrillation Chest Pain Congestive Heart Failure Heart Murmur Pacemaker Rheumatic Fever Thrombophlebitis Valvular Heart Disease Hx of Respiratory Problem?: No Respiratory History: Positive for:: Cough Dyspnea Denies:: Asthma COPD Chest Surgery Emphysema Hemoptysis Pneumonia Tuberculosis Use of C-PAP Machine Hx Neurologic Problems?: Yes Neurological History: Positive for:: Headaches Denies:: Alzheimer's Disease CVA Dementia Dizziness Seizures Hx of GI Problems?: Yes Gastrointestinal History: Positive for:: Cirrhosis Gastroesphageal Reflux Hepatitis (hep C s/p anti-retroviral therapy(HARVONI)) Liver Disease (HEP C "CURED") Denies:: Diverticulitis (DIVERTICULOSIS) Gastrointestinal Bleeding Heartburn Hiatal Hernia Rectal Bleeding (HX OF COLON POLYPS) Hx of Problems?: Yes Genitourinary History: Positive for:: Kidney Stones (HX OF) Denies:: HX of Hemodialysis Urinary Tract Infection Male Hx: Positive for:: Prostate Problems (S/P TUR PROSTATIC ABCESS 2013) Denies:: Scrotal Mass Testicular Surgery Skin History: Positive for:: History Skin Disorders? (HX OF CHRONIC PRURITIS/ RASHES) Denies:: Pressure Ulcers Hx Musculoskeletal Problems?: Yes Musculoskeletal History: Positive for:: Back Injury (chronic back pain) Musculoskeletal Trauma (HX FX HAND/WRIST S/P RPR MCA'S X3) Denies:: Joint Replacement Hx of Psycho/Social Problems?: Yes Psycho Social History: Positive for:: Anxiety Hx Depression (medicated) Denies:: Bipolar Disorder Suicide Attempt Hx Surgeries?: Yes (BACK, HIP, FINGER WRIST, prostate) Hx Any Other Health Problems?: Yes Other History: Positive for:: Hospitalization Denies:: Cancer Endocrine Disease (c/of chills) Thyroid Disease History Blood Transfusions: Positive for:: Accept Blood Products? Denies:: Blood Transfuse Reaction Blood Transfusions Hx Diabetes: Yes (12 yrs)Bedside Blood Glucose: 143 Hx Alcohol Use: Yes (quit drinking "my liver cannot handle it")Hx Substance Use: Yes (CURRENT MARIJUANA; ) Smoking Status: Never Smoker Have You Smoked inLast 12 mo: No Stop/Bang Treated for Sleep Apnea?: No Do You Have a CPAP Machine?: No S-Snoring: Do You Snore Loudly: No T-Tired: feel tired, fatigued: Yes O-Obsered: Observed not breath: No P-Blood Pressure: treated: Yes B- Body Mass Index > 35 kg/m2: No A- Age over 50: Yes N- Neck Large Circumference: No G- Gender Male: Yes MED Total Score: 3 MED Category 2: Yes Risk Assessment Category Category 1A: Patient has history of documented sleep apnea, and HAS NOT received any narcotic, sedative or anesthesia administration during this stay. Category 1B: Patient has history of documented sleep apnea, and HAS received any narcotic , sedative or anesthesia administration during this stay Category 2: Patient has SUSPECTED Obstructive Sleep Apnea, and HAS received any narcotic , sedative or anesthesia administration during this stay. Category 3: Patient has SUSPECTED Obstructive Sleep Apnea and HAS NOT received narcotic, sedative or anesthesia administration during this stay. Category 4: Outpatient in Procedural Areas with known sleep apnea or who screen positive for High Risk via the STOP/BANG questionnaire. Exam Exam Vital Signs Vital Signs Date Time Temp Pulse Resp B/P Pulse Ox O2 Delivery O2 Flow Rate FiO2 05/24/16 04:23 36.5 54 18 122/78 96 Room Air 05/24/16 01:22 36.3 59 18 124/80 97 Room Air General Appearance: Alert, Oriented X3, Cooperative, Moderate Distress HEENT/AIRWAY: MP 2, Neck Movement (from), Mouth Opening (WNL, most teeth missing, poor denitition) Lungs: Clear to Auscultation Heart: Exam Unremarkable Meds/Labs/Diagnostics Admission Meds Current Medications Lactated Ringer's 1,000 ml @ 120 mls/hr Q8H20M IV Last administered on 05:01; Start 05/24/16 at 05:00; Stop 05/24/16 at 13:19 Ampicillin Sodium/ Sulbactam Sodium/ Sodium Chloride (Unasyn Inj/ Normal Saline ) 100 ml @ 200 mls/hr Q6 IV Last administered on 05/24/16 07:46; Start at 20:30 Bedside Blood Glucose: 143 Labs Test 05/17/16 12:14 05/18/16 06:14 05/20/16 05:25 05/20/16 07:16 Prothrombin Time 10.9sec (8.1-12.5) Prothromb Time International Ratio 1.02ratio Amylase Level 44U/L (28-100) Lipase 27U/L (13-60) Phosphorus Level 1.8mg/dL (2.5-4.9) Magnesium Level 2.0mg/dL (1.6-2.6) Hemoglobin A1c 7.7% (4.8-5.6) Urine Color Yellow (YELLOW) Urine Appearance Clear (CLEAR,HAZY) Urine pH 7.0 (5.0-8.0) Urine Specific [place] 1.015 (1.003-1.035) Urine Protein Negativemg/dL (NEG,TRACE) Urine Glucose (UA) 500mg/dL (NEGATIVE) Urine Ketones Negativemg/dL (NEGATIVE) Urine Occult Blood Negative (NEGATIVE) Urine Nitrite Negative (NEGATIVE) Urine Bilirubin Negative (NEGATIVE) Urine Urobilinogen 4.0mg/dL (NORMAL) Urine Leukocyte Esterase Negative (NEGATIVE) Urine RBC 0-2/hpf (0-2) Urine WBC 0-5/hpf (0-5) Urine Epithelial Cells Occasional/hpf (NONE-MOD) Urine Crystals None seen (NONE SEEN) Urine Bacteria None/hpf (NONE-FEW) Urine Hyaline Casts None/lpf (NONE) Urine Granular Casts None seen (NONE SEEN) Urine Waxy Casts None seen (NONE SEEN) Urine Red Blood Cell Casts None seen (NONE SEEN) Urine White Blood Cell Casts None seen (NONE SEEN) Urine Mucus None seen (None Seen) Urine Trichomonas None seen (NONE SEEN) Urine Yeast None (NONE SEEN) Urinalysis Comment None Urine Culture Reflexed Not indicated Test 05/21/16 06:25 05/23/16 05:45 Total Bilirubin 0.9mg/dL (0.0-1.2) Aspartate Amino Transf (AST/SGOT) 28U/L (0-50) Alanine Aminotransferase (ALT/SGPT) 45U/L (0-44) Alkaline Phosphatase 68U/L (25-150) Total Protein 6.4g/dL (6.4-8.4) Albumin 4.0g/dL (3.4-5.0) White Blood Count 9.1th/mm3 (3.8-10.1) Red Blood Count 4.52mil/mm3 (4.40-5.80) Hemoglobin 14.6g/dL (13.8-17.2) Hematocrit 39.6% (41.0-50.0) Mean Corpuscular Volume 87.6fL (81-100) Mean Corpuscular Hemoglobin 32.3pg (27.0-35.0) Mean Corpuscular Hemoglobin Concent 36.9% (32.0-37.0) Red Cell Distribution Width 12.5% (12.3-15.4) Platelet Count 106bil/L (150-400) Neutrophils (%) (Auto) 54.0% (40-74) Lymphocytes (%) (Auto) 30.7% (14-46) Monocytes (%) (Auto) 10.6% (4-12) Eosinophils (%) (Auto) 2.6% (0-5) Basophils (%) (Auto) 0.4% (0-3) Sodium Level 142mEq/L (134-144) Potassium Level 3.8mEq/L (3.5-5.2) Chloride Level 103mEq/L (97-108) Carbon Dioxide Level 26mmol/L (18-29) Blood Urea Nitrogen 10mg/dL (6-24) Creatinine 0.63mg/dL (0.76-1.27) Estimat Glomerular Filtration Rate 142mL/min (>59) Glucose Level 141mg/dL (60-99) Calcium Level 9.1mg/dL (8.5-10.1) Plan Impression Patient chart reviewed, patient interviewed and anesthestic plan with risks, benefits, and alternatives discussed, and informed consent obtained. NPO Status: COFFEE BLACK 5AM ASA Physical Status: ASA3 Severe Disease Anesthetic Plan: GA Bene/Risks/Altern/Consents: Yes HP Complete Prior to Induction: Yes Jose Rafael Henderson MD May 24, 2016 09:18
[2016-05-24] MEDS ORDERED: Lactated Ringer's 1,000 ML IV ONE ×2 (09:19→12:04)
[2016-05-24] MEDS ORDERED: fentaNYL-PF 50 mCg/mL 2 mL Inj ONE (10:20)
[2016-05-24] MEDS ORDERED: HYDROmorphone 2 mg/mL Inj ONE (10:20)
[2016-05-24] MEDS: Insulin GLARgine 100 Unit/mL Syringe SUBQ SCH ×2 (11:00→21:29)
--- NOTE | 2016-05-24 11:14 | NUR ---
Pt to OR Pt off unit to OR for roby mills at 1100. Report called to Nandini POP. Pt alert and oriented at time of transfer. Consent signed. Pt ambulated to OR cart.
[2016-05-24] MEDS ORDERED: Lactated Ringer's 500 ML IV PRN (11:34)
[2016-05-24] MEDS ORDERED: Ondansetron 2 mg/mL 2 mL Inj IVPUSH PRN (11:35)
[2016-05-24] MEDS ORDERED: Phenylephrine 10,000 mCg/mL Inj IVPUSH PRN (11:35)
[2016-05-24] MEDS ORDERED: EPHEDrine Sulfate 50 mg/mL Inj IVPUSH PRN (11:35)
[2016-05-24] MEDS ORDERED: hydrOXYzine Inj 25 MG/1 mL SDV IM PRN (11:35)
[2016-05-24] MEDS ORDERED: Atropine 0.4 mg/mL Inj IVPUSH PRN (11:35)
[2016-05-24] MEDS ORDERED: hydrALAZINE 20 mg/mL Inj IVPUSH PRN (11:35)
[2016-05-24] MEDS ORDERED: Dexamethasone 4 mg/mL Inj IVPUSH PRN (11:35)
[2016-05-24] MEDS ORDERED: EPHEDrine Sulfate 50 mg/mL Inj IM PRN (11:35)
[2016-05-24] MEDS ORDERED: Labetalol 5 mg/mL 4 mL Inj IV PRN (11:35)
[2016-05-24] MEDS ORDERED: HYDROmorphone 1 mg/mL Inj IVPUSH PRN (11:35)
[2016-05-24] MEDS ORDERED: Bupivacaine-MPF 0.5% 30 mL Inj INFILTRATE ONE (12:02)
--- NOTE | 2016-05-24 12:53 | NUR ---
Social Work-readiness for discharge: Data:EMR Reviewed. Pt is on day 7 of hospitalization for Upper GI Bleed per H&P. Pt is not medically stable anticipate tomorrow. Pt to have surgery today. Pt resides at home alone and is independent at baseline. Per RN notes, pt has been up independent in his room. No anticipated discharge needs. SW will continue to follow if needs arise. Assessment:Pt who is independent at baseline. Plan:Pt to discharge home when medically stable via POV. No anticipated discharge needs. SW will continue to follow if needs arise. ADDISON Blank
--- NOTE | 2016-05-24 13:08 | PCM.ANEP1 ---
Post Anesthesia Phase 1 PACU Phase 1 Assessment Date of Service: May 17, 2016 Vital Signs Vital Signs Date Time Temp Pulse Resp B/P Pulse Ox O2 Delivery O2 Flow Rate FiO2 05/24/16 10:44 36.2 57 20 132/87 97 Room Air Anesthetic Administered: GA Level of Alertness: Awake, talking MARAVILLA's with Equal Strength: Yes Pain: Yes (Level 9 - gut/back) Pain Scale Score: 6 Nausea or Vomiting: No Oxygen Delivery: Nasal Cannula Lungs: Clear to Auscultation Jose Rafael Henderson MD May 24, 2016 13:08
[2016-05-24] MEDS: fentaNYL-PF 50 mCg/mL 2 mL Inj IVPUSH PRN ×2 (13:35→13:42)
--- NOTE | 2016-05-24 13:54 | PCM.SURGPO ---
Immediate Operative Note Date of Surgery: May 24, 2016 Pre Operative Diagnosis Cholecystitis, Cirrhosis Post Operative Diagnosis Cholecystitis, Cirrhosis Procedure Laparoscopic Cholecystectomy with Cholangiogram Surgeon and Licensed Occupational Therapy Assistant Surgeon: Mukesh Caldwell MD Assistants: Nereyda Albarran PAC Findings Cirrhosis, Normal Cholangiogram Complications There were no periprocedural complications identified. Surgical Specimen Removed: Yes Specimen sent to Pathology: Yes Surgical Specimen description: Gallbladder Anesthetic Administered: GA Grafts, Implants: None Output, Estimated Blood Loss: 1 Blood Admin during surgery: No Attending Statement [place] Bottom Maker listed was medically necessary for the successful completion of the case Mukesh Caldwell MD May 24, 2016 13:54
--- NOTE | 2016-05-24 14:07 | DRSVH ---
PROCEDURE: X-RAY OPERATIVE CHOLANGIOGRAM ([id number]) INDICATIONS: UPPER GI BLEED COMPARISON: None. FINDINGS: Biliary ducts: The surgeon injected contrast into the biliary ducts after cannulation of the cystic duct stump. Visualized intra- and extrahepatic bile ducts are normal in caliber, and there is taperi ng of the distal common bile duct with significant narrowing of the distal common bile duct proximal to the ampulla. No intraluminal filling defects to suggest retained ductal stones or sludge. No yazmin dence for iatrogenic ductal injury. Duodenum: Contrast flows promptly through the sphincter of Oddi into the duodenum, which appears nor mal in caliber. IMPRESSION: 1. 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 Underlying neoplastic stricture cannot be excluded. An ERCP or MRCP is r ecommended. Dictated by: Dwaine Cardona [facility] Interpreted: Marifer Betts MD on 05/24/2016 at 14:04 Transcribed by: TANIA on 05/24/2016 at 14:06 Approved by: Marifer Betts M.D. on 05/25/2016 at 8:59
--- NOTE | 2016-05-24 14:28 | OP ---
[address] [address] OPERATIVE REPORT PATIENT: JANNIE GAMBOA : 1965 MR#: [id number] ADMIT: 05/17/2016 JOB ID: [id number] DATE OF SURGERY: 05/24/2016 PREOPERATIVE DIAGNOSIS(ES): Acute cholecystitis. POSTOPERATIVE DIAGNOSIS(ES): Possible acute cholecystitis. SURGEON: Mukesh Caldwell MD. SHIP CONSTRUCTION TEACHER: Noni Albarran PA-C. OPERATION PERFORMED: Laparoscopic cholecystectomy with intraoperative cholangiogram. COMPLICATIONS: None. CONDITION OF THE PATIENT: Stable. INDICATIONS: The patient is a 50-year-old gentleman with hepatitis C-induced cirrhosis who came in with upper abdominal pain and was diagnosed with portal gastropathy, and Dr. Covington performed an endoscopy. In addition to that, because of persistent symptoms, he had an ultrasound, a CT and a HIDA scan. Despite gallstones, the ultrasound and CT did not suggest any acute problems but the HIDA scan did not opacify the gallbladder raising the possibility of chronic or acute cholecystitis. After discussing the risks, benefits, and alternatives, he is here today for laparoscopic cholecystectomy with cholangiogram. PROCEDURE DETAILS: He was placed in a supine position. Underwent smooth induction of general anesthesia. Abdomen was prepped and draped in the usual sterile fashion. Surgical time-out was undertaken using safety checklist, and all were in agreement. I made a curvilinear supraumbilical incision and entered the abdomen using open Relily technique with a 5 mm Optiview trocar and obtained pneumoperitoneum. After insufflating the abdomen, I upsized this to a 12 mm and then placed an additional three 5 mm trocars in the epigastrium and two in the right upper quadrant. After that, the gallbladder was retracted cephalad and to the right, and the triangle of Calot was dissected anteriorly and posteriorly, isolating the cystic artery between clips and dividing it. The cystic duct was then clipped on the specimen side, and a ductotomy was made and a cholangiogram was obtained. It showed a long cystic duct stump with no filling defects in the biliary tree, and I then doubly clipped the cystic duct on the patient's side and divided it and then dissected the gallbladder with good hemostasis of the liver bed. I placed it in an EndoCatch bag and removed it from the umbilical port site. The right upper quadrant fluid was suctioned free, and ports were removed under direct vision. Pneumoperitoneum was evacuated. Umbilical port fascia was closed with [id number] 0 Vicryl sutures. Skin was reapproximated with 4-0 Monocryl. Steri-Strips and sterile dressing were applied. Patient was recovered from anesthesia, taken to the recovery room in stable condition.
--- NOTE | 2016-05-24 15:21 | NUR ---
Pt back to Floor Pt returned to unit at 1421. Pt drowsy. Able to move self from cart to bed. Lap sites present x4, CDI. Has LR running at 120ml/hr. Has 2L O2 NC on. Rating pain at a "12" in upper abdominal area. Did received significant amounts of pain medication in PACU per report, and unable to have additional medication at this time. Treating pain with relaxation techniques and rest. Room darkened, door closed, and ice chips provided for pt. Upon reassessment, pt laying quietly in bed with eyes closed. Will monitor pain frequently, and treat as able.
--- NOTE | 2016-05-24 17:19 | PCM.PNMED ---
Subjective Date of Service May 24, 2016 Subjective denies any new issues/complaints Exam Vital Signs Vital Sign - Last Date Time Temp Pulse Resp B/P Pulse Ox O2 Delivery O2 Flow Rate FiO2 05/24/16 15:07 91 20 130/84 95 Room Air 05/24/16 14:10 2 05/24/16 13:05 36.6 Intake and Output 05/23/16 05/23/16 05/24/16 Cumulative From/Thru 15:00 23:00 07:00 05/17/16 11:48 - 05/24/16 05:55 Intake Total 1350 ml 456 ml 82815 ml Output Total 900 ml 300 ml 23948 ml Balance 450 ml 156 ml 5703 ml Intake Oral 1350 ml 236 ml 38693 ml IV Total 220 ml 6786 ml Output Urine Total 900 ml 300 ml 46025 ml Stool Total 1200 ml # Voids 4 # Bowel Movements 2 0 2 Exam General: Alert, Cooperative, No Acute Distress Eyes: Scleral Anicteric Mouth: Mucous Membr Moist/[place] Neck: Supple Chest & Lungs: Chest Wall Normal, Clear to auscultation bilat Cardiovascular: Regular Rate/Rhythm Pulses: NL carotid, radial, femoral, DP, PT Abdomen: Tender (mid epigastric and abd), Non-distended, Normoactive bowel tones, Soft Extremities: No cyanosis/clubbing/edema bilat Neurological: Grossly Neurologically Intact, Normal Speech IVs and Medications Medications Reviewed: Medications were reviewed in detail Lab and Diagnostics Result Diagram: 05/23/1645 05/23/1645 X-Rays, CTs and MRIs PROCEDURE: CT ABDOMEN W&WO CONTRAST, PELVIS WITH CONTRAST INDICATIONS: Possible liver mass, abdominal pain TECHNIQUE: After the administration of oral contrast, 5 mm thick sections acquired from the diaphragms to the iliac crests. After the administration of intravenous contrast, 5 mm thick sections acquired from the diaphragms to the symphysis. 5 mm thick coronal and sagittal reformats were acquired. For radiation dose reduction, the following was used: automated exposure control, adjustment of mA and/or kV according to patient size. COMPARISON: [facility], CT, ABD/PELVIS W/CON (PNL), 11/26/2013, 10: 01. [facility], US, US ABD DOPPLER LTD, 12/21/2015, 8: 14. [facility], US, US ABDOMEN, 05/17/2016, 17:46. FINDINGS: Image quality: Excellent. ABDOMEN: Lung bases: Bibasilar scarring/atelectasis . Heart size is normal. Solid organs: Cirrhosis of the liver is present. No suspicious arterial enhancement. No focal lesion is seen. A definite correlate to the ultrasound appearance from prior study dated 12/21/15. Gallbladder sludge and small 1-2 mm gallstones are present. No definite gallbladder wall thickening or pericholecystic inflammation. Biliary tree and pancreas negative. Spleen unremarkable. 1.2 cm left adrenal nodule which is grossly unchanged since . Kidneys grossly unremarkable. No hydronephrosis. Bowel and peritoneum: Stomach, small and large bowel loops are normal in caliber and wall thickness. No free fluid or air. Colonic diverticulosis incidentally noted. Nodes and vessels: No retroperitoneal or mesenteric adenopathy by size criteria. Aorta and inferior vena are normal in caliber. Miscellaneous: No ventral hernias. PELVIS: Genitourinary: Bladder wall thickness is normal. Miscellaneous: No inguinal hernias or adenopathy. Bones: No suspicious bony lesions. No vertebral body compression fractures. IMPRESSION: Cirrhosis of the liver. No focal hepatic lesion identified or suspicious enhancement. Gallbladder sludge and small gallstones. No definite evidence of acute cholecystitis Additional chronic and incidental findings as above Dictated by: Pk Napoles M.D. on 05/18/2016 at 19:41 Approved by: Pk Napoles M.D. on 05/18/2016 at 19:56 PROCEDURE: US ABDOMEN ([id number]) INDICATIONS: Abdominal pain, hx gallstones and poss liver mass TECHNIQUE: Real-time scanning was performed of the abdominal and retroperitoneal organs, with image documentation. COMPARISON: [facility], US, US ABDOMEN, 05/10/2015, 8: 11. FINDINGS: Liver: Liver is normal in size and homogeneous in echotexture. Gallbladder: The multiple mobile gallstones are identified. No gallbladder wall thickening. No pericholecystic fluid. No sonographic [place] sign. Biliary ducts: Intrahepatic bile ducts are non-dilated. Extrahepatic bile duct caliber measures 6.1 mm. Normal is 6-7 mm or less in diameter, or 10 mm or less post-cholecystectomy. Pancreas: Visualized portions of the pancreas are sonographically normal. Spleen: Spleen is enlarged measuring 14.0 cm Spleen is homogeneous in echotexture. Kidneys: Kidneys are normal in size and echotexture. Right kidney measures 13.3 cm long; left kidney measures 12.9 cm long. No hydronephrosis or nephrolithiasis. No solid masses. Left renal cyst is noted. Aorta: Visualized aorta is normal in caliber at less than 3 cm. Iliacs: Proximal common iliac arteries are normal in caliber at less than 2.5 cm. IVC: Intrahepatic inferior vena cava is patent. Miscellaneous: No free abdominal fluid. IMPRESSION: 1. Cholelithiasis without evidence of cholecystitis. 2. Sonographic splenomegaly. Please correlate with clinical data. 3. Left renal cyst. Dictated by: Tracey Meier MD, PhD on 05/17/2016 at 18:47 Approved by: Tracey Meier MD, PhD on 05/17/2016 at 18:50 Additional Diagnostics PROCEDURE: Esophagogastroduodenoscopy. INDICATION: Hematemesis. Patient's ASA classification, Mallampati score and medications as per Dr. Jose Rafael Henderson' anesthesia report. INSTRUMENT USED: GIF H 180 J. PROCEDURE DETAILS: After informed consent was obtained, the patient was brought into the GI suite, where he was placed on oxygen via nasal cannula and monitored with continuous pulse oximeter, telemetry, and blood pressure monitoring. A time-out was performed and then he was placed in a left lateral decubitus position and medications were administered for sedation. A bite block was placed. The standard EGD scope was inserted through the bite block and advanced under direct visualization to the second portion of the duodenum without difficulty. FINDINGS: 1. There was evidence of old blood noted in the examined portions of the duodenum that we were able to clear with irrigation and suctioning. 2. Normal-appearing pylorus. In the antrum, body and fundus of the stomach, there was evidence of old blood in the form of coffee grounds which we were able to clear with suction irrigation. No fresh blood was seen in the stomach or duodenum. 3. The GE junction was at approximately 40 cm. From 40 cm extending up to 30 cm proximally, the mucosa was ulcerated, friable, appearance was consistent with ulcerative esophagitis. The proximal to 30 cm mucosa appeared unremarkable. 4. No esophageal or gastric varices were seen. 5. Portal gastropathy was appreciated in the antrum and gastric body of the stomach. IMPRESSION: 1. LA class B ulcerative esophagitis. 2. Portal gastropathy. RECOMMENDATIONS: 1. Sucralfate 1 g q.i.d. Continue PPI b.i.d. Recommend abdominal imaging to evaluate the patient's complaint of abdominal pain and check amylase and lipase. Would recommend discontinuing PPI drip. 2. A clear liquid diet. COMPLICATIONS: None. ESTIMATED BLOOD LOSS: 0. Go Covington MD 05/17/16 1631 PROCEDURE: US ABDOMEN ([id number]) INDICATIONS: Abdominal pain, hx gallstones and poss liver mass TECHNIQUE: Real-time scanning was performed of the abdominal and retroperitoneal organs, with image documentation. COMPARISON: [facility], US, US ABDOMEN, 05/10/2015, 8: 11. FINDINGS: Liver: Liver is normal in size and homogeneous in echotexture. Gallbladder: The multiple mobile gallstones are identified. No gallbladder wall thickening. No pericholecystic fluid. No sonographic [place] sign. Biliary ducts: Intrahepatic bile ducts are non-dilated. Extrahepatic bile duct caliber measures 6.1 mm. Normal is 6-7 mm or less in diameter, or 10 mm or less post-cholecystectomy. Pancreas: Visualized portions of the pancreas are sonographically normal. Spleen: Spleen is enlarged measuring 14.0 cm Spleen is homogeneous in echotexture. Kidneys: Kidneys are normal in size and echotexture. Right kidney measures 13.3 cm long; left kidney measures 12.9 cm long. No hydronephrosis or nephrolithiasis. No solid masses. Left renal cyst is noted. Aorta: Visualized aorta is normal in caliber at less than 3 cm. Iliacs: Proximal common iliac arteries are normal in caliber at less than 2.5 cm. IVC: Intrahepatic inferior vena cava is patent. Miscellaneous: No free abdominal fluid. IMPRESSION: 1. Cholelithiasis without evidence of cholecystitis. 2. Sonographic splenomegaly. Please correlate with clinical data. 3. Left renal cyst. Dictated by: Tracey Meier MD, PhD on 05/17/2016 at 18:47 Approved by: Tracey Meier MD, PhD on 05/17/2016 at 18:50 Assessment & Plan 50 year old male with hx of diabetes on insulin, portal gastropathy, HTN, diverticulosis, hereditary hemochromatosis, Hep C treated with Harvoni, and colon polyps who presents with nausea and vomiting with hematemesis and abdominal pain. # Acute LA Class D Ulcerative esophagitis. poa. ongoing - appreciate GI consult. will f/u w/ recs - post Esophagogastroduodenoscopy on 05/17/16 showing: " LA class D ulcerative esophagitis. Portal gastropathy." - Carafate 1g QID for 2 weeks - changed Protonix to Ranitidine 150mg PO BID secondary to rash on upper chest and back - HIDA scan on 05/22/16 suggestive of cholecystitis # Abdominal pain most likely secondary to ulcerative esophagitis and cholecystitis. poa. ongoing - on repeat EGD, no varices, but persistent portal gastropathy. - HIDA scan on 05/22/16 suggestive of cholecystitis - appreciate surgery consult. will f/u w/ recs - plan for cholecystectomy today # Acute Rash. not poa. improving - discontinued Protonix on 05/21/16 - continue to f/u # Constipation. poa. improving - unable to tolerate GoLYTELY due to dysphagia - secondary to chronic narcotic use - continue Miralax daily # Acute Leukocytosis. poa. resolved # Dehydration. poa - resolved w/ IVF # Acute Hypokalemia. poa. - improved - replete and f/u # Insulin-dependent diabetes - Lantus 25 units daily at bedtime - Sliding scale # Hypertension. stable - c/w home medications for blood pressure # Hyperlipidemia - home medications chronic, stable: # Hep C - s/p Harvoni therapy, LFT stable # Chronic back pain, - Percocet prn # Depression, Anxiety. stable. - continue anti-depressant # History of hereditary hemochromatosis currently followed by Dr. Horne. - high risk for hepatocellular carcinoma due to the history of hemochromatosis, hepatitis C (now in remission), with a questionable liver mass present Dispo: 1-2 days pending GI issues VTE Mechanical Devices: Venous Foot Pump Time spent 25 min Hardy Scanlon May 24, 2016 17:19
--- NOTE | 2016-05-24 20:59 | PCM.ANEP2 ---
Post Anesthesia Evaluation ASA/CMS Post Anesthesia VS in Patient's Normal Range?: Yes Resp Stable; Airway Patent?: Yes CV Function & Hydration Stable: Yes Mental Status Recovered?: Yes Pain control Satisfactory?: Yes N/V Control Satisfactory?: Yes Jose Rafael Hendreson MD May 24, 2016 20:59
[2016-05-25] MEDS: oxyCODONE-Acetamin 5-325 mg Tablet PO PRN (00:03)
--- NOTE | 2016-05-25 06:03 | NUR ---
diet/pain Pt tolerated regular diet for diet w/ minimal abdominal pain. Pt requested percocet and morphine x2 this shift for 6-8/10 abdominal pain with good relief. Independent in the room; gait steady. bandaids x4 CDI. VSS, afebrile.
[2016-05-25 07:01] VITALS: BP 150/86; PULSE 66; RESP 20; O2SAT 98
--- NOTE | 2016-05-25 07:27 | PCM.PNSURG ---
Subjective Date of Service: May 25, 2016 Visit Information: Cirrhosis & Cholecystitis s/ p Lap Venessa with IOC 05/24/2016 Post-Op Day # 1 Date of Admission: May 17, 2016 at 17:25 Hospital Day # 9 Subjective: Feels well, Happy Objective Vital Sign- Last 8 Hours Date Time Temp Pulse Resp B/P Pulse Ox O2 Delivery O2 Flow Rate FiO2 05/25/16 07:01 36.6 66 20 150/86 98 Room Air Intake and Output- Last 8 Hour 05/25/16 Cumulative From/Thru 07:00 05/17/16 11:48 - 05/24/16 19:30 Intake Total 74453 ml Output Total 08738 ml Balance 7467 ml Intake Oral 25733 ml IV Total 8886 ml Output Urine Total 37888 ml Stool Total 1200 ml Estimated Blood Loss 1 ml # Voids 4 # Bowel Movements 2 Abdomen: Soft, Other (Dressings dry) Result Diagram: 05/23/16 0545 05/23/16 0545 Assessment & Plan Impression Doing well Problems: Plan Okay to DC from surgical standpoint F/U in 2-3 weeks Mukesh Caldwell MD May 25, 2016 07:27
[2016-05-25] MEDS: Sucralfate 1,000 mg Tablet PO SCH ×2 (07:56→11:45)
[2016-05-25] MEDS: Lisinopril 40 Tablet PO SCH (07:56)
[2016-05-25] MEDS: Insulin LISPRO 300 Unit/3 mL Inj SUBQ SCH ×2 (07:57→11:51)
[2016-05-25] MEDS: Insulin GLARgine 100 Unit/mL Syringe SUBQ SCH (07:57)
--- NOTE | 2016-05-25 10:48 | NUR ---
Social Work: Discharge Data: Pt is on day 8 of hospitalization. EMR reviewed. Pt discussed in rounds. D/C orders are in. No further d/c planning needs anticipated at this time. Assessment: Pt who is independent at baseline. Plan: Pt will d/c home today via POV. No further d/c planning needs anticipated at this time. PACK CHANGER will follow if needs arise. ADDISON Ramirez
[2016-05-25 11:10] VITALS: BP 143/73; PULSE 84; RESP 20; O2SAT 94
--- NOTE | 2016-05-25 11:56 | NUR ---
Pain/BM: Patient rates abdominal pain 4/10 on pain scale. Patient declines offer of pain medication. Patient states he has not had BM since this weekend and no flatus. I&O documentation states there was a BM on 05/23. Encouraged patient to ambulate and PO fluids.
[2016-05-25] MEDS ORDERED: FAMO20T PO (14:21)
[2016-05-25] MEDS ORDERED: OXYC-474 PO (14:21)
[2016-05-25] MEDS ORDERED: SUCR1TAB30 PO (14:21)
--- NOTE | 2016-05-25 14:30 | PCM.DIMED ---
Discharge Instructions Date of Service May 25, 2016 Dates of Hospitalization May 17, 2016 at 17:25 Discharge Diagnosis Discharge Diagnosis # Acute LA Class D Ulcerative esophagitis. present on admission. improving - post Esophagogastroduodenoscopy on 05/17/16 showing: " LA class D ulcerative esophagitis. Portal gastropathy." # Abdominal pain most likely secondary to ulcerative esophagitis and cholecystitis. present on admission. Improved # Possible acute cholecystitis. present on admission. - post Laparoscopic cholecystectomy with intraoperative cholangiogram on 05/24/16 # Acute non-pruritic macular rash. not present on admission. Unclear etiology but possibly drug reaction - will need close followup with primary care provide in the next few days to ensure resolution # Constipation. present on admission. Improved # Acute Leukocytosis. resolved # Dehydration. present on admission. resolved. # Acute Hypokalemia. present on admission. resolved. chronic, stable: # Hep C - post Harvoni therapy, LFT stable # Chronic back pain, stable # Depression, Anxiety. stable. # History of hereditary hemochromatosis currently followed by Dr. Horne. # Insulin-dependent diabetes # Hypertension. stable # Hyperlipidemia Diet Low fat, Low Sodium, Heart Healthy, Diabetic Activity No restrictions Call your provider Fever or Chills, Shortness of breath, Bleeding, Chest pain, Excessive diarrhea Patient Instructions Seek immediate medical attention if any new or worsening signs or symptoms occur. Follow-up plan 1. Followup with primary care provider in 4-5 days 2. Followup with surgery (Dr. Caldwell) in 2-3 weeks. Call to setup appointment [address] [phone] 3. Followup with gastroenterology (Dr. Covington) in 4-[address] [id number] Follow-up Provider: Zelalem Echols MD Provider: Mukesh Caldwell MD Mid-level Provider (F9): Go Covington MD, Masoud May 25, 2016 14:30
--- NOTE | 2016-05-25 16:56 | NUR ---
Discharge: Patient discharged to home @ approx 1620. IV x2 d/c'd intact. Personal belongings sent home with patient including home medications returned from pharmacy. Reviewed new prescriptions, home medication list, d/c instructions, and follow up appointments. Verbalized understanding. Patient ambulated to main entrance accompanied by SIFTER OPERATOR.
--- NOTE | 2016-05-25 20:02 | PCM.DC.MED ---
Discharge Summary Date of Service May 25, 2016 Dates of Hospitalization Date of Hospital Admission May 17, 2016 at 17:25 Date of Discharge: May 25, 2016 Providers: Admitting Physician: Go Covington MD Primary Care Physician: Zelalem Echols MD Attending Physician: Go Covington MD Diagnosis at Time of Discharge Diagnosis at Time of Discharge # Acute LA Class D Ulcerative esophagitis. present on admission. improving - post Esophagogastroduodenoscopy on 05/17/16 showing: " LA class D ulcerative esophagitis. Portal gastropathy." # Abdominal pain most likely secondary to ulcerative esophagitis and cholecystitis. present on admission. Improved # Possible acute cholecystitis. present on admission. - post Laparoscopic cholecystectomy with intraoperative cholangiogram on 05/24/16 # Acute non-pruritic macular rash. not present on admission. Unclear etiology but possibly drug reaction - will need close followup with primary care provide in the next few days to ensure resolution # Constipation. present on admission. Improved # Acute Leukocytosis. resolved # Dehydration. present on admission. resolved. # Acute Hypokalemia. present on admission. resolved. chronic, stable: # Hep C - post Harvoni therapy, LFT stable # Chronic back pain, stable # Depression, Anxiety. stable. # History of hereditary hemochromatosis currently followed by Dr. Horne. # Insulin-dependent diabetes # Hypertension. stable # Hyperlipidemia Consultations 1. GI 2. Surgery Procedures XRay, CTs & MRIs PROCEDURE: CT ABDOMEN W&WO CONTRAST, PELVIS WITH CONTRAST INDICATIONS: Possible liver mass, abdominal pain TECHNIQUE: After the administration of oral contrast, 5 mm thick sections acquired from the diaphragms to the iliac crests. After the administration of intravenous contrast, 5 mm thick sections acquired from the diaphragms to the symphysis. 5 mm thick coronal and sagittal reformats were acquired. For radiation dose reduction, the following was used: automated exposure control, adjustment of mA and/or kV according to patient size. COMPARISON: [facility], CT, ABD/PELVIS W/CON (PNL), 11/26/2013, 10: 01. [facility] Ultrasound, US, US ABD DOPPLER LTD, 12/21/2015, 8: 14. [facility], US, US ABDOMEN, 05/17/2016, 17:46. FINDINGS: Image quality: Excellent. ABDOMEN: Lung bases: Bibasilar scarring/atelectasis . Heart size is normal. Solid organs: Cirrhosis of the liver is present. No suspicious arterial enhancement. No focal lesion is seen. A definite correlate to the ultrasound appearance from prior study dated 12/21/15. Gallbladder sludge and small 1-2 mm gallstones are present. No definite gallbladder wall thickening or pericholecystic inflammation. Biliary tree and pancreas negative. Spleen unremarkable. 1.2 cm left adrenal nodule which is grossly unchanged since . Kidneys grossly unremarkable. No hydronephrosis. Bowel and peritoneum: Stomach, small and large bowel loops are normal in caliber and wall thickness. No free fluid or air. Colonic diverticulosis incidentally noted. Nodes and vessels: No retroperitoneal or mesenteric adenopathy by size criteria. Aorta and inferior vena are normal in caliber. Miscellaneous: No ventral hernias. PELVIS: Genitourinary: Bladder wall thickness is normal. Miscellaneous: No inguinal hernias or adenopathy. Bones: No suspicious bony lesions. No vertebral body compression fractures. IMPRESSION: Cirrhosis of the liver. No focal hepatic lesion identified or suspicious enhancement. Gallbladder sludge and small gallstones. No definite evidence of acute cholecystitis Additional chronic and incidental findings as above Dictated by: Pk Napoles M.D. on 05/18/2016 at 19:41 Approved by: Pk Napoles M.D. on 05/18/2016 at 19:56 PROCEDURE: US ABDOMEN ([id number]) INDICATIONS: Abdominal pain, hx gallstones and poss liver mass TECHNIQUE: Real-time scanning was performed of the abdominal and retroperitoneal organs, with image documentation. COMPARISON: [facility] Ultrasound, US, US ABDOMEN, 05/10/2015, 8: 11. FINDINGS: Liver: Liver is normal in size and homogeneous in echotexture. Gallbladder: The multiple mobile gallstones are identified. No gallbladder wall thickening. No pericholecystic fluid. No sonographic Toledo sign. Biliary ducts: Intrahepatic bile ducts are non-dilated. Extrahepatic bile duct caliber measures 6.1 mm. Normal is 6-7 mm or less in diameter, or 10 mm or less post-cholecystectomy. Pancreas: Visualized portions of the pancreas are sonographically normal. Spleen: Spleen is enlarged measuring 14.0 cm Spleen is homogeneous in echotexture. Kidneys: Kidneys are normal in size and echotexture. Right kidney measures 13.3 cm long; left kidney measures 12.9 cm long. No hydronephrosis or nephrolithiasis. No solid masses. Left renal cyst is noted. Aorta: Visualized aorta is normal in caliber at less than 3 cm. Iliacs: Proximal common iliac arteries are normal in caliber at less than 2.5 cm. IVC: Intrahepatic inferior vena cava is patent. Miscellaneous: No free abdominal fluid. IMPRESSION: 1. Cholelithiasis without evidence of cholecystitis. 2. Sonographic splenomegaly. Please correlate with clinical data. 3. Left renal cyst. Dictated by: Tracey Meier MD, PhD on 05/17/2016 at 18:47 Approved by: Tracey Meier MD, PhD on 05/17/2016 at 18:50 Invasive Procedures DATE OF SURGERY: 05/24/2016 PREOPERATIVE DIAGNOSIS(ES): Acute cholecystitis. POSTOPERATIVE DIAGNOSIS(ES): Possible acute cholecystitis. SURGEON: Mukesh Caldwell MD. [employer] PROGRAMMER: Noni Albarran PA-C. OPERATION PERFORMED: Laparoscopic cholecystectomy with intraoperative cholangiogram. COMPLICATIONS: None. CONDITION OF THE PATIENT: Stable. INDICATIONS: The patient is a 50-year-old gentleman with hepatitis C-induced cirrhosis who came in with upper abdominal pain and was diagnosed with portal gastropathy, and Dr. Covington performed an endoscopy. In addition to that, because of persistent symptoms, he had an ultrasound, a CT and a HIDA scan. Despite gallstones, the ultrasound and CT did not suggest any acute problems but the HIDA scan did not opacify the gallbladder raising the possibility of chronic or acute cholecystitis. After discussing the risks, benefits, and alternatives, he is here today for laparoscopic cholecystectomy with cholangiogram. PROCEDURE DETAILS: He was placed in a supine position. Underwent smooth induction of general anesthesia. Abdomen was prepped and draped in the usual sterile fashion. Surgical time-out was undertaken using safety checklist, and all were in agreement. I made a curvilinear supraumbilical incision and entered the abdomen using open Reilly technique with a 5 mm Optiview trocar and obtained pneumoperitoneum. After insufflating the abdomen, I upsized this to a 12 mm and then placed an additional three 5 mm trocars in the epigastrium and two in the right upper quadrant. After that, the gallbladder was retracted cephalad and to the right, and the triangle of Calot was dissected anteriorly and posteriorly, isolating the cystic artery between clips and dividing it. The cystic duct was then clipped on the specimen side, and a ductotomy was made and a cholangiogram was obtained. It showed a long cystic duct stump with no filling defects in the biliary tree, and I then doubly clipped the cystic duct on the patient's side and divided it and then dissected the gallbladder with good hemostasis of the liver bed. I placed it in an EndoCatch bag and removed it from the umbilical port site. The right upper quadrant fluid was suctioned free, and ports were removed under direct vision. Pneumoperitoneum was evacuated. Umbilical port fascia was closed with [id number] 0 Vicryl sutures. Skin was reapproximated with 4-0 Monocryl. Steri-Strips and sterile dressing were applied. Patient was recovered from anesthesia, taken to the recovery room in stable condition. Mukesh Caldwell MD 05/24/16 1400 Report status: Draft Transcribed by: CHRISTOPHER 05/24/16 1427 REPORT#: [id number] cc: Zelalem Echols MD; Mukesh Caldwell MD Other Diagnostics PROCEDURE: Esophagogastroduodenoscopy. INDICATION: Hematemesis. Patient's ASA classification, Mallampati score and medications as per Dr. Jose Rafael Henderson' anesthesia report. INSTRUMENT USED: GIF H 180 J. PROCEDURE DETAILS: After informed consent was obtained, the patient was brought into the GI suite, where he was placed on oxygen via nasal cannula and monitored with continuous pulse oximeter, telemetry, and blood pressure monitoring. A time-out was performed and then he was placed in a left lateral decubitus position and medications were administered for sedation. A bite block was placed. The standard EGD scope was inserted through the bite block and advanced under direct visualization to the second portion of the duodenum without difficulty. FINDINGS: 1. There was evidence of old blood noted in the examined portions of the duodenum that we were able to clear with irrigation and suctioning. 2. Normal-appearing pylorus. In the antrum, body and fundus of the stomach, there was evidence of old blood in the form of coffee grounds which we were able to clear with suction irrigation. No fresh blood was seen in the stomach or duodenum. 3. The GE junction was at approximately 40 cm. From 40 cm extending up to 30 cm proximally, the mucosa was ulcerated, friable, appearance was consistent with ulcerative esophagitis. The proximal to 30 cm mucosa appeared unremarkable. 4. No esophageal or gastric varices were seen. 5. Portal gastropathy was appreciated in the antrum and gastric body of the stomach. IMPRESSION: 1. LA class B ulcerative esophagitis. 2. Portal gastropathy. RECOMMENDATIONS: 1. Sucralfate 1 g q.i.d. Continue PPI b.i.d. Recommend abdominal imaging to evaluate the patient's complaint of abdominal pain and check amylase and lipase. Would recommend discontinuing PPI drip. 2. A clear liquid diet. COMPLICATIONS: None. ESTIMATED BLOOD LOSS: 0. Go Covington MD 05/17/16 1631 PROCEDURE: US ABDOMEN ([id number]) INDICATIONS: Abdominal pain, hx gallstones and poss liver mass TECHNIQUE: Real-time scanning was performed of the abdominal and retroperitoneal organs, with image documentation. COMPARISON: [facility] Ultrasound, US, US ABDOMEN, 05/10/2015, 8: 11. FINDINGS: Liver: Liver is normal in size and homogeneous in echotexture. Gallbladder: The multiple mobile gallstones are identified. No gallbladder wall thickening. No pericholecystic fluid. No sonographic Toledo sign. Biliary ducts: Intrahepatic bile ducts are non-dilated. Extrahepatic bile duct caliber measures 6.1 mm. Normal is 6-7 mm or less in diameter, or 10 mm or less post-cholecystectomy. Pancreas: Visualized portions of the pancreas are sonographically normal. Spleen: Spleen is enlarged measuring 14.0 cm Spleen is homogeneous in echotexture. Kidneys: Kidneys are normal in size and echotexture. Right kidney measures 13.3 cm long; left kidney measures 12.9 cm long. No hydronephrosis or nephrolithiasis. No solid masses. Left renal cyst is noted. Aorta: Visualized aorta is normal in caliber at less than 3 cm. Iliacs: Proximal common iliac arteries are normal in caliber at less than 2.5 cm. IVC: Intrahepatic inferior vena cava is patent. Miscellaneous: No free abdominal fluid. IMPRESSION: 1. Cholelithiasis without evidence of cholecystitis. 2. Sonographic splenomegaly. Please correlate with clinical data. 3. Left renal cyst. Dictated by: Tracey Meier MD, PhD on 05/17/2016 at 18:47 Approved by: Tracey Meier MD, PhD on 05/17/2016 at 18:50 Brief History 50 year old male with hx of diabetes on insulin, portal gastropathy, HTN, diverticulosis, hereditary hemochromatosis, Hep C treated with Harvoni, and colon polyps who presents with nausea and vomiting with hematemesis and abdominal pain. Hospital Course # Acute LA Class D Ulcerative esophagitis. poa. ongoing - appreciate GI consult. will f/u w/ recs - post Esophagogastroduodenoscopy on 05/17/16 showing: " LA class D ulcerative esophagitis. Portal gastropathy." - Carafate 1g QID for 2 weeks - changed Protonix to Ranitidine 150mg PO BID secondary to rash on upper chest and back - HIDA scan on 05/22/16 suggestive of cholecystitis # Abdominal pain most likely secondary to ulcerative esophagitis and cholecystitis. poa. Resolved after cholecystectomy - on repeat EGD, no varices, but persistent portal gastropathy. - HIDA scan on 05/22/16 suggestive of cholecystitis - post lap gene on 05/24/16. # Acute Rash. not poa. ongoing - discontinued Protonix on 05/21/16 - continue to f/u # Constipation. poa. improved # Acute Leukocytosis. poa. resolved # Dehydration. poa - resolved w/ IVF # Acute Hypokalemia. poa. - improved # Insulin-dependent diabetes - Lantus 25 units daily at bedtime - Sliding scale # Hypertension. stable - c/w home medications for blood pressure # Hyperlipidemia - home medications chronic, stable: # Hep C - s/p Harvoni therapy, LFT stable # Chronic back pain, - Percocet prn # Depression, Anxiety. stable. - continue anti-depressant # History of hereditary hemochromatosis currently followed by Dr. Horne. - high risk for hepatocellular carcinoma due to the history of hemochromatosis, hepatitis C (now in remission), with a questionable liver mass present by day of d/c abdomen soft, nd, +bs. tolerating po diet and requesting d/c home Exam Vital Signs (Last) Date Time Temp Pulse Resp B/P Pulse Ox O2 Delivery O2 Flow Rate FiO2 2/9/17 11:10 36.5 84 20 143/73 94 Room Air 05/24/16 14:10 2 Test 05/17/16 12:14 05/18/16 06:14 05/20/16 05:25 05/20/16 07:16 Prothrombin Time 10.9sec (8.1-12.5) Prothromb Time International Ratio 1.02ratio Amylase Level 44U/L (28-100) Lipase 27U/L (13-60) Phosphorus Level 1.8mg/dL (2.5-4.9) Magnesium Level 2.0mg/dL (1.6-2.6) Hemoglobin A1c 7.7% (4.8-5.6) Urine Color Yellow (YELLOW) Urine Appearance Clear (CLEAR,HAZY) Urine pH 7.0 (5.0-8.0) Urine Specific Tanner 1.015 (1.003-1.035) Urine Protein Negativemg/dL (NEG,TRACE) Urine Glucose (UA) 500mg/dL (NEGATIVE) Urine Ketones Negativemg/dL (NEGATIVE) Urine Occult Blood Negative (NEGATIVE) Urine Nitrite Negative (NEGATIVE) Urine Bilirubin Negative (NEGATIVE) Urine Urobilinogen 4.0mg/dL (NORMAL) Urine Leukocyte Esterase Negative (NEGATIVE) Urine RBC 0-2/hpf (0-2) Urine WBC 0-5/hpf (0-5) Urine Epithelial Cells Occasional/hpf (NONE-MOD) Urine Crystals None seen (NONE SEEN) Urine Bacteria None/hpf (NONE-FEW) Urine Hyaline Casts None/lpf (NONE) Urine Granular Casts None seen (NONE SEEN) Urine Waxy Casts None seen (NONE SEEN) Urine Red Blood Cell Casts None seen (NONE SEEN) Urine White Blood Cell Casts None seen (NONE SEEN) Urine Mucus None seen (None Seen) Urine Trichomonas None seen (NONE SEEN) Urine Yeast None (NONE SEEN) Urinalysis Comment None Urine Culture Reflexed Not indicated Test 05/21/16 06:25 05/23/16 05:45 Total Bilirubin 0.9mg/dL (0.0-1.2) Aspartate Amino Transf (AST/SGOT) 28U/L (0-50) Alanine Aminotransferase (ALT/SGPT) 45U/L (0-44) Alkaline Phosphatase 68U/L (25-150) Total Protein 6.4g/dL (6.4-8.4) Albumin 4.0g/dL (3.4-5.0) White Blood Count 9.1th/mm3 (3.8-10.1) Red Blood Count 4.52mil/mm3 (4.40-5.80) Hemoglobin 14.6g/dL (13.8-17.2) Hematocrit 39.6% (41.0-50.0) Mean Corpuscular Volume 87.6fL (81-100) Mean Corpuscular Hemoglobin 32.3pg (27.0-35.0) Mean Corpuscular Hemoglobin Concent 36.9% (32.0-37.0) Red Cell Distribution Width 12.5% (12.3-15.4) Platelet Count 106bil/L (150-400) Neutrophils (%) (Auto) 54.0% (40-74) Lymphocytes (%) (Auto) 30.7% (14-46) Monocytes (%) (Auto) 10.6% (4-12) Eosinophils (%) (Auto) 2.6% (0-5) Basophils (%) (Auto) 0.4% (0-3) Sodium Level 142mEq/L (134-144) Potassium Level 3.8mEq/L (3.5-5.2) Chloride Level 103mEq/L (97-108) Carbon Dioxide Level 26mmol/L (18-29) Blood Urea Nitrogen 10mg/dL (6-24) Creatinine 0.63mg/dL (0.76-1.27) Estimat Glomerular Filtration Rate 142mL/min (>59) Glucose Level 141mg/dL (60-99) Calcium Level 9.1mg/dL (8.5-10.1) Discharge Medications Discharge Medications Amlodipine (Amlodipine) 10 Mg Tablet 10 MG PO DAILY (Reported) Atorvastatin (Lipitor) 10 Mg Tab 10 MG PO DAILY (Reported) Citalopram (Citalopram) 20 Mg Tablet 20 MG PO DAILY (Reported) Famotidine (Pepcid) 20 Mg Tablet 40 MG PO BID Prescribed by: DAVID HAUSER MD Hydrochlorothiazide (Hydrochlorothiazide) 50 Mg Tablet 50 MG PO DAILY (Reported ) Insulin Glargine (Lantus U100 Solostar Insulin Pen) 100 Unit/1 Ml Insuln.pen 25 UNIT SUBQ EVENING (Reported) Insulin Regular, Human (HUMulin-R U100 Insulin Vial) 100 Unit/1 Ml Vial 3-5 UNIT SUBQ ACHS (Reported) SLIDING SCALE Lisinopril (Lisinopril) 40 Mg Tablet 40 MG PO DAILY (Reported) Sucralfate (Carafate) 1 Gm Tablet 1,000 MG PO ACHS Prescribed by: DAVID HAUSER MD As needed Carisoprodol (Soma) 350 Mg Tablet 350 MG PO BID PRN PRN For Spasm (Reported) Oxycodone (Roxicodone) 5 Mg Tablet 5 MG PO TID PRN PRN For Pain Prescribed by: DAVID HAUSER MD Followup Plan Disposition: home Follow-up plan 1. Followup with primary care provider in 4-5 days 2. Followup with surgery (Dr. Caldwell) in 2-3 weeks. Call to setup appointment [address] [phone] 3. Followup with gastroenterology (Dr. Covington) in 4-[address] [id number] Discharge Diet: Low fat, Low Sodium, Heart Healthy, Diabetic Discharge Activity: No restrictions Patient Instructions Seek immediate medical attention if any new or worsening signs or symptoms occur. Follow-up Provider: Zelalem Echols MD Provider: Mukesh Caldwell MD Mid-level Provider: Go Covington MD Time spent 35 min copies to: Go Covington MD; Zelalem Echols MD; Mukesh Caldwell MD, Masoud May 25, 2016 20:02
--- NOTE | 2016-05-25 20:21 | NUR ---
spiritual care: (late entry) pt preparing for discharge, reflected on his surgery, hopes and sense of purpose in his life as he anticipates better health. pt grateful and articulate about his medical procedure and personal goals. blessing
--- NOTE | 2016-05-26 11:21 | PATH ---
SURGICAL PATHOLOGY Attending Physician:Mukesh Caldwell MD CASE STATUS: Signed Out PATIENT NAME: JANNIE GAMBOA II PID: [id number] : 1965 DATE COLLECTED:05/24/2016 23:44 SPECIMEN: Gallbladder CLINICAL HISTORY: ACUTE CHOLECYSTITIS 1). GALLBLADDER FINAL DIAGNOSIS: 1.GALLBLADDER: CHOLELITHIASIS WITH ASSOCIATED MILD CHRONIC CHOLECYSTITIS. ICD10 CODE K80.66 GROSS DESCRIPTION: The specimen is received in one formalin filled container labeled with the patient's name, sublabeled "gallbladder" and consists of an intact 10.5 x 5.0 x 5.0 CM gallbladder. The serosa is smooth. The wall is 0.2-0.3 CM in thickness. The mucosa is a green sosa to green-brown in color. The lumen contains a dark brown mucoid to friable material and approximately 10 yellow-sosa calculi which range in size from 0.1-0.7 CM in greatest dimension. 5 operations support representative sections are submitted in one cassette. 05/25/2016 DAC MICRO DESCRIPTION: See diagnosis. ICD-9 CODES: CPT CODES: 1: 27604 Electronically Signed Out Toney Louis MD [facility] [address], [place] [address] Technical component performed at [facility], [facility] [address], [place], [address]
[2016-06-05] MEDS ORDERED: HYDR28OI2 TP (12:26)
[2016-08-29] MEDS ORDERED: INSU100I13 SUBQ (08:26)
== END 2016-05-25 16:20 | disposition home or self-care (01) | DRG 417 ==
LOC: SED 11:46 → EDBD 11:46 → END 15:43 → MPC 17:25
PROVIDERS: ADMIT Internal Medicine Gastroenterology; ATTEND Internal Medicine
PROC: 0DJ08ZZ Inspection of Upper Intestinal Tract, Via Natural or Artificial Opening Endoscopic (ICD-10-PCS; principal; 2016-05-17 15:15)
PROC: 0FT44ZZ Resection of Gallbladder, Percutaneous Endoscopic Approach (ICD-10-PCS; 2016-05-24)
PROC: BF101ZZ Fluoroscopy of Bile Ducts using Low Osmolar Contrast (ICD-10-PCS; 2016-05-24)
DX: K81.0 Acute cholecystitis (principal); K22.11 Ulcer of esophagus with bleeding; K76.6 Portal hypertension; E11.8 Type 2 diabetes mellitus with unspecified complications; B18.2 Chronic viral hepatitis C; Z79.4 Long term (current) use of insulin; I10 Essential (primary) hypertension; E78.5 Hyperlipidemia, unspecified; G89.29 Other chronic pain; M54.9 Dorsalgia, unspecified; F32.9 Major depressive disorder, single episode, unspecified; F41.9 Anxiety disorder, unspecified; E83.110 Hereditary hemochromatosis; E86.0 Dehydration; L27.0 Generalized skin eruption due to drugs and medicaments taken internally; T47.1X5A Adverse effect of other antacids and anti-gastric-secretion drugs, initial encounter; Y92.230 Patient room in hospital as the place of occurrence of the external cause; K59.03 Drug induced constipation; T40.605A Adverse effect of unspecified narcotics, initial encounter; E87.6 Hypokalemia; K31.89 Other diseases of stomach and duodenum